=== PATIENT | male | born 1960 | race Caucasian/White ===

== ENCOUNTER → 2017-01-21 | Outpatient (CLI) | payer BC ==
--- NOTE | 2017-01-21 13:23 | DIAGNOSTIC IMAGING REPORT ---
CT OF THE HEAD WITHOUT CONTRAST CLINICAL HISTORY: Recurrent headaches. COMPARISON STUDY: Head CT December 20, 2005 and MRI the brain December 26, 2005. CT DOSE: 749.40 mGy.cm TECHNIQUE: Helical axial images of the head were obtained without IV contrast. Automated exposure control was utilized for the study. A dose lowering technique was utilized adhering to the principles of ALARA. FINDINGS: No acute intracranial hemorrhage, midline shift or mass effect is present. Ventricular system is normal. Basilar cisterns are patent. There are no extra-axial collections. [place]-white differentiation is maintained. There are no CT findings to suggest acute dural sinus thrombosis or acute territorial infarct. Visualized portions of the sinuses and mastoid air cells are clear. There are no significant calvarial abnormalities. IMPRESSION: No acute intracranial findings. Electronically signed by: Jason Hamlin M.D. 01/21/2017 1:22 PM Dictated Date/Time: 01/21/2017 1:17 PM
== END | disposition home or self-care (01) ==
LOC: C.CTS 13:03
PROVIDERS: ATTEND Family Medicine
DX: R51 Headache (principal)

== ENCOUNTER 2018-08-09 15:14 | Inpatient (IN) ==
[2018-08-09] MEDS ORDERED: dilTIAZem HCl 5 MG/ML 5 ML VIAL IV ONE (15:29)
[2018-08-09] MEDS ORDERED: dilTIAZem HCl 5 MG/ML 5 ML VIAL IV STA (15:31)
--- NOTE | 2018-08-09 15:37 | Emergency Department Note ---
Entered by Mohinder Smith acting as a scribe for Adelfo Buchanan DO History of Present Illness General Chief complaint: Chest Pain Stated complaint: CHEST PAIN NAUSEA Time Seen by Provider: 08/09/18 15:25 Source: patient Mode of arrival: ambulatory History of Present Illness Provider complaint: Chest Pain Onset (ago): hour(s) 2 Location: chest Pain Consistency: + constant Associated symptoms: + chest pain, + shortness of breath and + weakness; no nausea/vomiting Patient is a 58 year old male who presents himself to the ED with complains of chest pain which started two hours ago. He states he has been having occasional fluttering for the past couple months but they did not last too long. He is in the ED today as it was the worst today, The patient states he walks frequently during work which may be causing some of his symptoms. He notes having no past medical history and that he has scheduled an appointment with [facility] later next week. Home Medications Home Medications Medication Instructions Recorded Confirmed Type aspirin [Aspir-81] 81 mg PO DAILY 08/09/18 08/09/18 History atorvastatin 20 mg PO DAILY 08/09/18 08/09/18 History lisinopril 20 mg PO DAILY 08/09/18 08/09/18 History Allergies Allergy/AdvReac Type Severity Reaction Status Date / Time No Known Allergies Allergy Mild NONE Unverified 08/09/18 15:33 Past Med/Surg History Medical History Right foot pain (Chronic) Social History Feels Safe at Home: Yes Smoking Status: Never smoker Preferred Language: Austrian Review of Systems See HPI for pertinent positives & negatives. and A total of 10 systems reviewed and were otherwise negative Physical Exam Vital Signs Vital Signs - 24 hr 08/09/18 15:19 08/09/18 15:52 08/09/18 16:13 Temperature 36.3 C L Temperature Source Oral Sepsis Recent Fever Within 48 Hours No Sepsis New/Unexplained Change in Mental Status No Sepsis Action Taken by Nursing No Action Required Pulse Rate 98 H Pulse Rate [Left Finger] 86 80 Pulse Rhythm Pulse Rhythm [Left Finger] Irregular Pulse Strength [Left Finger] Normal Respiratory Rate 18 15 18 Respiratory Effort / Characteristics Non-Labored Non-Labored Respiratory Depth Normal Normal Respiratory Pattern Regular Blood Pressure 114/84 Blood Pressure [Left Arm] 103/69 115/65 Blood Pressure Mean 94 Blood Pressure Mean [Left Arm] 80 81 Blood Pressure Position Sitting Blood Pressure Position [Left Arm] Lying Pulse Oximetry 97 97 93 Oxygen Delivery Method Room Air 08/09/18 16:14 08/09/18 16:27 08/09/18 16:59 Temperature Temperature Source Sepsis Recent Fever Within 48 Hours Sepsis New/Unexplained Change in Mental Status Sepsis Action Taken by Nursing Pulse Rate 81 Pulse Rate [Left Finger] 95 H 73 Pulse Rhythm Irregular Pulse Rhythm [Left Finger] Pulse Strength [Left Finger] Respiratory Rate 18 19 18 Respiratory Effort / Characteristics Respiratory Depth Respiratory Pattern Blood Pressure Blood Pressure [Left Arm] 138/73 116/74 Blood Pressure Mean Blood Pressure Mean [Left Arm] 94 88 Blood Pressure Position Blood Pressure Position [Left Arm] Pulse Oximetry 94 95 96 Oxygen Delivery Method Room Air CONSTITUTIONAL/VITAL SIGNS: Reviewed / noted above. GENERAL: Non-toxic in appearance. INTEGUMENTARY: Warm, dry, and [place]. HEAD: Normocephalic. EYES: without scleral icterus or trauma. ENT/OROPHARYNX: clear and moist. LYMPHADENOPATHY/NECK: Is supple without lymphadenopathy or meningismus. RESPIRATORY: Lungs clear and equal. CARDIOVASCULAR: Regular irregular rate and rhythm. GUSTAVO GI/ABDOMEN: Soft and nontender. No organomegaly or pulsatile mass. No rebound or guarding. Normal bowel sounds. EXTREMITIES: Warm and well perfused. BACK: No CVA tenderness. NEUROLOGICAL: Intact without focal deficits. PSYCHIATRIC: normal affect. MUSCULOSKELETAL: Normally developed with good muscle tone. Course 1528: Past medical records reviewed. The patient was evaluated in room B01, and a complete history and physical examination were performed. 1616: I reevaluated the patient and gave updates to the patient regarding the treatment plan. 1713- I admitted the patient under the care of Dr. Drew Wing, Hospital[place], [facility] I spoke to the patient regarding the treatment plan they verbalized agreement. . Administered Medications Diltiazem HCl 125 mg/ Dextrose 125 mls @ 0 mls/hr IV .Q0M [facility]; Protocol Stop: 09/08/18 15:44 Last Admin: 08/09/18 16:12 Dose: 10 mg/hr, 10 mls/hr Discontinued Medications Diltiazem HCl (Cardizem) Confirm Administered Dose 50 mg IV .STK-MED ONE Stop: 08/09/18 15:30 Last Increment: 08/09/18 15:42 Dose: 30 mg Diltiazem HCl (Cardizem) 30 mg IV NOW STA Stop: 08/09/18 15:32 Last Admin: 08/09/18 15:43 Dose: Not Given Ondansetron HCl (Zofran) 4 mg IV NOW STA Stop: 08/09/18 16:18 Last Admin: 08/09/18 16:25 Dose: 4 mg Medical Decision Making Differential Diagnosis Differential includes acute coronary syndrome, myocardial infarction, CVA, TIA , anemia, infection, pneumonia, UTI, pyelonephritis, poor nutrition, dehydration , electrolyte disturbance,hypoglycemia. Medical Records Attestation: I reviewed the patient's medical records. Home Medications Current Medication List: was personally reviewed by me Laboratory Data Attestation: I reviewed the patient's lab results. Result diagrams: 08/09/18 15:32 08/09/18 15:32 Lab Results 08/09/18 08/09/18 08/09/18 Range/Units 15:32 15:32 15:32 WBC 9.39 (4.8-10.8) K/uL RBC 5.47 (4.7-6.1) M/uL Hgb 16.1 (14.0-18.0) g/dL POC Hgb (14.0-18.0) g/dl Hct 46.1 (42-52) % POC Hct (42-52) % MCV 84.3 (80-100) fL MCH 29.4 (25-34) pg MCHC 34.9 (32-36) g/dL RDW Std Deviation 39.7 (36.4-46.3) fL RDW Coeff of Andrew 13.0 (11.5-14.5) % Plt Count 272 (130-400) K/uL MPV 10.5 H (7.4-10.4) fL Immature Gran % (Auto) 0.2 % Neut % (Auto) 65.1 % Lymph % (Auto) 26.9 % [place] % (Auto) 5.5 % Eos % (Auto) 1.9 % Baso % (Auto) 0.4 % Immature Gran # (Auto) 0.02 (0.00-0.02) K/uL Neut # (Auto) 6.10 (1.4-6.5) K/uL Lymph # (Auto) 2.53 (1.2-3.4) K/uL [place] # (Auto) 0.52 (0.11-0.59) K/uL Eos # (Auto) 0.18 (0-0.5) K/uL Baso # (Auto) 0.04 (0-0.2) K/uL POC Sodium (135-144) mEq/L Sodium 140 (136-145) mmol/L POC Potassium (3.3-5.0) mEq/L Potassium 3.7 (3.5-5.1) mmol/L POC Chloride (101-112) mEq/L Chloride 109 H (98-107) mmol/L Carbon Dioxide 23 (21-32) mmol/L POC Total CO2 (24-31) mEq/l Anion Gap 8.0 (3-11) POC Anion Gap (16-25) mmol/L POC BUN (7-18) mg/dl BUN 16 (7-18) mg/dl Creatinine 1.06 (0.6-1.4) mg/dl POC Creatinine (0.6-1.3) mg/dl Est Cr Clr Drug Dosing 84.1 ml/min Est GFR ( Amer) 88.6 Est GFR (Non-Af Amer) 76.4 BUN/Creatinine Ratio 14.8 (10-20) Glucose 110 H (70-99) mg/dl POC Glucose (other) (70-99) mg/dl Calcium 8.4 L (8.5-10.1) mg/dl POC Ioniz Calcium Saúl (1.12-1.32) mmol/l Total Bilirubin 0.3 (0.2-1) mg/dl AST 22 (15-37) U/L ALT 28 (12-78) U/L Alkaline Phosphatase 73 (45-117) U/L Total Creatine Kinase 91 (39-308) U/L POC Troponin I (0-0.045) ng/ml Troponin I < 0.015 (0-0.045) ng/ml Total Protein 7.7 (6.4-8.2) gm/dl Albumin 3.7 (3.4-5.0) gm/dl Globulin 4.0 (2.5-4.0) gm/dl Albumin/Globulin Ratio 0.9 (0.9-2) TSH 1.060 (0.300-4.500) uIu/ml 08/09/18 08/09/18 Range/Units 15:32 15:33 WBC (4.8-10.8) K/uL RBC (4.7-6.1) M/uL Hgb (14.0-18.0) g/dL POC Hgb 15.3 (14.0-18.0) g/dl Hct (42-52) % POC Hct 45 (42-52) % MCV (80-100) fL MCH (25-34) pg MCHC (32-36) g/dL RDW Std Deviation (36.4-46.3) fL RDW Coeff of Andrew (11.5-14.5) % Plt Count (130-400) K/uL MPV (7.4-10.4) fL Immature Gran % (Auto) % Neut % (Auto) % Lymph % (Auto) % [place] % (Auto) % Eos % (Auto) % Baso % (Auto) % Immature Gran # (Auto) (0.00-0.02) K/uL Neut # (Auto) (1.4-6.5) K/uL Lymph # (Auto) (1.2-3.4) K/uL [place] # (Auto) (0.11-0.59) K/uL Eos # (Auto) (0-0.5) K/uL Baso # (Auto) (0-0.2) K/uL POC Sodium 143 (135-144) mEq/L Sodium (136-145) mmol/L POC Potassium 3.8 (3.3-5.0) mEq/L Potassium (3.5-5.1) mmol/L POC Chloride 106 (101-112) mEq/L Chloride (98-107) mmol/L Carbon Dioxide (21-32) mmol/L POC Total CO2 22 L (24-31) mEq/l Anion Gap (3-11) POC Anion Gap 19.0 (16-25) mmol/L POC BUN 16 (7-18) mg/dl BUN (7-18) mg/dl Creatinine (0.6-1.4) mg/dl POC Creatinine 1.0 (0.6-1.3) mg/dl Est Cr Clr Drug Dosing ml/min Est GFR ( Amer) Est GFR (Non-Af Amer) BUN/Creatinine Ratio (10-20) Glucose (70-99) mg/dl POC Glucose (other) 113 H (70-99) mg/dl Calcium (8.5-10.1) mg/dl POC Ioniz Calcium Saúl 1.14 (1.12-1.32) mmol/l Total Bilirubin (0.2-1) mg/dl AST (15-37) U/L ALT (12-78) U/L Alkaline Phosphatase (45-117) U/L Total Creatine Kinase (39-308) U/L POC Troponin I < 0.03 (0-0.045) ng/ml Troponin I (0-0.045) ng/ml Total Protein (6.4-8.2) gm/dl Albumin (3.4-5.0) gm/dl Globulin (2.5-4.0) gm/dl Albumin/Globulin Ratio (0.9-2) TSH (0.300-4.500) uIu/ml Imaging Data Attestation: I personally reviewed and interpreted this imaging study as follows : Radiologist's Impression: Radiology results as stated below per my review and the radiologist's interpretation: XR chest 1V portable CLINICAL HISTORY: 58 years-old Male presenting with Chest Pain. TECHNIQUE: Portable upright AP view of the chest was obtained. COMPARISON: 07/17/2011. FINDINGS: Cardiac silhouette top normal in size. No focal opacity. No large effusion or pneumothorax. Degenerative changes of the thoracic spine. Upper abdomen normal. IMPRESSION: 1. No acute cardiopulmonary disease. Electronically signed by: Wilian Pan M.D. 08/09/2018 3:45 PM ECG Data Attestation: I personally reviewed and interpreted this ECG as follows: Indication: chest pain Rate (beats per minute): 142 Rhythm: atrial fibrillation Findings: no ST elevation and no ectopy Blood Pressure Blood Pressure Findings: Normal blood pressure MDM Narrative This is a 58-year-old male who presents to the ED with a chief complaint of palpitations. The patient's symptoms started about 2 hours ago. He states that he has been having occasional fluttering that lasts only briefly for the past several months but today's episode lasted longer than any other one had. He had seen a key account manager and had a recent echocardiogram but does not know the results. He was also recently a event monitor. He states that he took it off when he was coming here. The patient's twelve-lead EKG here reveals atrial fibrillation at a rate of 142. The patient's exam as noted above. He does have a rapid irregular pulse and a systolic ejection murmur which the patient reports is chronic. CBC, complete metabolic panel, troponin, TSH were within normal limits. Chest x-ray did not show acute process. The patient was treated with IV Cardizem bolus with IV Cardizem drip. 30 mg bolus was provided. The patient's heart rate improved but the patient remained in atrial fibrillation. The patient was on a Cardizem drip. A repeat twelve-lead EKG after the heart rate was controlled reveals a heart rate of 73 in atrial fibrillation. No acute ischemic changes. The patient will be seen by the hospitalist for further evaluation and care. Impression & Plan Atrial fibrillation with rapid ventricular response Critical Care Time I have personally spent 30 minutes of critical care time in the direct management of this patient. This includes bedside care, interpretation of diagnostic studies, and testing, discussion with consultants, patient, and family members, and other required patient management activities. This 30 minutes is in excess of all separately billable procedures. Critical Care Time: Yes Total Critical Care Time: 30 Discharge Plan Visit Data Chief Complaint: Chest Pain Stated Complaint: CHEST PAIN NAUSEA ED Provider: Adelfo Buchanan Discharge Problem: Atrial fibrillation with rapid ventricular response Patient Disposition: Being Evaluated by Hospitalist Condition: Good Forms Stand Alone Forms: Call Back Authorization, My [facility] Prescriptions Prescriptions: No Action atorvastatin 20 mg tablet 20 mg PO DAILY RF: 0 lisinopril 20 mg tablet 20 mg PO DAILY RF: 0 aspirin [Aspir-81] 81 mg Tablet,Delayed Release (Dr/Ec) 81 mg PO DAILY RF: 0 Referrals Referrals: Fabricio Vogt DO [Primary Care Provider] - The scribe's documentation has been prepared under my direction and personally reviewed by me in its entirety. I confirm that the note above accurately reflects all work, treatment, procedures, and medical decision making performed by me.
[2018-08-09 15:45] LABS: Basophils # (auto) 0.04 K/uL (0-0.2); Basophils % (auto) 0.4 %; Eosinophils # (auto) 0.18 K/uL (0-0.5); Eosinophils % (auto) 1.9 %; Hematocrit (blood only) 46.1 % (42-52); Hemoglobin 16.1 g/dL (14.0-18.0); Immature Granulocytes # (auto) 0.02 K/uL (0.00-0.02); Immature Granulocytes % (auto) 0.2 %; Lymphocytes # (auto) 2.53 K/uL (1.2-3.4); Lymphocytes % (auto) 26.9 %; Mean Corpuscular Hgb Conc 34.9 g/dL (32-36); Mean Corpuscular Volume 84.3 fL (80-100); Mean Platelet Volume 10.5 fL (7.4-10.4); Monocytes # (auto) 0.52 K/uL (0.11-0.59); Monocytes % (auto) 5.5 %; Neutrophils % (auto) 65.1 %; Platelet Count 272 K/uL (130-400); RDW Standard Deviation 39.7 fL (36.4-46.3); Red Blood Count 5.47 M/uL (4.7-6.1); White Blood Count 9.39 K/uL (4.8-10.8)
[2018-08-09 15:46] LABS: iSTAT Hemoglobin 15.3 g/dl (14.0-18.0); iSTAT Ionized Calcium 1.14 mmol/l (1.12-1.32)
--- NOTE | 2018-08-09 15:47 | XRay Report ---
XR chest 1V portable CLINICAL HISTORY: 58 years-old Male presenting with Chest Pain. TECHNIQUE: Portable upright AP view of the chest was obtained. COMPARISON: 07/17/2011. FINDINGS: Cardiac silhouette top normal in size. No focal opacity. No large effusion or pneumothorax. Degenerat felix changes of the thoracic spine. Upper abdomen normal. IMPRESSION: 1. No acute cardiopulmonary disease. Electronically signed by: Wilian Pan M.D. 08/09/2018 3:45 PM
[2018-08-09 16:04] LABS: Alanine Aminotransferase 28 U/L (12-78); Albumin Level 3.7 gm/dl (3.4-5.0); Aspartate Aminotransferase 22 U/L (15-37); BUN Creatinine Ratio 14.8 (10-20); Blood Urea Nitrogen 16 mg/dl (7-18); Calcium 8.4 mg/dl (8.5-10.1); Carbon Dioxide 23 mmol/L (21-32); Chloride 109 mmol/L (98-107); Creatinine Clr Calc Pharmacy 84.1 ml/min; Est GFR (African American) 88.6; Est GFR (Non-African American) 76.4; Glucose 110 mg/dl (70-99); Potassium 3.7 mmol/L (3.5-5.1); Sodium 140 mmol/L (136-145)
[2018-08-09] MEDS: dilTIAZem HCl 125 MG in DEXTROSE 5% 100 ML IV SCH ×2 (16:12→20:25)
[2018-08-09 16:15] LABS: Albumin Globulin Ratio 0.9 (0.9-2); Alkaline Phosphatase 73 U/L (45-117); Bilirubin,Total 0.3 mg/dl (0.2-1); Total Protein 7.7 gm/dl (6.4-8.2); Troponin I < 0.015 ng/ml (0-0.045)
[2018-08-09] MEDS ORDERED: ONDANSETRON INJ 2 MG/ML 2 ML VIAL IV STA (16:17)
--- NOTE | 2018-08-09 18:34 | History & Physical Report ---
Date of Service August 09, 2018 Assessment & Plan (1) Atrial fibrillation with rapid ventricular response: new onset of intense symptoms, occurred about 2 hours prior to presentation however, has recent history of palpitations and irregular heart beat was being worked up as outpatient, was wearing monitor admit to tele continue Cardizem drip for rate control, convert to PO medications tomorrow per cardiology Lovenox 1mg/kg q12 for full anticoagulation had echo as outpatient, Dr. Rachel will have these results cycle troponin to r/o ACS since he did have some chest pressure will defer to Dr. Rachel for definitive management moving forward (2) HTN (hypertension): hold Lisinopril since BP is normal on Cardizem drip likely stop the Lisinopril on discharge if he will be on oral rate control (3) Dyslipidemia: continue Lipitor 35 minutes spent on this admission History of Present Illness Chief Complaint: I felt my heart was pounding in my chest Primary Care Provider: Fabricio Vogt, DO 58 yo male with history of HTN and dyslipdemia, presented to the ED c/o heart palpitations, mild chest discomfort, diaphoresis and feeling flushed. He says that he was sitting watching television when he developed the above symptoms. He reports that he has felt palpitations intermittently for the past few weeks. He saw his PCP in the office, EKG showed normal sinus rhythm. He was set up with an event monitor for a few weeks, echocardiogram ordered and he is supposed to have cardiology consultation on Friday with Dr. Rachel. He says that while wearing the monitor he has pushed the button several times when he felt like he was having palpitations. He said that Dr. Vogt, his PCP, started him on Lisinopril 20mg daily and Lipitor 20mg daily two weeks ago. He said that he has not been great at taking the medications every day, he has never needed to take medications in his life. He says that for the past two weeks he has felt worse in general. 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 Prior to the past two weeks he has never had chest pain or pressure. He had a stress test many years ago that was normal. When his symptoms of chest pressure, palpitations, sweats and flushing got worse he decided to come to the ED. On the monitor he was in afib with rates in the 140's. Given bolus of cardizem and started on drip, HR down into the 70- 80's, still in atrial fibrillation. CBC and BMP unremarkable. He now feels better. Patient has a family history of a sister who dropped from a heart attack at age 58, one year younger than he is now. She smoked and had elevated cholesterol and was not as fit as him, but it still worries him. He had an uncle on his father's side who from [place] at age 60. His mother from cancer. His father in an MVA when he was younger. Allergies Allergy/AdvReac Type Severity Reaction Status Date / Time No Known Allergies Allergy Mild NONE Unverified 08/09/18 15:33 Home Medications Home Medications Medication Instructions Recorded Confirmed Type aspirin [Aspir-81] 81 mg PO DAILY 08/09/18 08/09/18 History atorvastatin 20 mg PO DAILY 08/09/18 08/09/18 History lisinopril 20 mg PO DAILY 08/09/18 08/09/18 History Past Med/Surg History Medical History Right foot pain (Chronic) Dyslipidemia HTN (hypertension) Family History Sister , age 58 Heart attack Uncle , age 60 Heart attack Social History Feels Safe at Home: Yes Smoking Status: Never smoker Preferred Language: Wolof Review of Systems All systems reviewed & are unremarkable except as noted in HPI & below Constitutional: + sweats, + fatigue and + weakness; no weight loss Cardiovascular: + chest pain, + chest pain at rest, + dyspnea and + palpitations ; no chest pain with activity, no radiating jaw, neck or arm pain, no dyspnea at rest, no dyspnea on exertion, no orthopnea, no syncope, no edema, no calf pain and no claudication Physical Exam 2 Vital Signs (Past 24 Hours): Last Vital Signs Temp 36.3 C L 08/09/18 15:19 Pulse 70 08/09/18 17:55 Resp 18 08/09/18 17:55 BP 111/72 08/09/18 17:55 Pulse Ox 96 08/09/18 17:55 Constitutional: WD/WN, vitals as above Eyes: PERRL, conjunctivae normal, anicteric sclerae ENMT: external ear and nose normal, oropharynx normal Neck: trachea midline, no thyromegaly Respiratory: normal respiratory effort, lungs clear to auscultation Cardiovascular: Rate/Rhythm: regular rate; + abnormal rhythm (irregular irregular) Heart Sounds: normal S1 and + murmur (soft, systolic, heard best at apex); + abnormal S2 (crisp, almost like a click) Palpation: normal PMI Vessels: normal peripheral pulses; no JVD Extremities: no pedal edema Gastrointestinal (Abdomen): normal bowel sounds, soft, nontender, no hepatosplenomegaly Musculoskeletal: no cyanosis or clubbing, extremities motor strength 5/5 Skin: no rashes, warm and dry Neurologic: patellar DTR's 2+ bilat, sensation intact and PERRL, EOMI, accommodation nl, no face palsy, no dysarthria Psychiatric: A+Ox3, euthymic affect Lymphatic: no cervical or axillary lymphadenopathy Results & Data Laboratory Results Laboratory Results - last 24 hr 08/09/18 08/09/18 08/09/18 15:32 15:32 15:32 WBC 9.39 RBC 5.47 Hgb 16.1 POC Hgb Hct 46.1 POC Hct MCV 84.3 MCH 29.4 MCHC 34.9 RDW Std Deviation 39.7 RDW Coeff of Andrew 13.0 Plt Count 272 MPV 10.5 H Immature Gran % (Auto) 0.2 Neut % (Auto) 65.1 Lymph % (Auto) 26.9 [place] % (Auto) 5.5 Eos % (Auto) 1.9 Baso % (Auto) 0.4 Immature Gran # (Auto) 0.02 Neut # (Auto) 6.10 Lymph # (Auto) 2.53 [place] # (Auto) 0.52 Eos # (Auto) 0.18 Baso # (Auto) 0.04 POC Sodium Sodium 140 POC Potassium Potassium 3.7 POC Chloride Chloride 109 H Carbon Dioxide 23 POC Total CO2 Anion Gap 8.0 POC Anion Gap POC BUN BUN 16 Creatinine 1.06 POC Creatinine Est Cr Clr Drug Dosing 84.1 Est GFR ( Amer) 88.6 Est GFR (Non-Af Amer) 76.4 BUN/Creatinine Ratio 14.8 Glucose 110 H POC Glucose (other) Calcium 8.4 L POC Ioniz Calcium Saúl Total Bilirubin 0.3 AST 22 ALT 28 Alkaline Phosphatase 73 Total Creatine Kinase 91 POC Troponin I Troponin I < 0.015 Total Protein 7.7 Albumin 3.7 Globulin 4.0 Albumin/Globulin Ratio 0.9 TSH 1.060 08/09/18 08/09/18 15:32 15:33 WBC RBC Hgb POC Hgb 15.3 Hct POC Hct 45 MCV MCH MCHC RDW Std Deviation RDW Coeff of Andrew Plt Count MPV Immature Gran % (Auto) Neut % (Auto) Lymph % (Auto) [place] % (Auto) Eos % (Auto) Baso % (Auto) Immature Gran # (Auto) Neut # (Auto) Lymph # (Auto) [place] # (Auto) Eos # (Auto) Baso # (Auto) POC Sodium 143 Sodium POC Potassium 3.8 Potassium POC Chloride 106 Chloride Carbon Dioxide POC Total CO2 22 L Anion Gap POC Anion Gap 19.0 POC BUN 16 BUN Creatinine POC Creatinine 1.0 Est Cr Clr Drug Dosing Est GFR ( Amer) Est GFR (Non-Af Amer) BUN/Creatinine Ratio Glucose POC Glucose (other) 113 H Calcium POC Ioniz Calcium Saú[place] 1.14 Total Bilirubin AST ALT Alkaline Phosphatase Total Creatine Kinase POC Troponin I < 0.03 Troponin I Total Protein Albumin Globulin Albumin/Globulin Ratio TSH Diagnostic Findings CHEST XRAY: no acute cardiopulmonary disease ECG Indication: palpitations Rhythm: atrial fibrillation Code Status & VTE Plan Code Status full code VTE Prophylaxis Plan VTE Prophylaxis will be ordered: Yes
[2018-08-09] MEDS ORDERED: ACETAMINOPHEN 325 MG TAB PO PRN (19:15)
[2018-08-09] MEDS ORDERED: POLYETHYLENE (MIRALAX) 17 GM PACK PO PRN (19:15)
[2018-08-09] MEDS: ONDANSETRON INJ 2 MG/ML 2 ML VIAL IV PRN (20:25)
[2018-08-09 20:33] LABS: Prothrombin Time 9.9 Seconds (9.0-12.0)
[2018-08-09] MEDS ORDERED: NSS + 20MEQ KCL 20 MEQ/1,000 ML BAG IV SCH (21:00)
[2018-08-09] MEDS: ENOXAPARIN 100 MG/1ML SYR SQ SCH (21:02)
[2018-08-10 05:55] LABS: Basophils # (auto) 0.02 K/uL (0-0.2); Basophils % (auto) 0.2 %; Eosinophils % (auto) 2.2 %; Hematocrit (blood only) 41.2 % (42-52); Immature Granulocytes # (auto) 0.01 K/uL (0.00-0.02); Immature Granulocytes % (auto) 0.1 %; Lymphocytes # (auto) 2.96 K/uL (1.2-3.4); Lymphocytes % (auto) 32.5 %; Mean Corpuscular Volume 85.7 fL (80-100); Mean Platelet Volume 10.4 fL (7.4-10.4); Monocytes # (auto) 0.48 K/uL (0.11-0.59); Monocytes % (auto) 5.3 %; Neutrophils # (auto) 5.43 K/uL (1.4-6.5); Neutrophils % (auto) 59.7 %; Platelet Count 232 K/uL (130-400); RDW Coefficient of Variation 13.2 % (11.5-14.5); RDW Standard Deviation 41.3 fL (36.4-46.3); Red Blood Count 4.81 M/uL (4.7-6.1)
[2018-08-10 06:34] LABS: BUN Creatinine Ratio 14.6 (10-20); Calcium 8.2 mg/dl (8.5-10.1); Creatinine Clr Calc Pharmacy 94.4 ml/min; Est GFR (African American) 109.5; Est GFR (Non-African American) 94.5
[2018-08-10] MEDS: ASPIRIN 81 MG ECTAB PO SCH (09:03)
[2018-08-10] MEDS: ATORVASTATIN 20 MG TAB PO SCH (09:03)
[2018-08-10] MEDS: ENOXAPARIN 100 MG/1ML SYR SQ SCH (09:11)
--- NOTE | 2018-08-10 10:13 | Consultation Report ---
DATE OF CONSULTATION: 08/10/2018 REQUESTING PHYSICIAN: Noman Wing DO REASON FOR CONSULTATION: Atrial fibrillation and murmur consistent with mitral regurgitation. Dear Noman: Thank you for requesting cardiology consultation on Justin. As you know, he has described palpitations over the last 3 months intermittently, usually only lasting a couple of minutes. He notes on Friday they lasted longer. 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 He was nauseous. 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 He was able to complete the day. He notes on Friday he felt better. He has had an event recorder on and we know from his event recorder both Friday afternoon as well as Friday, he had recurrent atrial fibrillation. On Friday, again he felt fluttering and felt like his heart was racing. He did not feel well and was nauseous again. 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 This subsequently caused him to come to the Emergency Room. In the ER, he was found to be in atrial fibrillation with a rapid ventricular response. It looks like he was given a bolus of diltiazem and then they started him on a drip. He had a syncopal episode after this with loss of bowel function. It sounds like he was hypotensive, likely from the diltiazem bolus although this is not documented. He has had a murmur for approximately 4 years. He had an echocardiogram scheduled, which was completed in our office, which reveals mitral valve prolapse with prolapse of the P2 segment and possibly P1 with severe mitral regurgitation with a very eccentric jet directed towards the interatrial septum. The mitral regurgitation wraps around the left atrium to the posterior wall with pulmonary vein reversal. His LVEF was in the range of 60%. It did not appear hyperdynamic. There were no wall motion abnormalities and he had type 2 diastolic dysfunction. In addition, his pulmonary artery pressures were normal. He is feeling better now. The nausea has resolved. He is still in atrial fibrillation, but his heart rates are better controlled on 5 mg of diltiazem via IV. REVIEW OF SYSTEMS: Denies any light dizziness, presyncope, or syncope outside of the ER episode. He has some vague left-sided chest pain while in Afib but his troponins are negative. He denies any lower extremity edema, symptoms of claudication. Denies any abdominal distention, fevers, chills, sweats, cough, or productive sputum. His appetite and weight are stable. The rest of review of system is otherwise negative. 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 He has 1 alcoholic beverage a week. He denies any tobacco. He is . FAMILY HISTORY: His sister of a heart attack at the age of 58. He has an uncle who at the age of 60 of heart attack. PAST MEDICAL HISTORY: 1. Mitral valve prolapse with severe mitral regurgitation. 2. EF in the range of 60% by outpatient echo. 3. Atrial fibrillation with a rapid ventricular response. 4. Hypertension. 5. Hyperlipidemia. ALLERGIES: No known drug allergies. OUTPATIENT MEDICATIONS: Aspirin, atorvastatin 20 mg daily, and Lisinopril 20 mg daily. PHYSICAL EXAMINATION: HEENT: 1+ carotid upstrokes. No carotid bruits. Venous pressure appeared normal. Sclerae is anicteric. Hearing is normal. LUNGS: Respirations bilaterally. No rales, rhonchi or wheezing. HEART: Irregular rate and rhythm with a harsh holosystolic murmur 3/6 at the apex. ABDOMEN: Soft, nontender, nondistended. Positive bowel sounds. EXTREMITIES: No clubbing, cyanosis, or edema. PSYCHIATRIC: His affect appeared appropriate. NEUROLOGIC: He is awake, alert and oriented x3. DIAGNOSTIC STUDIES: Discussed above. EKG this morning, atrial fibrillation with a controlled ventricular response early repolarization, left ventricular hypertrophy. LABORATORY STUDIES: His troponins are negative x3. His hemoglobin is 14.0. His platelet count is 232. PT and INR were normal. Sodium 142, potassium 4.0, BUN 13, creatinine 0.87. His troponins are negative x3. IMPRESSION: 1. New onset atrial fibrillation with rapid ventricular response. 2. Newly-diagnosed mitral valve prolapse, predominantly involving the P2 segment with severe eccentric mitral regurgitation. 3. Normal left ventricular systolic function with an ejection fraction in the range of 60%, but not hyperdynamic as one would expect with severe mitral regurgitation. 4. Severe left atrial enlargement. 5. CHADS2-VASc score of 1, that being hypertension. As I discussed with Justin, the biggest issue is actually not his atrial fibrillation but rather the fact that he has severe mitral regurgitation, which is now symptomatic and causing volume overload on the left ventricle. We discussed that his EF should be hyperdynamic at least in the range of 65%-70% if not, greater. In light of that, he needs to consider mitral valve repair and a maze procedure at the same time to help treat his atrial fibrillation. Given the size of his left atrium and the ongoing mitral regurgitation, there is no benefit of trying to cardiovert him as it is unlikely he will stay in sinus rhythm. His current CHADS2-VASc score is 1 that being hypertension. Therefore, he just needs aspirin therapy and not anticoagulation. I discussed to him as part of the process for the workup for his mitral valve repair, he would need a cardiac catheterization as well as a transesophageal echocardiogram. I discussed the risks and benefits of cardiac catheterization. Risks including but not limited to bleeding or infection of the puncture site, damage to his radial or femoral artery, risk of contrast-induced nephropathy, allergic reaction to contrast, and 100,000 risk of heart attack, stroke or dying with the procedures were discussed. I will also need a transesophageal echocardiogram to confirm that it is the P2 segment that needs to be repaired. Additionally, he will need to be seen by CT surgery at [facility] as an outpatient along with a CAT scan of his chest and preadmission testing with anesthesia. I did discuss with him assuming it is a P2 segment, the success rate is very high with mitral valve repair which is another reason to proceed sooner than later. There is still a small chance that he would end up with a prosthetic valve if the valve is not repairable. We also discussed that he is a potential candidate for a mini thoracotomy in order to repair his mitral valve as opposed to a traditional sternotomy. This was a lot for him to take in at a single point in time. We discussed all this in detail. He has not had his medications this morning. We will make him n.p.o. and plan for his catheterization today. I will contact the echo lab to determine the timing of his JOSE. Thank you for allowing us to participate in his care. Addendum: D/W Dr Sams. Cath with LM 50-60% (+by IFR) and severe ostial cx disease. Needs transfer to [facility] for Cabg and MV repair. Chads 2 Vasc now 2 with CAD and will need AC fdc. Will discuss transfer in the am. MELLISSA
[2018-08-10] MEDS: METOPROLOL TARTRATE 25 MG TAB PO SCH ×3 (10:37→19:46)
[2018-08-10] MEDS ORDERED: dilTIAZem HCl 125 MG in DEXTROSE 5% 100 ML IV SCH (11:20)
[2018-08-10] MEDS: ONDANSETRON INJ 2 MG/ML 2 ML VIAL IV PRN (12:45)
--- NOTE | 2018-08-10 13:20 | Medical Student Progress Note ---
Date of Service August 10, 2018 Assessment & Plan (1) Atrial fibrillation with rapid ventricular response: 1. Consulted cardiology who found Mitral valve prolapse on echo. Cardiology suggested need for repair of mitral valve sooner rather than later in [place]. In order to prepare for this procedure, the patient will need: a. Cardiac catheterization, hopefully this afternoon, he has been NPO since 7 :30 am b. JOSE to visualize the mitral valve leaflets, Cardiology will try to set this up later today 2. Discontinue diltiazem IV and start metoprolol 25 mg Present on Admission?: No Subjective Mr. Sears began to feel better after he was admitted to telemetry last night. Overnight, he felt a flutter in his chest every so often, especially if he laid on his left side. He still has an aching pain in his left chest. His nausea has resolved. Review of Systems All systems reviewed & are unremarkable except as noted in HPI & below Cardiovascular: + chest pain, + chest pain at rest and + palpitations Physical Exam 2 Vital Signs (Past 24 Hours): Last Vital Signs Temp 36.7 C 08/10/18 07:14 Pulse 90 08/10/18 10:37 Resp 15 08/10/18 10:37 BP 111/73 08/10/18 10:37 Pulse Ox 96 08/10/18 10:37 Constitutional: well developed and well nourished Eyes: PERRL, conjunctivae normal, anicteric sclerae ENMT: external ear and nose normal, oropharynx normal Neck: normal visual inspection No JVD Respiratory: normal respiratory effort, lungs clear to auscultation Cardiovascular: Rate/Rhythm: regular rate irregularly irregular rhythm, grade 3 holosystolic murmur heard at the mitral area Gastrointestinal (Abdomen): normal bowel sounds, soft, nontender, no hepatosplenomegaly Musculoskeletal: Extremities: extremities normal to inspection Skin: no rashes, warm and dry Psychiatric: A+Ox3, euthymic affect Lymphatic: no cervical or axillary lymphadenopathy Results & Data Laboratory Results CBC: WNL BMP: elevated Cl at 112, low Ca at 8.2 Diagnostic Findings Echo: mitral valve prolapse with severe mitral regurgetation, Ejection fraction : 60% CXR: no acute cardio/pulm disease process ECG Indication: palpitations Rhythm: atrial fibrillation
[2018-08-10] MEDS ORDERED: fentaNYL citrate 100 MCG/2 ML VIAL ONE ×2 (14:42→16:04)
[2018-08-10] MEDS ORDERED: MIDAZOLAM HCL 1 MG/ML 2ML VIAL ONE ×2 (14:42→16:03)
[2018-08-10] MEDS ORDERED: NiCARDipine HCL INJ 2.5 MG/ML 10 ML AMP ONE (14:43)
[2018-08-10] MEDS ORDERED: HEPARIN (PORCINE) 1000 UNIT/ML 10 ML (CATH LAB USE ONLY) ONE ×2 (14:43→16:12)
[2018-08-10] MEDS ORDERED: NITROGLYCERIN/D5W 100MCG/ML 20ML SYR ONE (14:43)
[2018-08-10 16:00] LABS: iSTAT Arterial Blood Gas HCO3 20 meg/L (19-24); iSTAT Carbon Dioxide 21 mEq/l (24-31)
--- NOTE | 2018-08-10 17:10 | Cardiology Consultation ---
Date of Consultation August 10, 2018 Assessment & Plan (1) Severe mitral regurgitation: 2. Atrial fibrillation with RVR 3. LVEF 60% 4. Severe left atrial enlargement 5. Hypertension Patient here with atrial fibrillation with RVR in the setting of symptomatic severe eccentric mitral regurgitation. Mitral valve repair is being considered. As part of workup agree with proceeding with right and left heart catheterization. No apparent contraindications to procedure and will plan to perform via antecubital vein and right radial artery. History of Present Illness Attending Physician: Noman Wing DO History of Present Illness Mr. Sears is a very pleasant 58-year-old man with a history of newly diagnosed atrial fibrillation with RVR complicated by syncope and severe mitral valve prolapse with resulting severe eccentric mitral regurgitation. Patient is followed by Dr. Rachel for his cardiac care. Interventional cardiology consulted for cardiac catheterization as part of evaluation for mitral repair. At time of interview patient feeling well. Denies any current palpitations, presyncopal symptoms. Rate controlled on diltiazem, Lopressor. Not currently on anticoagulation. Up until recently no prior cardiac tree. Never had a cardiac catheterization previously. Allergies Allergy/AdvReac Type Severity Reaction Status Date / Time No Known Allergies Allergy Mild NONE Unverified 08/09/18 15:33 Home Medications Home Medications Medication Instructions Recorded Confirmed Type aspirin [Aspir-81] 81 mg PO DAILY 08/09/18 08/09/18 History atorvastatin 20 mg PO DAILY 08/09/18 08/09/18 History lisinopril 20 mg PO DAILY 08/09/18 08/09/18 History Patient History Medical History Right foot pain (Chronic) Dyslipidemia HTN (hypertension) Social History Current Living Situation: Spouse Other Information That Helps Us Care for You: No Feels Safe at Home: Yes Safety Concerns: Feels Safe At This Time Smoking Status: Never smoker Hx Alcohol Use: Yes Alcohol type: beer Alcohol Intake Frequency: a few times a week Hx Substance Use: No Beliefs That Will Affect Care: None Preferred Language: Irish Review of Systems 10 point review of systems was completed and was otherwise negative unless stated in HPI Physical Exam 2 Vital Signs (Past 24 Hours): Last Vital Signs Temp 36.7 C 08/10/18 07:14 Pulse 90 08/10/18 14:40 Resp 16 08/10/18 14:40 BP 126/87 08/10/18 14:40 Pulse Ox 97 08/10/18 14:40 Physical Exam: General: Comfortable, no acute distress Eyes: Sclerae anicteric, extraocular movements intact HENT: Oropharynx clear mucous membranes moist Neck: Normal carotid upstrokes, no bruits. No JVD. Lungs: Clear to auscultation bilaterally, no rhonchi or wheezes Cardiac: Irregularly irregular, holosystolic murmur heard best at the apex Vascular: 2+ radial, DP and PT pulses. No varicosities. Abdomen: Soft, nontender, nondistended, positive bowel sounds. Extremities: Well perfused, no peripheral edema Skin: No rashes or lesions. Neuro: Nonfocal Psych: Alert orient x3, normal affect and mood
--- NOTE | 2018-08-10 17:10 | Pre Anesthesia Assessment ---
Date of Service August 10, 2018 Pre Sedation Assessment Vital Signs Temp Pulse Pulse Pulse Resp BP BP 08/10/18 14:40 90 16 126/87 08/10/18 10:37 90 15 111/73 08/10/18 07:14 36.7 C 87 15 114/76 08/10/18 07:00 74 08/10/18 03:37 36.7 C 76 19 08/09/18 23:15 36.8 C 77 16 08/09/18 20:19 79 08/09/18 19:10 36.4 C L 83 20 08/09/18 18:55 72 18 122/78 08/09/18 17:55 70 18 111/72 BP Pulse Ox 08/10/18 14:40 97 08/10/18 10:37 96 08/10/18 07:14 96 08/10/18 07:00 08/10/18 03:37 131/79 97 08/09/18 23:15 115/72 96 08/09/18 20:19 139/76 08/09/18 19:10 147/89 H 94 08/09/18 18:55 95 08/09/18 17:55 96 Cardiovascular RRR, no murmur, no edema Respiratory normal respiratory effort, lungs clear to auscultation Pre-Sedation Airway Assessment Smoking Status: Never smoker Hx Sleep Apnea: No Hx Difficult Intubation: No Short, Thick Neck: No Thyromental Distance: > or= 3.5 Finger Breadths Mallampati Class: III Procedure Planning Contraindications for Sedation: none Current Medications Reviewed: Yes Notes The planned sedation has been discussed with the patient. Informed Consent was obtained. I have identified the patient, determined the appropriateness of sedation and have assessed the patient immediately prior to the procedure. All medicine(s) and interventions are by my order.
--- NOTE | 2018-08-10 17:10 | Cardiac Catheterization ---
Cardiac Cath Procedure Full Procedure Date August 10, 2018 Pre-Procedure Diagnosis Pre-Procedure Diagnosis: Valvular Disease AUC Score AUC Score: 7 Post-Procedure Diagnosis Post-Procedure Diagnosis: Severe CAD and Normal Intracardiac Pressures Procedure(s) Performed Procedure(s) Performed: Coronary Angiography, Left Heart Cath, Right Heart Cath and Fractional Flow [place] [facility] Nurse Scotty Sams MD Technician(s) Glunt Estimated Blood Loss Estimated Blood Loss: 10 Medication(s) Medication(s): Fentanyl, Heparin, Lidocaine 1%, Nicardipine, Nitroglycerin and Versed Summary of Findings Indication: Severe symptomatic mitral regurgitation Access: 5 [place] right radial artery, 6 [place] right antecubital vein Catheters: [place], 6 [place]. 5 [place] JL 3.5 guide, 5 [place] JR4 guide Findings: LM -50% eccentric distal left main stenosis just prior to bifurcation LAD -moderate caliber vessel, mild diffuse proximal disease, distal luminal irregularities as tapers to apex. Gives off 2 moderate caliber diagonals without significant disease Circumflex -small to moderate caliber vessel, 90% ostial stenosis, diffuse mild to moderate mid segment disease prior to OM 2 RCA -large caliber vessel, dominant, mid segment luminal irregularities, 50-60% distal stenosis at bifurcation of right PDA, right PLB. FFR of left main Left main cannulated with JL 3.5 guide Straight FFR wire placed into mid LAD iFR 0.87 Post procedure no coronary complications FFR of distal RCA RCA cannulated with JR4 guide Straight FFR wire placed into right PDA iFR 0.94 Post procedure no coronary complications RA 3 RV 30/4 PA 29/13 (21) PAWP 9 (V waves to 27) LV 4 PaSat 61% AoSat 91% Ibeth CO/CI 4.5/2.2 Thermo CO/CI 4.8/2.4 Arterial Closure: TR Summary: 1. Severe multivessel coronary artery disease -50% eccentric distal left main (hemodynamic significant by iFR 0.87). -90% ostial circumflex 50-60% distal RCA (nonobstructive by iFR 0.94). 2. Normal left and right-sided filling pressures. 3. Normal pulmonary artery pressures. 4. Preserved cardiac output. 5. Severe mitral regurgitation by echocardiogram Recommendations: Dr. 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
--- NOTE | 2018-08-10 17:11 | Hospitalist Progress Note ---
Date of Service August 10, 2018 Assessment & Plan (1) Severe mitral regurgitation: likely posterior leaf issue will get JOSE tomorrow to get better imaging of the mitral valve will need referral to [place] for mitral valve repair vs replacement heart cath today with moderate to severe disease, will likely need concurrent CABG (2) Atrial fibrillation with rapid ventricular response: new onset of intense symptoms, occurred about 2 hours prior to presentation however, has recent history of palpitations and irregular heart beat was being worked up as outpatient, was wearing monitor which showed short runs of atrial fibrillation afib caused by left atrial dilation from severe mitral regurgitation rates controlled on diltiazem drip converted to metoprolol 25mg TID today BP a little on low side, will monitor over night no need for anticoagulation since CHADS score 1, continue on aspirin (3) CAD (coronary artery disease): disease in RCA, circumflex, left main will refer to cardiothoracic surgery at [place] for CABG continue aspirin and Lipitor (4) HTN (hypertension): continue Metoprolol 25mg TID will stop Lisinopril on discharge (5) Dyslipidemia: continue Lipitor, now with known CAD Subjective patient feeling better this morning, no chest pain, no palpitations, no dyspnea or syncope discussed with Dr. Rachel, appreciate his recommendations for JOSE and heart catheterization discussed with Dr. Sams after cath, has moderate to severe disease in several areas, needs CABG reviewed labs, stable Review of Systems All systems reviewed & are unremarkable except as noted in HPI & below Cardiovascular: no chest pain, no dyspnea, no dyspnea on exertion and no palpitations Physical Exam 2 Vital Signs (Past 24 Hours): Last Vital Signs Temp 36.7 C 08/10/18 07:14 Pulse 90 08/10/18 14:40 Resp 16 08/10/18 14:40 BP 126/87 08/10/18 14:40 Pulse Ox 97 08/10/18 14:40 Constitutional: WD/WN, vitals as above Eyes: PERRL, conjunctivae normal, anicteric sclerae ENMT: external ear and nose normal, oropharynx normal Neck: trachea midline, no thyromegaly Respiratory: normal respiratory effort, lungs clear to auscultation Cardiovascular: Rate/Rhythm: regular rate; + abnormal rhythm (irregular irregular) Heart Sounds: normal S1 and + murmur (soft, systolic, heard best at apex); + abnormal S2 (crisp, almost like a click) Palpation: normal PMI Vessels: normal peripheral pulses; no JVD Extremities: no pedal edema Gastrointestinal (Abdomen): normal bowel sounds, soft, nontender, no hepatosplenomegaly Musculoskeletal: no cyanosis or clubbing, extremities motor strength 5/5 Skin: no rashes, warm and dry Neurologic: patellar DTR's 2+ bilat, sensation intact and PERRL, EOMI, accommodation nl, no face palsy, no dysarthria Psychiatric: A+Ox3, euthymic affect Lymphatic: no cervical or axillary lymphadenopathy Results & Data Laboratory Results Laboratory Results - last 24 hr 08/10/18 08/10/18 08/10/18 05:36 05:36 15:31 WBC 9.10 RBC 4.81 Hgb 14.0 Hct 41.2 L MCV 85.7 MCH 29.1 MCHC 34.0 RDW Std Deviation 41.3 RDW Coeff of Andrew 13.2 Plt Count 232 MPV 10.4 Immature Gran % (Auto) 0.1 Neut % (Auto) 59.7 Lymph % (Auto) 32.5 [place] % (Auto) 5.3 Eos % (Auto) 2.2 Baso % (Auto) 0.2 Immature Gran # (Auto) 0.01 Neut # (Auto) 5.43 Lymph # (Auto) 2.96 [place] # (Auto) 0.48 Eos # (Auto) 0.20 Baso # (Auto) 0.02 POC pH 7.38 POC pCO2 34 L POC pO2 61 L POC HCO3 20 POC Total CO2 21 L POC Base Excess -5.0 POC ABG O2 Sat 91.0 Sodium 142 Potassium 4.0 Chloride 112 H Carbon Dioxide 24 Anion Gap 6.0 BUN 13 Creatinine 0.87 Est Cr Clr Drug Dosing 94.4 Est GFR ( Amer) 109.5 Est GFR (Non-Af Amer) 94.5 BUN/Creatinine Ratio 14.6 Glucose 101 H Calcium 8.2 L Diagnostic Findings ECHOCARDIOGRAM: done as outpatient with [facility] cardiology EF preserved severe mitral regurgitation, possible posterior leaflet malfunction dilated left atrium Medications Administered Current Inpatient Medications Acetaminophen (Tylenol) 650 mg PO Q4H PRN PRN Reason: Pain or Fever Stop: 09/08/18 19:14 Aspirin (Ecotrin Ectab) 81 mg PO DAILY [facility] Stop: 09/09/18 08:59 Last Admin: 08/10/18 09:03 Dose: 81 mg Atorvastatin Calcium (Lipitor) 20 mg PO DAILY [facility] Stop: 09/09/18 08:59 Last Admin: 08/10/18 09:03 Dose: 20 mg Diltiazem HCl 125 mg/ Dextrose 125 mls @ 10 mls/hr IV .[id number] [facility]; Protocol Stop: 09/09/18 11:18 Last Admin: 08/10/18 13:45 Dose: Not Given Sodium Chloride (Nss 1000ml) 1,000 mls @ 75 mls/hr IV .[id number] [facility] Stop: 08/11/18 00:39 Last Admin: 08/10/18 17:48 Dose: 75 mls/hr Metoprolol Tartrate (Lopressor) 25 mg PO TID [facility] Stop: 09/09/18 09:59 Last Admin: 08/10/18 19:46 Dose: 25 mg Ondansetron HCl (Zofran) 4 mg IV Q6H PRN PRN Reason: Nausea Stop: 09/08/18 19:14 Last Admin: 08/10/18 12:45 Dose: 4 mg Polyethylene Glycol (Miralax Powder Packet) 17 gm PO DAILY PRN PRN Reason: Constipation Stop: 09/08/18 19:14
[2018-08-10] MEDS ORDERED: SODIUM CHLORIDE 0.9% 1000ML 1,000 ML IV SCH (18:00)
[2018-08-11] MEDS: ASPIRIN 81 MG ECTAB PO SCH (08:29)
[2018-08-11] MEDS: METOPROLOL TARTRATE 25 MG TAB PO SCH ×2 (08:29→13:23)
[2018-08-11] MEDS: ATORVASTATIN 20 MG TAB PO SCH (08:29)
[2018-08-11 08:45] LABS: Basophils # (auto) 0.03 K/uL (0-0.2); Basophils % (auto) 0.3 %; Hematocrit (blood only) 43.2 % (42-52); Hemoglobin 14.8 g/dL (14.0-18.0); Immature Granulocytes # (auto) 0.02 K/uL (0.00-0.02); Immature Granulocytes % (auto) 0.2 %; Lymphocytes # (auto) 1.82 K/uL (1.2-3.4); Lymphocytes % (auto) 18.8 %; Mean Corpuscular Hgb Conc 34.3 g/dL (32-36); Mean Corpuscular Volume 83.7 fL (80-100); Mean Platelet Volume 10.4 fL (7.4-10.4); Monocytes # (auto) 0.42 K/uL (0.11-0.59); Monocytes % (auto) 4.3 %; Neutrophils # (auto) 7.27 K/uL (1.4-6.5); Neutrophils % (auto) 75.4 %; Platelet Count 240 K/uL (130-400); RDW Coefficient of Variation 13.1 % (11.5-14.5); RDW Standard Deviation 40.3 fL (36.4-46.3); Red Blood Count 5.16 M/uL (4.7-6.1); White Blood Count 9.66 K/uL (4.8-10.8)
[2018-08-11 09:20] LABS: BUN Creatinine Ratio 14.1 (10-20); Calcium 8.5 mg/dl (8.5-10.1); Creatinine Clr Calc Pharmacy 89.3 ml/min; Est GFR (African American) 105.1; Est GFR (Non-African American) 90.7; Potassium 3.9 mmol/L (3.5-5.1)
--- NOTE | 2018-08-11 09:42 | Cardiology Progress Note ---
Date of Service August 11, 2018 no cp. Mild SOB at rest. + nausea at times and palps. No CP or pressure Tearful and upset over dx, expected Long discussion approx 20 minutes of risk and benefit of sx and what to expect during and recovery Gave him risk and hope and understanding that he will recover and be functional Rest of the complete ROS Negative Physical Exam 2 Vital Signs (Past 24 Hours): Last Vital Signs Temp 37.0 C 08/11/18 07:22 Pulse 96 H 08/11/18 07:22 Resp 16 08/11/18 07:22 BP 109/73 08/11/18 07:22 Pulse Ox 93 08/11/18 07:22 PHYSICAL EXAMINATION: HEENT: 1+ carotid upstrokes. No carotid bruits. Venous pressure appeared normal. Sclerae is anicteric. Hearing is normal. LUNGS: Respirations bilaterally. No rales, rhonchi or wheezing. HEART: Irregular rate and rhythm with a harsh holosystolic murmur 3/6 at the apex. ABDOMEN: Soft, nontender, nondistended. Positive bowel sounds. EXTREMITIES: No clubbing, cyanosis, or edema. PSYCHIATRIC: His affect appeared appropriate. NEUROLOGIC: He is awake, alert and oriented x3. Findings: LM -50% eccentric distal left main stenosis just prior to bifurcation LAD -moderate caliber vessel, mild diffuse proximal disease, distal luminal irregularities as tapers to apex. Gives off 2 moderate caliber diagonals without significant disease Circumflex -small to moderate caliber vessel, 90% ostial stenosis, diffuse mild to moderate mid segment disease prior to OM 2 RCA -large caliber vessel, dominant, mid segment luminal irregularities, 50-60% distal stenosis at bifurcation of right PDA, right PLB. FFR of left main Left main cannulated with JL 3.5 guide Straight FFR wire placed into mid LAD iFR 0.87 Post procedure no coronary complications FFR of distal RCA RCA cannulated with JR4 guide Straight FFR wire placed into right PDA iFR 0.94 Post procedure no coronary complications RA 3 RV 30/4 PA 29/13 (21) PAWP 9 (V waves to 27) LV 4 PaSat 61% AoSat 91% Ibeth CO/CI 4.5/2.2 Thermo CO/CI 4.8/2.4 Arterial Closure: TR Summary: 1. Severe multivessel coronary artery disease -50% eccentric distal left main (hemodynamic significant by iFR 0.87). -90% ostial circumflex 50-60% distal RCA (nonobstructive by iFR 0.94). 2. Normal left and right-sided filling pressures. 3. Normal pulmonary artery pressures. 4. Preserved cardiac output. 5. Severe mitral regurgitation by echocardiogram IMPRESSION: 1. New onset atrial fibrillation with rapid ventricular response. 2. Newly-diagnosed mitral valve prolapse, predominantly involving the P2 segment with severe eccentric mitral regurgitation. 3. Normal left ventricular systolic function with an ejection fraction in the range of 60%, but not hyperdynamic as one would expect with severe mitral regurgitation. 4. Severe left atrial enlargement. 5. CHADS2-VASc score of 2, that being hypertension and CAD 6. Severe LM disease and Prox 90% cx D/w Dr Sams yesterday Needs MV Repair, 2 V Cabg and MAZE procedure d/w [place] [facility] [place] Start Heparin drip Cont BB--rates controlled in Afib Change lipitor to crestor 40mg daily ASA 81mg daily D/w Dr Jackson [place] [facility] [place] physician .
[2018-08-11] MEDS ORDERED: Heparin IV Low Dose WITH Bolus IV ONE (09:52)
[2018-08-11] MEDS ORDERED: HEPARIN LOW DOSE DEXTROSE 25,000 UNITS/500 ML IV SCH (10:01)
[2018-08-11] MEDS ORDERED: HEPARIN IV BOLUS 4,000 UNITS in SYRINGE 0 ML IV ONE (10:30)
[2018-08-11 10:53] LABS: INR 1.1 (0.9-1.1); Partial Thromboplastin Time 26.4 Seconds (21.0-31.0); Prothrombin Time 10.8 Seconds (9.0-12.0)
[2018-08-11] MEDS ORDERED: METOPROLOL TARTRATE 1 MG/ML VIAL IV STA (16:15)
[2018-08-11 16:58] LABS: Partial Thromboplastin Ratio 1.3; Partial Thromboplastin Time 36.2 Seconds (21.0-31.0)
[2018-08-11] MEDS ORDERED: MoRPHine SULFATE 4 MG/ML 1 ML CARP\\VIAL IV STA (17:51)
[2018-08-11] MEDS ORDERED: MoRPHine SULFATE 4 MG/ML 1 ML CARP\\VIAL ONE (17:55)
[2018-08-11] MEDS ORDERED: NITROGLYCERIN SL 0.4 MG/TAB TAB SL STA (18:02)
[2018-08-11] MEDS ORDERED: HEPARIN IV BOLUS 4,500 UNITS in SYRINGE 0 ML IV ONE (18:15)
[2018-08-11] MEDS ORDERED: METOPROLOL TARTRATE 50 MG TAB PO SCH (21:00)
--- NOTE | 2018-08-11 22:01 | Discharge Summary ---
Date of Service August 11, 2018 Admission HPI Per Admitting Provider 58 yo male with history of HTN and dyslipdemia, presented to the ED c/o heart palpitations, mild chest discomfort, diaphoresis and feeling flushed. He says that he was sitting watching television when he developed the above symptoms. He reports that he has felt palpitations intermittently for the past few weeks. He saw his PCP in the office, EKG showed normal sinus rhythm. He was set up with an event monitor for a few weeks, echocardiogram ordered and he is supposed to have cardiology consultation on Friday with Dr. Rachel. He says that while wearing the monitor he has pushed the button several times when he felt like he was having palpitations. He said that Dr. Vogt, his PCP, started him on Lisinopril 20mg daily and Lipitor 20mg daily two weeks ago. He said that he has not been great at taking the medications every day, he has never needed to take medications in his life. He says that for the past two weeks he has felt worse in general. 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 Prior to the past two weeks he has never had chest pain or pressure. He had a stress test many years ago that was normal. When his symptoms of chest pressure, palpitations, sweats and flushing got worse he decided to come to the ED. On the monitor he was in afib with rates in the 140's. Given bolus of cardizem and started on drip, HR down into the 70- 80's, still in atrial fibrillation. CBC and BMP unremarkable. He now feels better. Patient has a family history of a sister who dropped from a heart attack at age 58, one year younger than he is now. She smoked and had elevated cholesterol and was not as fit as him, but it still worries him. He had an uncle on his father's side who from [place] at age 60. His mother from cancer. His father in an MVA when he was younger. Admission Exam Per Admitting Provider Constitutional: WD/WN, vitals as above Eyes: PERRL, conjunctivae normal, anicteric sclerae ENMT: external ear and nose normal, oropharynx normal Neck: trachea midline, no thyromegaly Respiratory: normal respiratory effort, lungs clear to auscultation Cardiovascular: Rate/Rhythm: regular rate; + abnormal rhythm (irregular irregular) Heart Sounds: normal S1 and + murmur (soft, systolic, heard best at apex); + abnormal S2 (crisp, almost like a click) Palpation: normal PMI Vessels: normal peripheral pulses; no JVD Extremities: no pedal edema Gastrointestinal (Abdomen): normal bowel sounds, soft, nontender, no hepatosplenomegaly Musculoskeletal: no cyanosis or clubbing, extremities motor strength 5/5 Skin: no rashes, warm and dry Neurologic: patellar DTR's 2+ bilat, sensation intact and PERRL, EOMI, accommodation nl, no face palsy, no dysarthria Psychiatric: A+Ox3, euthymic affect Lymphatic: no cervical or axillary lymphadenopathy Principal Diagnosis Severe mitral regurgitation Discharge Exam Constitutional WD/WN, vitals as above Eyes PERRL, conjunctivae normal, anicteric sclerae ENMT external ear and nose normal, oropharynx normal Neck trachea midline, no thyromegaly Respiratory normal respiratory effort, lungs clear to auscultation Cardiovascular Rate/Rhythm: + tachycardic (100's at rest); + abnormal rhythm (irregular irregular) Heart Sounds: normal S1 and + murmur (soft, systolic, heard best at apex); + abnormal S2 (crisp, almost like a click) Palpation: normal PMI Vessels: normal peripheral pulses; no JVD Extremities: no pedal edema Gastrointestinal (Abdomen) normal bowel sounds, soft, nontender, no hepatosplenomegaly Musculoskeletal no cyanosis or clubbing, extremities motor strength 5/5 Skin no rashes, warm and dry Neurologic patellar DTR's 2+ bilat, sensation intact and PERRL, EOMI, accommodation nl, no face palsy, no dysarthria Psychiatric A+Ox3, euthymic affect Lymphatic no cervical or axillary lymphadenopathy Discharge Data Allergies Allergy/AdvReac Type Severity Reaction Status Date / Time No Known Allergies Allergy Mild NONE Unverified 08/09/18 15:33 Consultations 08/09/18 17:30 ED Decision to Admit Stat 08/09/18 19:15 Consult Cardiology Routine 08/10/18 09:16 Consult Cardiac Catheterization Routine Procedures Performed Operation Date: 08/10/18 14:00 Actual Procedures p Cath, Right and Left Heart - Ike Sams MD s Cineradiography w/Routine Exam - Ike Sams MD s Fraction Flow [place] WILLY Sams MD s Fraction Flow [place] Addl Marcel Sams MD Ordered Studies 08/10/18 14:48 CL Cath Imgs for PACS use only Routine Hospital Course (1) Severe mitral regurgitation: likely posterior leaf issue defer JOSE here at [facility], plan for JOSE at [facility] prior to repair vs replacement transfer to [facility] for definitive treatment (2) Atrial fibrillation with rapid ventricular response: new onset of intense symptoms, occurred about 2 hours prior to presentation however, has recent history of palpitations and irregular heart beat was being worked up as outpatient, was wearing monitor which showed short runs of atrial fibrillation afib caused by left atrial dilation from severe mitral regurgitation rates controlled on diltiazem drip on admission converted to metoprolol 25mg TID on 08/10 rates 80-90 at rest today, up to 100 with exertion increase metoprolol to 50mg BID no need for anticoagulation since CHADS score 1, continue on aspirin (3) CAD (coronary artery disease): disease in RCA, circumflex, left main heart cath on 08/10, disc with pictures to be sent to [facility] continue aspirin and Lipitor experiencing unstable angina today, chest pain, diaphoresis, dyspnea with minimal exertion just walking to bathroom made his symptomatic relieved with Morpine IV and nitro SL vitals stable, EKG did not show STEMI or ischemia Dr. Rachel discussed with [facility], will transfer patient tonight, needs CABG and mitral valve repair this week (4) HTN (hypertension): continue Metoprolol 50mg BID previously taking Lisinopril 20mg daily, this will be stopped (5) Dyslipidemia: continue Lipitor 40mg daily Total Time Total Time Spent Total Time Spent (In Minutes): 50 minutes Total Time Includes: Examination of the Patient, Discharge Planning, Medication Reconciliation and Communication With Other Providers (Dr. Rachel, [facility] cardiothoracic surgery) Discharge Plan Discharge Items Patient Disposition: Transfer Acute Care Hospital Reason For Visit: ATRIAL FIBRILLATION WITH RVR Discharge Diagnosis: Multivessel CAD including left main disease, severe mitral regurgitation, new onset atrial fibrillation Condition: Fair Discharge Goals: Improve function and Therapeutic intervention Specific Goals: CABG, mitral valve repair/replace Activity: As commented below Activity Comment: bedrest with bathroom priveleges Lifting: None Bathing: No limitations Sexual Activity: Wait until after follow-up appointment Exercise/Sports: Wait until after follow-up appointment Driving/Machine Use: No limitations Non-emergency contact: Surgeon and Dietary Director Call non-emergency contact if: you have any medication questions and your symptoms worsen Diet: Heart Healthy Addtl Provider Instructions: Transfer to [facility] for evaluation by cardiothoracic surgery Prescriptions: New rosuvastatin [Crestor] 20 mg Tablet 40 mg PO QAM Qty: 60 RF: 3 metoprolol tartrate 25 mg Tablet 25 mg PO TID 30 Days Qty: 90 RF: 0 Continue aspirin [Aspir-81] 81 mg Tablet,Delayed Release (Dr/Ec) 81 mg PO DAILY RF: 0 Discontinued atorvastatin 20 mg tablet 20 mg PO DAILY RF: 0 lisinopril 20 mg tablet 20 mg PO DAILY RF: 0 Stand-Alone Forms: [facility] Discharge Orders: Discharge Order (Routine); Ordered 08/11/18 Ordered By: Noman Wing Admission Data Admit Date/Time: 08/09/18 17:58 Attending Provider: Noman Wing Admit Provider: Noman Wing Primary Care Provider: Fabricio Vogt Other Providers: Noman Wing ; Ace Rachel ; Ike Sams Service: Telemetry Other Interventions: Discharge Summary Assessment (RN) Last Done: 08/11/18 20:04
[2018-08-11] MEDS: ONDANSETRON INJ 2 MG/ML 2 ML VIAL IV PRN (23:27)
[2018-08-12] MEDS ORDERED: ROSUVASTATIN CALCIUM 20 MG TAB PO SCH (09:00)
== END 2018-08-11 23:59 | disposition short-term general hospital (02) | DRG 287 ==
LOC: ED 15:14 → 2S 17:58

== ENCOUNTER 2018-08-17 16:45 | Observation (INO) ==
[2018-08-17 17:34] LABS: Basophils # (auto) 0.02 K/uL (0-0.2); Basophils % (auto) 0.2 %; Eosinophils # (auto) 0.37 K/uL (0-0.5); Eosinophils % (auto) 3.7 %; Hematocrit (blood only) 33.8 % (42-52); Hemoglobin 11.5 g/dL (14.0-18.0); Immature Granulocytes # (auto) 0.04 K/uL (0.00-0.02); Immature Granulocytes % (auto) 0.4 %; Lymphocytes # (auto) 1.44 K/uL (1.2-3.4); Lymphocytes % (auto) 14.4 %; Mean Platelet Volume 9.5 fL (7.4-10.4); Monocytes # (auto) 0.76 K/uL (0.11-0.59); Monocytes % (auto) 7.6 %; Neutrophils # (auto) 7.35 K/uL (1.4-6.5); Neutrophils % (auto) 73.7 %; Platelet Count 266 K/uL (130-400); RDW Coefficient of Variation 13.7 % (11.5-14.5); RDW Standard Deviation 42.9 fL (36.4-46.3); Red Blood Count 3.93 M/uL (4.7-6.1); White Blood Count 9.98 K/uL (4.8-10.8)
--- NOTE | 2018-08-17 17:54 | XRay Report ---
XR chest 1V portable HISTORY: 58 years-old Male Chest Pain acute atypical chest pain COMPARISON: Chest radiograph to 03/10/2017 TECHNIQUE: Portable AP view the chest FINDINGS: Cardiac silhouette is mildly enlarged. Interval median sternotomy with placement of a cardiac valvula r prosthesis. No pneumothorax. Trace left and small to moderate right pleural effusions with right ba silar opacities. Degenerative changes of the shoulders and spine. IMPRESSION: 1. Cardiomegaly without overt pulmonary edema. 2. Trace left and small to moderate right pleural effusions with right basilar opacities suggestive o f atelectasis or pneumonitis. The above report was generated using voice recognition software. It may contain grammatical, syntax o r spelling errors. Electronically signed by: Christian Garcia M.D. 08/17/2018 5:53 PM
[2018-08-17] MEDS ORDERED: ASPIRIN 81 MG ECTAB PO STA (17:58)
[2018-08-17] MEDS ORDERED: ASPIRIN CHEW 324 MG PO STA (18:01)
[2018-08-17 18:14] LABS: Albumin Level 2.9 gm/dl (3.4-5.0); BUN Creatinine Ratio 14.3 (10-20); Calcium 8.3 mg/dl (8.5-10.1); Creatinine Clr Calc Pharmacy 90.2 ml/min; Est GFR (African American) 106.5; Est GFR (Non-African American) 91.9; Potassium 3.7 mmol/L (3.5-5.1)
--- NOTE | 2018-08-17 18:16 | Emergency Department Note ---
ED Visit Note I assisted in the care of this patient with Dr. Obando . Resident Activity Tracking Resident Involvement: Resident Care Provided Care Provided: Adult ED
[2018-08-17 18:28] LABS: Albumin Globulin Ratio 0.7 (0.9-2); Bilirubin,Total 0.4 mg/dl (0.2-1); Globulin 4.1 gm/dl (2.5-4.0); Troponin I 0.815 ng/ml (0-0.045)
--- NOTE | 2018-08-17 20:51 | History & Physical Report ---
Date of Service August 17, 2018 Assessment & Plan (1) Chest pain: Mr. Sears is a 58 year old male with a history of CAD s/p CABG x2 on 08/12/2018, severe mitral regurgitation s/p repair, atrial fibrillation s/p Maze procedure and excision of left atrial appendage who presents to the ED with jacob st pain, and numbness and tingling in his left hand. -Admit to telemetry -patient just discharged from [facility] today after having undergone a CABG x2, mitral valve repair, and Maze procedure on 08/12 -Troponin in the emergency department elevated at 0.815, however upon review of records from [facility], troponin was 1.16 on 08/13 - Likely downtrending from recent surgery, as opposed to new ischemic event -Trend troponins every 6 hours -Patient reported chest pain had resolved at the time of my examination -Recheck EKG in the morning -Home oxycodone continued for post-surgical pain. Acetaminophen 650 mg p.o. also ordered for pain Hospital Acquired Pneumonia -Patient found to have right infiltrate noted on chest x-ray -Blood cultures x2 ordered, and patient was started on Zosyn and vancomycin for a hospital-acquired pneumonia -MRSA swab ordered -Incentive spirometry ordered Elevated LFTs -AST elevated at 104, alk phos elevated at 149. ALT normal at 71. Upon review of records from [facility], patient did not have elevated LFTs prior to discharge -ddx: hepatic congestion after recent open heart surgery, medication related (pt recently started on amiodarone), alcohol induced -Patient denies recent alcohol use -Recheck LFTs tomorrow Atrial Fibrillation -s/p Maze procedure -patient in sinus rhythm upon presentation to [facility] Paresthesis of Left Hand -Likely related to median nerve irritation from inflammation in the left wrist, as patient had arterial line placed there, and does have some residual bruising and swelling. Paresthesias are in first 3 digits, following median nerve distribution. This was likely exacerbated by the patient resting his arm on a arm rest while sleeping. -Phalen's and Tinel's test negative, continue to monitor. Symptoms were already improving by the time of my examination CAD -s/p CABG x2 -Continue aspirin, amiodarone, atorvastatin and metoprolol Pleural effusion -Patient was told at [facility] to take furosemide x1 week after discharge for his bilateral pleural effusions -Chest x-ray here revealed trace left and small to moderate right pleural effusion -Continue furosemide, and potassium supplementation CODE STATUS: Full DVT prophylaxis: Patient ambulatory Disposition: Admit to telemetry F/E/N: Heart healthy diet. No electrolyte abnormalities noted. No IV fluids ordered. (2) Atrial fibrillation with rapid ventricular response: (3) Severe mitral regurgitation: (4) Pneumonia: (5) Numbness and tingling in left hand: (6) Elevated LFTs: History of Present Illness Primary Care Provider: Fabricio Vogt DO Mr. Sears is a 58 year old male with a history of CAD s/p CABG x2 on 08/12/2018, severe mitral regurgitation s/p repair, atrial fibrillation s/p Maze procedure and excision of left atrial appendage who presents to the ED with chest pain, and numbness and tingling in his left hand. The patient reports that he was discharged from [facility] at 1 PM today. He was on his way home, when he and his stopped to have a meal. He states that he had a salad, and that this was the largest meal that he has had since prior to his hospital admission. When he went back to his car after the meal, he opened his car door, and noted pain in his chest almost immediately after that. He was able to fall asleep for 45 minutes in the car, on his way home. He fell asleep with his right wrist resting over the arm rest. When he awoke, he noted his chest discomfort remained, and that his first 3 fingers were numb. When he got home, he states that he "did not feel well" and felt nauseous. He went to lay down, however noted his nausea persisted and he became aware of his heartbeat. He denies palpitations. He states that he called [facility] who recommended that he come to the emergency department, here at [facility], to be evaluated further. He does endorse a dry cough. He denies any fever, chills or vomiting. Of note, he is a non-smoker, does not drink alcohol, or use recreational drugs. Allergies Allergy/AdvReac Type Severity Reaction Status Date / Time No Known Allergies Allergy Mild NONE Unverified 08/09/18 15:33 Home Medications Home Medications Medication Instructions Recorded Confirmed Type acetaminophen 1,000 mg PO Q8H 08/17/18 08/17/18 History aspirin [Aspirin Low Dose] 81 mg PO DAILY 08/17/18 08/17/18 History atorvastatin 20 mg PO HS 08/17/18 08/17/18 History furosemide 20 mg PO BID 08/17/18 08/17/18 History ibuprofen 400 mg PO Q6H PRN 08/17/18 08/17/18 History metoprolol tartrate 12.5 mg PO BID 08/17/18 08/17/18 History oxycodone 1 - 2 tab PO Q4H PRN 08/17/18 08/17/18 History potassium chloride 20 meq PO BID 08/17/18 08/17/18 History amiodarone 200 mg PO DIRECTED #0 tab 08/18/18 08/17/18 Rx Past Med/Surg History Medical History Right foot pain (Chronic) Dyslipidemia HTN (hypertension) Social History Preferred Language: Yoruba Beliefs That Will Affect Care: None Current Living Situation: Spouse Other Information That Helps Us Care for You: No Safety Concerns: Feels Safe At This Time Smoking Status: Never smoker Hx Alcohol Use: Yes Hx Substance Use: No Review of Systems Constitutional: + malaise; no fever, no chills and no anorexia Respiratory: + cough; no chest congestion, no dyspnea and no wheezing Cardiovascular: + chest pain; no palpitations, no syncope, no edema and no calf pain Gastrointestinal: + nausea; no abdominal pain and no vomiting Genitourinary (Male): no dysuria and no urinary frequency Musculoskeletal: no back pain Integumentary: no rash and no lesions Neurologic: + tingling and + numbness Physical Exam Vital Signs (Past 24 Hours): Last Vital Signs Temp 36.5 C 08/17/18 16:51 Pulse 81 08/17/18 20:00 Resp 21 08/17/18 20:00 BP 159/92 H 08/17/18 20:00 Pulse Ox 96 08/17/18 20:00 Constitutional: WD/WN, vitals as above + well hydrated, cooperative and comfortable Eyes: PERRL, conjunctivae normal, anicteric sclerae ENMT: external ear and nose normal, oropharynx normal Respiratory: normal respiratory effort, lungs clear to auscultation Cardiovascular: RRR, no murmur, no edema Extremities: normal capillary refill; no calf tenderness and no pedal edema Gastrointestinal (Abdomen): normal bowel sounds, soft, nontender, no hepatosplenomegaly Musculoskeletal: 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 Sensation intact over hand. Bruising noted over left forearm, where patient states his arterial line was. Negative Tinel's and Phalen's test. Skin: no rashes, warm and dry Psychiatric: A+Ox3, euthymic affect Supervising Physician Co-Signing Physician Notes Attending addendum: I have physically seen this patient, have supervised the medical residents activities, and agree with the H&P unless as otherwise noted. Assessment and Plan: Chest pain/CAD/recent CABG x2/severe MR status post repair/atrial fibrillation status post maze procedure and left atrial appendage excision-- The patient will be admitted to telemetry for serial cardiac enzymes, serial EKG's, cardiac rhythm monitoring and a 2-D echocardiogram with Dopplers. Troponin of 0.815, is lower than most recent of 1.16 on 08/13/18. We will consult cardiology Dr. López to see, since he had a complicated group of procedures performed. Remainder of orders and notations as noted. Resident Activity Tracking Resident Involvement: Resident Care Provided Care Provided: Adult Hospital Medicine
[2018-08-17] MEDS ORDERED: OXYCODONE HCL IR 5 MG TAB (IMMEDIATE RELEASE) PO PRN (21:43)
[2018-08-17] MEDS ORDERED: VANCOMYCIN CONSULT ACTIVE PRN (21:43)
[2018-08-17] MEDS ORDERED: PIPERACILL/TAZOBAC CONSULT ACTIVE PRN (21:43)
[2018-08-17] MEDS ORDERED: VANCOMYCIN HCL 2,000 MG in SODIUM CHLORIDE 0.9% 500 ML IV ONE (22:30)
[2018-08-17] MEDS ORDERED: PIPERACILLIN/TAZOBACTAM 3.375 GM in DEXTROSE 5% 100 ML IV ONE (22:30)
[2018-08-17] MEDS: POTASSIUM CHLORIDE 20 MEQ TABCR PO SCH (22:34)
[2018-08-17] MEDS: METOPROLOL TARTRATE 25 MG TAB PO SCH (22:34)
[2018-08-17] MEDS ORDERED: ACETAMINOPHEN 500 MG TAB PO SCH (23:00)
[2018-08-17] MEDS ORDERED: ATORVASTATIN 20 MG TAB PO SCH (23:00)
--- NOTE | 2018-08-17 23:21 | Pharmacy Report ---
Pharmacy Abx Initial Consult - Date of Service August 17, 2018 - Pharmacy Dosing Scope Date of Consult: 08/17/18 Consultation requested by: Dr. Price Pharmacy is consulted to initiate vancomycin and Zosyn IV dosing therapy, order appropriate labs and adjust drug dose/frequency. - Subjective The patient is a 58 year old M admitted on 08/17/18 20:32. - Objective Height: 5 ft 10 in Weight: 74.3 kg Vital Signs (Past 12hrs): Vital Signs Temp Pulse Pulse Resp BP BP Pulse Ox 08/17/18 21:45 88 08/17/18 21:00 80 21 132/84 96 08/17/18 20:30 79 19 143/83 H 97 08/17/18 20:00 81 21 159/92 H 96 08/17/18 19:00 78 22 146/81 H 97 08/17/18 18:57 80 18 123/77 99 08/17/18 18:30 78 22 123/77 96 08/17/18 18:09 95 08/17/18 18:08 95 08/17/18 18:00 83 21 126/82 97 08/17/18 17:30 81 21 117/78 94 08/17/18 17:26 81 18 125/75 94 08/17/18 17:14 79 18 128/70 94 08/17/18 16:51 36.5 C 85 18 122/74 98 Lab Results (24hrs): Laboratory Tests (24 Hours) 08/17/18 08/17/18 17:07 17:07 WBC 9.98 Neut # (Auto) 7.35 H Creatinine 0.91 Est Cr Clr Drug Dosing 90.2 Micro Results: 08/17/18 22:12 Blood Culture - Pending Blood 08/17/18 22:05 Blood Culture - Pending Blood - Risk Factors for Resistance * Hospitalization for 48 hours or more within the past 90 days - Assessment & Plan Assessment 58 year old M recently discharged from [facility] s/p CABG x 2 who presents with chest pain and numbness. Possible pneumonia. Plan vancomycin/Zosyn for treatment of possible pulmonary infection Vancomycin IV * Estimated PK Parameters: Vd 0.7 L/kg, Dominic 0.08 hr-1, t1/2 8.6 hr * Loading dose: 2000 mg (25 mg/kg) * Maintenance dose: 1250 mg IV (17 mg/kg) every 12 hours * Goal trough level for pulmonary infection : 15 to 20 mcg/mL * Trough ordered for 08/19/18 prior to 10 am dose Piperacillin/tazobactam * 3.375 g bolus administered over 30 minutes, then 3.375 g IV extended infusion every 8 hours for CrCl greater than 20 mL/min Pharmacy will continue to follow and will adjust dose/frequency as necessary. Thank you.
--- NOTE | 2018-08-17 23:30 | Emergency Department Note ---
Entered by Ashley Esparza acting as a scribe for History of Present Illness General Chief complaint: Cardiac Assessment Stated complaint: CHEST PRESSURE AND NUMB FINGERS Time Seen by Provider: 08/17/18 17:11 Source: patient History of Present Illness Onset (ago): hour(s) (1300 today) Location: chest Pain Consistency: + constant (dull achiness and soreness), + intermittent (first three digit numbness) and + other (after having a CABG, mitral valve repair, removal of his left atrial appendage, and a MAZE procedure done at [facility] 5 days ago) Maximum Pain Intensity: 5 Quality: + other (cardiac assessment, constant dull achiness and soreness after 4 second episode of sharp, stabbing chest pain) Associated symptoms: + other (Positive intermittent numbness in his first three digits, heart racing, nausea. ); no shortness of breath The patient is a 58 year old male who presents to the Emergency Room for a cardiac assessment beginning around 1300 today. He states he was at the ED 6 days ago for chest pain and was transferred to [facility] where he had a CABG, mitral valve repair, removal of his left atrial appendage, and a MAZE procedure 5 days ago and was discharged today. While driving home at 1300, he went to a restaurant and ate a large meal. After eating, he reached to open the car door with his left hand and he suddenly felt a sharp, stabbing pain in his chest whi ch lasted about 4 seconds. Since then, he has had a constant dull achiness and soreness in his chest. He reports he then took a 40 minute nap and when he woke up, his first three digits were numb, and this numbness has been intermittent since. When he arrived home, he lied down on the couch and felt like his heart was racing, so he called [facility] who recommended he go to the ED. Pt has nausea but denies any SOB. He states this does not feel similar to his symptoms 1 week ago but the pain is located in the same spot. Home Medications Home Medications Medication Instructions Recorded Confirmed Type acetaminophen 1,000 mg PO Q8H 08/17/18 08/17/18 History amiodarone 200 mg PO DIRECTED 08/17/18 08/17/18 History aspirin [Aspirin Low Dose] 81 mg PO DAILY 08/17/18 08/17/18 History atorvastatin 20 mg PO HS 08/17/18 08/17/18 History furosemide 20 mg PO BID 08/17/18 08/17/18 History ibuprofen 400 mg PO Q6H PRN 08/17/18 08/17/18 History metoprolol tartrate 12.5 mg PO BID 08/17/18 08/17/18 History oxycodone 1 - 2 tab PO Q4H PRN 08/17/18 08/17/18 History potassium chloride 20 meq PO BID 08/17/18 08/17/18 History Allergies Allergy/AdvReac Type Severity Reaction Status Date / Time No Known Allergies Allergy Mild NONE Unverified 08/09/18 15:33 Past Med/Surg History Medical History Right foot pain (Chronic) Dyslipidemia HTN (hypertension) Social History Preferred Language: Urdu Beliefs That Will Affect Care: None Current Living Situation: Spouse Feels Safe at Home: Yes Smoking Status: Never smoker Hx Alcohol Use: Yes Hx Substance Use: No Review of Systems See HPI for pertinent positives & negatives. and A total of 10 systems reviewed and were otherwise negative Physical Exam Vital Signs Vital Signs - 24 hr 08/17/18 16:51 08/17/18 17:14 08/17/18 17:26 Temperature 36.5 C Temperature Source Oral Sepsis Recent Fever Within 48 Hours No Sepsis New/Unexplained Change in Mental Status No Sepsis Action Taken by Nursing No Action Required Pulse Rate 85 81 Pulse Rate [Right Finger] 79 Pulse Rate from SpO2 Sensor 81 Respiratory Rate 18 18 18 Respiratory Effort / Characteristics Non-Labored Spontaneous Respiratory Depth Normal Blood Pressure 122/74 125/75 Blood Pressure [Left Arm] 128/70 Blood Pressure Mean 90 91 Blood Pressure Mean [Left Arm] 89 Pulse Oximetry 98 94 94 Oxygen Delivery Method Room Air Room Air 08/17/18 17:30 08/17/18 18:00 08/17/18 18:08 Temperature Temperature Source Sepsis Recent Fever Within 48 Hours Sepsis New/Unexplained Change in Mental Status Sepsis Action Taken by Nursing Pulse Rate 81 83 Pulse Rate [Right Finger] Pulse Rate from SpO2 Sensor 81 83 Respiratory Rate 21 21 Respiratory Effort / Characteristics Respiratory Depth Blood Pressure 117/78 126/82 Blood Pressure [Left Arm] Blood Pressure Mean 91 96 Blood Pressure Mean [Left Arm] Pulse Oximetry 94 97 95 Oxygen Delivery Method Room Air Room Air Room Air 08/17/18 18:09 08/17/18 18:30 08/17/18 18:57 Temperature Temperature Source Sepsis Recent Fever Within 48 Hours Sepsis New/Unexplained Change in Mental Status Sepsis Action Taken by Nursing Pulse Rate 78 Pulse Rate [Right Finger] 80 Pulse Rate from SpO2 Sensor 78 Respiratory Rate 22 18 Respiratory Effort / Characteristics Respiratory Depth Blood Pressure 123/77 Blood Pressure [Left Arm] 123/77 Blood Pressure Mean 92 Blood Pressure Mean [Left Arm] 92 Pulse Oximetry 95 96 99 Oxygen Delivery Method Room Air Room Air 08/17/18 19:00 08/17/18 20:00 08/17/18 20:30 Temperature Temperature Source Sepsis Recent Fever Within 48 Hours Sepsis New/Unexplained Change in Mental Status Sepsis Action Taken by Nursing Pulse Rate 78 81 79 Pulse Rate [Right Finger] Pulse Rate from SpO2 Sensor 78 80 78 Respiratory Rate 22 21 19 Respiratory Effort / Characteristics Respiratory Depth Blood Pressure 146/81 H 159/92 H 143/83 H Blood Pressure [Left Arm] Blood Pressure Mean 102 114 103 Blood Pressure Mean [Left Arm] Pulse Oximetry 97 96 97 Oxygen Delivery Method 08/17/18 21:00 08/17/18 21:45 Temperature Temperature Source Sepsis Recent Fever Within 48 Hours Sepsis New/Unexplained Change in Mental Status Sepsis Action Taken by Nursing Pulse Rate 80 88 Pulse Rate [Right Finger] Pulse Rate from SpO2 Sensor 80 Respiratory Rate 21 Respiratory Effort / Characteristics Respiratory Depth Blood Pressure 132/84 Blood Pressure [Left Arm] Blood Pressure Mean 100 Blood Pressure Mean [Left Arm] Pulse Oximetry 96 Oxygen Delivery Method GENERAL: Sitting up in bed, alert, well appearing, well nourished, no distress, non-toxic EYE EXAM: normal conjunctiva. OROPHARYNX: no exudate, no erythema, lips, buccal mucosa, and tongue normal and mucous membranes are moist NECK: supple, no nuchal rigidity, no adenopathy, non-tender LUNGS: Clear to auscultation. Normal chest wall mechanics CHEST: sternotomy incision covered with dressing. Eraser sized area of blood present HEART: no murmurs, S1 normal and S2 normal ABDOMEN: abdomen soft, non-tender, normo-active bowel, sounds, no masses, no re bound or guarding. BACK: Back is symmetrical on inspection and there is no deformity, no midline tenderness, no CVA tenderness. SKIN: no rashes and no bruising UPPER EXTREMITIES: upper extremities are grossly normal. Radial pulses present bilaterally. Left forearm with a large amount of bruising LOWER EXTREMITIES: No pitting edema. NEURO EXAM: Normal sensorium, cranial nerves II-XII grossly intact, normal speech, no gross weakness of arms, no gross weakness of legs. Course ED COURSE: Vital signs were reviewed and showed normotensive The patients medical record was reviewed The above diagnostic studies were performed and reviewed. ED treatments and interventions as stated above. 175: The patient was evaluated in room C11. A complete history and physical examination was performed. 1899: I reviewed the patient's case with Dr. Harp. He recommends the patient be further evaluated. 1901: I reviewed the patient's case with Dr. [facility] Hospitalist . He will evaluate the patient for further management. 1904: Upon reevaluation, the patient is feeling slightly better. I discussed my findings with the patient and he understands and agrees with the treatment plan. Based on the patients age, coexisting illnesses, exam and lab findings the decision to treat as an inpatient was made. The patient remained stable while under my care. The patient will be evaluated for further management. Consultations Consultation #1: I reviewed the patient's case with Dr. Harp. He recommends the patient be further evaluated. Time: 19:00 Consultation #2: I reviewed the patient's case with Dr. [facility] Hospitalist . He will evaluate the patient for further management. Time: 19:02 Administered Medications Acetaminophen (Tylenol) 1,000 mg PO Q8 [facility] Stop: 09/16/18 22:59 Last Admin: 08/17/18 22:34 Dose: Not Given Documented by: [id number] Atorvastatin Calcium (Lipitor) 20 mg PO HS [facility] Stop: 09/16/18 22:59 Last Admin: 08/17/18 22:34 Dose: 20 mg Documented by: [id number] Vancomycin HCl 2,000 mg/ (Sodium Chloride) 540 mls @ 200 mls/hr IV NOW ONE Stop: 08/18/18 01:11 Last Admin: 08/17/18 22:23 Dose: 200 mls/hr Documented by: [id number] Metoprolol Tartrate (Lopressor) 12.5 mg PO BID [facility] Stop: 09/16/18 22:59 Last Admin: 08/17/18 22:34 Dose: 12.5 mg Documented by: [id number] Potassium Chloride (Klor-Con M20) 20 meq PO BID [facility] Stop: 09/16/18 22:59 Last Admin: 08/17/18 22:34 Dose: 20 meq Documented by: [id number] Discontinued Medications Aspirin (Ecotrin Ectab) 243 mg PO NOW STA Stop: 08/17/18 17:59 Last Admin: 08/17/18 18:06 Dose: Not Given Documented by: [id number] Aspirin (Aspirin) 243 mg PO NOW STA Stop: 08/17/18 18:02 Last Admin: 08/17/18 18:06 Dose: 243 mg Documented by: [id number] Piperacillin Sod/Tazobactam (Sod 3.375 gm/ Dextrose) 115 mls @ 230 mls/hr IV NOW ONE Stop: 08/17/18 22:59 Last Infusion: 08/17/18 22:57 Dose: 0 mls/hr Documented by: [id number] Admin: 08/17/18 22:23 Dose: 230 mls/hr Documented by: [id number] Medical Decision Making Differential Diagnosis Differential diagnoses includes but is not limited to acute coronary syndrome, myocardial infarction, pericarditis, pulmonary embolus, aortic dissection, pneumonia, pneumothorax, musculoskeletal, shingles, esophageal. Medical Records Attestation: I reviewed the patient's medical records. Home Medications Current Medication List: was personally reviewed by me Laboratory Data Attestation: I reviewed the patient's lab results. Result diagrams: 08/17/18 17:07 08/17/18 17:07 Lab Results 08/17/18 08/17/18 Range/Units 17:07 17:07 WBC 9.98 (4.8-10.8) K/uL RBC 3.93 L (4.7-6.1) M/uL Hgb 11.5 L (14.0-18.0) g/dL Hct 33.8 L (42-52) % MCV 86.0 (80-100) fL MCH 29.3 (25-34) pg MCHC 34.0 (32-36) g/dL RDW Std Deviation 42.9 (36.4-46.3) fL RDW Coeff of Andrew 13.7 (11.5-14.5) % Plt Count 266 (130-400) K/uL MPV 9.5 (7.4-10.4) fL Immature Gran % (Auto) 0.4 % Neut % (Auto) 73.7 % Lymph % (Auto) 14.4 % Rich % (Auto) 7.6 % Eos % (Auto) 3.7 % Baso % (Auto) 0.2 % Immature Gran # (Auto) 0.04 H (0.00-0.02) K/uL Neut # (Auto) 7.35 H (1.4-6.5) K/uL Lymph # (Auto) 1.44 (1.2-3.4) K/uL Rich # (Auto) 0.76 H (0.11-0.59) K/uL Eos # (Auto) 0.37 (0-0.5) K/uL Baso # (Auto) 0.02 (0-0.2) K/uL Sodium 137 (136-145) mmol/L Potassium 3.7 (3.5-5.1) mmol/L Chloride 105 (98-107) mmol/L Carbon Dioxide 24 (21-32) mmol/L Anion Gap 8.0 (3-11) BUN 13 (7-18) mg/dl Creatinine 0.91 (0.6-1.4) mg/dl Est Cr Clr Drug Dosing 90.2 ml/min Est GFR ( Amer) 106.5 Est GFR (Non-Af Amer) 91.9 BUN/Creatinine Ratio 14.3 (10-20) Glucose 127 H (70-99) mg/dl Calcium 8.3 L (8.5-10.1) mg/dl Total Bilirubin 0.4 (0.2-1) mg/dl AST 104 H (15-37) U/L ALT 71 (12-78) U/L Alkaline Phosphatase 149 H (45-117) U/L Troponin I 0.815 H* (0-0.045) ng/ml Total Protein 7.0 (6.4-8.2) gm/dl Albumin 2.9 L (3.4-5.0) gm/dl Globulin 4.1 H (2.5-4.0) gm/dl Albumin/Globulin Ratio 0.7 L (0.9-2) Lipase 123 (73-393) U/L Imaging Data Radiologist's Impression: Radiology results as stated below per my review and the radiologist's interpretation: XR chest 1V portable HISTORY: 58 years-old Male Chest Pain acute atypical chest pain COMPARISON: Chest radiograph to 03/10/2017 TECHNIQUE: Portable AP view the chest FINDINGS: Cardiac silhouette is mildly enlarged. Interval median sternotomy with placement of a cardiac valvular prosthesis. No pneumothorax. Trace left and small to moderate right pleural effusions with right basilar opacities. Degenerative changes of the shoulders and spine. IMPRESSION: 1. Cardiomegaly without overt pulmonary edema. 2. Trace left and small to moderate right pleural effusions with right basilar opacities suggestive of atelectasis or pneumonitis. The above report was generated using voice recognition software. It may contain grammatical, syntax or spelling errors. Electronically signed by: Christian Garcia M.D. 08/17/2018 5:53 PM ECG Data Attestation: I personally reviewed and interpreted this ECG as follows: Indication: chest pain Rate (beats per minute): 82 Rhythm: sinus rhythm Findings: + other (inferior T wave flattening) and + ST elevation Comparison ECG Date: from (08/11/18) Change: the following changes noted (Inferior T-wave flattening is new, no change in the high lateral, anterior ST elevation is unchanged. ) Blood Pressure Blood Pressure Findings: Normal blood pressure Blood Pressure Disposition: did not require urgent referral MDM Narrative Patient is a 58-year-old male who was recently seen here and transferred to [facility] for cardiac bypass. Patient was just discharged today and was coming home and started to have chest pain shortness of breath. IV was established and labs were obtained. EKG showed T wave flattening in the inferior leads from previous. CBC shows no significant leukocytosis or anemia. BMP is unremarkable. No significant transaminitis. Troponin was detectable at 0.8. Lipase was normal. Chest x-ray showed mild pleural effusions as expected. Patient was pain-free while in the ER. He was given aspirin. Patient was updated bedside. He was discussed with the hospitalist. Did not placed on any anticoagulation at this time as he was pain-free. Patient family were updated at bedside. He was seen independently of the resident. Impression & Plan Precordial chest pain, Non-ST elevation MO (NSTEMI) Discharge Plan Visit Data *Final* Discharge Date/Time: 08/17/18 21:13 Chief Complaint: Cardiac Assessment Stated Complaint: CHEST PRESSURE AND NUMB FINGERS ED Provider: Cam Obando ED Midlevel Provider: Edenilson Mendez Discharge Problem: Precordial chest pain, Non-ST elevation MO (NSTEMI) Patient Disposition: Admitted As Inpatient Discharge Instructions Interventions: ED Discharge Assessment Last Done: 08/17/18 21:13 The scribe's documentation has been prepared under my direction and personally reviewed by me in its entirety. I confirm that the note above accurately reflects all work, treatment, procedures, and medical decision making performed by me.
[2018-08-18] MEDS ORDERED: PIPERACILLIN/TAZOBACTAM 3.375 GM in DEXTROSE 5% 100 ML IV SCH (04:00)
[2018-08-18] MEDS ORDERED: ACETAMINOPHEN 500 MG TAB PO PRN (04:21)
[2018-08-18 05:34] LABS: Basophils # (auto) 0.02 K/uL (0-0.2); Basophils % (auto) 0.3 %; Eosinophils # (auto) 0.55 K/uL (0-0.5); Hematocrit (blood only) 30.7 % (42-52); Hemoglobin 10.2 g/dL (14.0-18.0); Immature Granulocytes # (auto) 0.04 K/uL (0.00-0.02); Immature Granulocytes % (auto) 0.5 %; Lymphocytes # (auto) 1.64 K/uL (1.2-3.4); Lymphocytes % (auto) 20.9 %; Mean Corpuscular Hgb Conc 33.2 g/dL (32-36); Mean Corpuscular Volume 85.8 fL (80-100); Mean Platelet Volume 9.3 fL (7.4-10.4); Monocytes # (auto) 0.76 K/uL (0.11-0.59); Monocytes % (auto) 9.7 %; Neutrophils # (auto) 4.84 K/uL (1.4-6.5); Neutrophils % (auto) 61.6 %; Platelet Count 255 K/uL (130-400); RDW Coefficient of Variation 13.8 % (11.5-14.5); RDW Standard Deviation 42.6 fL (36.4-46.3); Red Blood Count 3.58 M/uL (4.7-6.1); White Blood Count 7.85 K/uL (4.8-10.8)
[2018-08-18 06:06] LABS: Albumin Level 2.5 gm/dl (3.4-5.0); BUN Creatinine Ratio 15.9 (10-20); Calcium 8.2 mg/dl (8.5-10.1); Est GFR (African American) 113.9; Est GFR (Non-African American) 98.3; Potassium 3.9 mmol/L (3.5-5.1)
[2018-08-18 06:09] LABS: Albumin Globulin Ratio 0.7 (0.9-2); Bilirubin,Total 0.5 mg/dl (0.2-1); Globulin 3.5 gm/dl (2.5-4.0)
[2018-08-18] MEDS ORDERED: AMIODARONE 200 MG TAB PO SCH ×2 (09:00→21:00)
[2018-08-18] MEDS ORDERED: FUROSEMIDE 20 MG TAB PO SCH ×2 (09:00)
[2018-08-18] MEDS ORDERED: ASPIRIN 81 MG ECTAB PO SCH (09:00)
[2018-08-18] MEDS: METOPROLOL TARTRATE 25 MG TAB PO SCH (09:23)
[2018-08-18] MEDS: POTASSIUM CHLORIDE 20 MEQ TABCR PO SCH (09:23)
[2018-08-18] MEDS ORDERED: VANCOMYCIN HCL 1,250 MG in SODIUM CHLORIDE 0.9% 250 ML IV SCH (10:00)
[2018-08-18] MEDS ORDERED: AMIODARONE 200 MG TAB PO ONE (10:45)
--- NOTE | 2018-08-18 14:12 | Discharge Summary ---
Date of Service August 18, 2018 Admission HPI Per Admitting Provider Mr. Sears is a 58 year old male with a history of CAD s/p CABG x2 on 08/12/2018, severe mitral regurgitation s/p repair, atrial fibrillation s/p Maze procedure and excision of left atrial appendage who presents to the ED with chest pain, and numbness and tingling in his left hand. The patient reports that he was discharged from [facility] at 1 PM today. He was on his way home, when he and his stopped to have a meal. He states that he had a salad, and that this was the largest meal that he has had since prior to his hospital admission. When he went back to his car after the meal, he opened his car door, and noted pain in his chest almost immediately after that. He was able to fall asleep for 45 minutes in the car, on his way home. He fell asleep with his right wrist resting over the arm rest. When he awoke, he noted his chest discomfort remained, and that his first 3 fingers were numb. When he got home, he states that he "did not feel well" and felt nauseous. He went to lay down, however noted his nausea persisted and he became aware of his heartbeat. He denies palpitations. He states that he called [facility] who recommended that he come to the emergency department, here at [facility], to be evaluated further. He does endorse a dry cough. He denies any fever, chills or vomiting. Of note, he is a non-smoker, does not drink alcohol, or use recreational drugs. Principal Diagnosis Musculoskeletal chest pain, left carpal tunnel syndrome Discharge Exam Constitutional WD/WN, vitals as above Eyes PERRL, conjunctivae normal, anicteric sclerae ENMT external ear and nose normal, oropharynx normal Neck trachea midline, no thyromegaly Respiratory normal respiratory effort; no respiratory distress Auscultation: + diminished lung sounds (at bases); no crackles, no rhonchi and no wheezes Cardiovascular RRR, no murmur, no edema Chest (Breasts) Chest: + abnormal inspection of chest (midline sternotomy with dressing in place c/d/i) Gastrointestinal (Abdomen) normal bowel sounds, soft, nontender, no hepatosplenomegaly Musculoskeletal Extremities: + extremities abnormal to inspection (left ventral wrist with ecchymosis, mild edema, small scab at A-line site), no cyanosis and no clubbing Skin no rashes, warm and dry Neurologic moves all extremities and awake; no focal motor deficits Psychiatric A+Ox3, euthymic affect Discharge Data Allergies Allergy/AdvReac Type Severity Reaction Status Date / Time No Known Allergies Allergy Mild NONE Unverified 08/09/18 15:33 Consultations Cardiology Ordered Studies CXR Hospital Course (1) Chest pain: Chest pain: Mr. Sears is a 58 year old male with a history of CAD s/p CABG x2 on 08/12/2018, severe mitral regurgitation s/p repair, atrial fibrillation s/p Maze procedure and excision of left atrial appendage who presents to the ED with chest pain, and numbness and tingling in his left hand. Chest pain came on and was a sharp pain in left upper chest wall lateral to midline sternotomy site- exacerbated by pulling open his car door while car on an incline on way home from hospital (after having CABG). Pain lasted many hours and troponin was minimally elevated and actually trended downward (was higher the day prior to admission at [place]).ECGs appeared somewhat abnormal but likely due to recent surgery-reviewed with Cardiology. No events on telemetry and no further testing indicated. Stable for dc to home and can take tylenol, oxycodone, or ibuprofen as directed by [facility] provider. Ruled out Hospital Acquired Pneumonia -Patient found to have right infiltrate noted on chest x-ray--> has bilat small pleural effusions and likely atelectasis. Procalcitonin was negative, no fevers, no leukocytosis, no cough. He does not have PNA. All antibiotics started on admission were discontinued. -Blood cultures NGTD at time of discharge (2) Numbness and tingling in left hand: Was brief CTS left wrist/hand secondary to mild edema and ecchymosis from A-line with compression while sleeping in car on arm rest. Resolved (3) CAD (coronary artery disease): s/p CABG -continue ASA, statin, metoprolol (4) Severe mitral regurgitation: s/p repair on 08/12/18 (5) Atrial fibrillation with rapid ventricular response: Atrial Fibrillation-occurred during previous admission and was related to severe MR, now s/p MAZE and MV repair -patient in sinus rhythm upon presentation to [facility] -continue amiodarone 200mg bid x 6 more days then 200mg daily until seen by Cardiology -not on AC due to low CHADS2 score (6) Hx of CABG: on 08/12/18 -f/u with Surgeon as scheduled (7) Elevated LFTs: Elevated LFTs -AST elevated at 104, alk phos elevated at 149--> trended downward after admission. ALT normal at 71. Upon review of records from [facility] [place], patient did not have elevated LFTs prior to discharge -ddx: hepatic congestion after recent open heart surgery, medication related (pt recently started on amiodarone) -follow LFTs as outpt (8) Pleural effusion: Pleural effusion -small bilateral pleural effusions secondary to recent CABG -Chest x-ray here revealed trace left and small to moderate right pleural effusion -Continue furosemide, and potassium supplementation x 6 more days (9) DVT prophylaxis: SCDs Dispo-stable for dc to home Total Time Total Time Spent Total Time Spent (In Minutes): >30 min Total Time Includes: Examination of the Patient, Discharge Planning, Medication Reconciliation and Communication With Other Providers (Cardiology) Discharge Plan Discharge Items Patient Disposition: Home - Self-Care Reason For Visit: Chest pain, left hand numbness Discharge Diagnosis: Chest pain, left hand numbness Condition: Good Discharge Goals: Decrease discomfort, Diagnostic testing, Improve disease control, Learn about illness and Therapeutic intervention Activity: Resume your previous activity Lifting: None Bathing Comment: Can shower and gently pat wound Exercise/Sports: Wait until after follow-up appointment Non-emergency contact: Primary Care Provider and Utility Person Call non-emergency contact if: you have any medication questions, your symptoms worsen, your pain is not controlled, your pain is worsening, your pain is unusual for you, your pain is concerning for you, your temperature is above 101, your wound has increased redness, your wound has increased drainage and your wound pain has increased Follow-up/Referrals: Fabricio Vogt DO [Primary Care Provider] - 08/21/18 8:30 am (Please, follow up at Dr. oVgt's office with his associate, Dr. Price, on FridayAugust 21 at 8:30 am. *If you need to change this appointment, call the office at [phone].) Fragin,Ace D, DO [Physician] - (Please, follow up with Dr. Rachel. His nurse will call you to arrange this appointment. *If you have any questions, call the office at [phone].) Diet: Heart Healthy [facility] Provider Instructions: You were admitted with chest pain and left finger numbness. This was all likely due to a muscle strain of the chest and compression of a nerve in your wrist (Carpal tunnel syndrome). It all resolved and your testing was all negative for acute illness. You were given antibiotics as a precaution for pneumonia but pneumonia was then ruled out with further testing. You do NOT need any further antibiotics after discharge. Continue all your other meds as before from your discharge instructions from [facility]. Please follow up with Dr. Rachel and Dr. Vogt as scheduled for you, as well as with your Cardiothoracic Surgeon as previously scheduled. Prescriptions: Continued atorvastatin 20 mg tablet 20 mg PO HS RF: 0 aspirin [Aspirin Low Dose] 81 mg Tablet,Delayed Release (Dr/Ec) 81 mg PO DAILY RF: 0 acetaminophen 500 mg Tablet 1,000 mg PO Q8H RF: 0 potassium chloride 20 mEq tablet,ER particles/crystals 20 meq PO BID RF: 0 furosemide 20 mg tablet 20 mg PO BID RF: 0 oxycodone 5 mg tablet 1 - 2 tab PO Q4H PRN (Reason: Pain) RF: 0 metoprolol tartrate 25 mg tablet 12.5 mg PO BID RF: 0 ibuprofen 200 mg Capsule 400 mg PO Q6H PRN (Reason: Pain) RF: 0 amiodarone 200 mg tablet 200 mg PO DIRECTED Qty: 0 RF: 0 Stand-Alone Forms: [facility] Discharge Orders: Discharge Order (Routine); Ordered 08/18/18 Ordered By: Pratibha Walters Admission Data Admit Date/Time: 08/17/18 20:32 Attending Provider: Pratibha Walters Admit Provider: Diamond Price Primary Care Provider: Fabricio Vogt Other Providers: Addy Keane ; Ace Rachel Service: Telemetry Medical Other Pending Studies at Discharge: No
--- NOTE | 2018-08-18 14:25 | Cardiology Consultation ---
Date of Consultation August 18, 2018 Assessment & Plan (1) Chest pain: Suspect the patient's chest discomfort is musculoskeletal in origin. He noticed the discomfort while opening a car door. Although his troponins are mildly elevated, they are trending down from his hospitalization at [facility]. (2) CAD (coronary artery disease): The patient had an TOUSSAINT to the LAD, an SVG to the LCx at [facility] last week. Will need outpatient cardiac rehabilitation. (3) S/P mitral valve repair: The patient was diagnosed with posterior mitral leaflet prolapse and severe mitral regurgitation. Underwent a mitral valve repair [facility] last week. (4) PAF (paroxysmal atrial fibrillation): Fortunately, patient remains in sinus rhythm. He did have an MAZE procedure and is now on amiodarone. No change in management at this time. History of Present Illness Attending Physician: Pratibha Walters MD History of Present Illness Mr. Sears is a 58-year-old male admitted yesterday with a chest pain syndrome. This consultation was ordered to assist in his cardiac management. Of note, the patient is followed by Dr. Rachel in in the outpatient setting. Yesterday, the patient was discharged from [facility] following a 2 vessel bypass, mitral valve repair, and a MAZE procedure. On the way home, the patient and his stopped for a meal. Patient explains that this was the largest meal he had eaten in over 1 week. When opening the car door with his left arm at the restaurant, he had the acute onset of a left-sided chest discomfort. He noted tenderness to palpation in that area. On arrival home, the patient was nauseated and notice paresthesias in his left hand. He contacted [facility] who suggested he proceed to our institution for an evaluation. The patient's cardiac history began back on August 09 when he presented to the emergency room in new onset rapid atrial fibrillation. His workup included an echocardiogram which noted prolapse of the posterior mitral leaflet and severe mitral regurgitation. He had a cardiac catheterization performed which noted a 50% distal left main, 90% ostial left circumflex, and a 50% distal RCA stenosis. He was transferred to [facility] for further care. He had a 2 vessel bypass which included an TOUSSAINT to the LAD, an SVG to the LCX. He also had a mitral valve repair along with an MAZE procedure. Currently, patient is resting comfortably in bed without complaints. His symptoms have completely resolved. He is anxious for hospital discharge. Past medical and surgical history 1. CAD 2. CABG x2-see above 3. Mitral valve repair-see above 4. MAZE procedure-see above 5. Hypertension 6. 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 Allergies Allergy/AdvReac Type Severity Reaction Status Date / Time No Known Allergies Allergy Mild NONE Unverified 08/09/18 15:33 Home Medications Home Medications Medication Instructions Recorded Confirmed Type acetaminophen 1,000 mg PO Q8H 08/17/18 08/17/18 History amiodarone 200 mg PO DIRECTED 08/17/18 08/17/18 History aspirin [Aspirin Low Dose] 81 mg PO DAILY 08/17/18 08/17/18 History atorvastatin 20 mg PO HS 08/17/18 08/17/18 History furosemide 20 mg PO BID 08/17/18 08/17/18 History ibuprofen 400 mg PO Q6H PRN 08/17/18 08/17/18 History metoprolol tartrate 12.5 mg PO BID 08/17/18 08/17/18 History oxycodone 1 - 2 tab PO Q4H PRN 08/17/18 08/17/18 History potassium chloride 20 meq PO BID 08/17/18 08/17/18 History Patient History Medical History Right foot pain (Chronic) Dyslipidemia HTN (hypertension) Social History Communication Ability: Effective Beliefs That Will Affect Care: None Current Living Situation: Spouse Other Information That Helps Us Care for You: No Safety Concerns: Feels Safe At This Time Smoking Status: Never smoker Hx Alcohol Use: Yes Hx Substance Use: No Physical Exam Vital Signs (Past 24 Hours): Last Vital Signs Temp 36.7 C 08/18/18 11:53 Pulse 88 08/18/18 11:53 Resp 18 08/18/18 11:53 BP 106/82 08/18/18 11:53 Pulse Ox 97 08/18/18 11:53 Physical Exam: In general is well-developed well-nourished white male seated at the bedside without complaints. HEENT exam is negative. Neck is supple with full carotid upstrokes. No carotid bruits. Jugular venous pressure is flat at 90. There is no thyromegaly. Cardiovascular exam reveals a regular rhythm with normal S1 and S2. Heart sounds are distant. No obvious murmurs. Lungs are clear without rales, rhonchi or wheezes. Breath sounds are diminished at the right base. Chest reveals a well-healing midline scar. Abdomen is soft without bruits. Extremities reveal intact radial artery and posterior tibial pulses bilaterally. There is no peripheral edema. Results & Data Laboratory Results CBC notes hemoglobin of 10.2, hematocrit 30.7, white count 7 point a, and a platelet count of [id number]. Electrolytes notice sodium of 139, potassium 3.9, chloride 107, bicarb 25, BUN 13, creatinine 0.79, and a glucose of 98. Initial troponin was 0.805 with follow-up values of 0.848, and 0.604. Diagnostic Findings EKG notes sinus rhythm and an anterolateral T-wave abnormality. Chest x-ray notes an elevated right hemidiaphragm and postoperative changes.
[2018-08-19] MEDS ORDERED: VANCOMYCIN TROUGH ONE (09:30)
[2018-08-24] MEDS ORDERED: AMIODARONE 200 MG TAB PO SCH (09:00)
== END 2018-08-18 16:37 | disposition home or self-care (01) ==
LOC: 2E 16:45 → ED 16:45 → SUATTDRO 20:32 → 2E 21:13

== ENCOUNTER 2019-09-02 10:50 | Observation (INO) ==
[2019-09-02] MEDS ORDERED: SODIUM CHLORIDE 0.9% 1000ML 1,000 ML IV SCH (11:15)
[2019-09-02] MEDS ORDERED: OPTIRAY 320 125ml IV PRN (11:24)
[2019-09-02 11:30] LABS: Basophils # (auto) 0.04 K/uL (0-0.2); Basophils % (auto) 0.6 %; Eosinophils # (auto) 0.22 K/uL (0-0.5); Eosinophils % (auto) 3.3 %; Hemoglobin 16.2 g/dL (14.0-18.0); Lymphocytes # (auto) 2.44 K/uL (1.2-3.4); Mean Corpuscular Hemoglobin 28.8 pg (25-34); Mean Corpuscular Hgb Conc 34.5 g/dL (32-36); Mean Corpuscular Volume 83.6 fL (80-100); Mean Platelet Volume 10.6 fL (7.4-10.4); Monocytes # (auto) 0.38 K/uL (0.11-0.59); Monocytes % (auto) 5.8 %; Neutrophils # (auto) 3.51 K/uL (1.4-6.5); Neutrophils % (auto) 53.3 %; Platelet Count 261 K/uL (130-400); RDW Coefficient of Variation 12.6 % (11.5-14.5); RDW Standard Deviation 38.3 fL (36.4-46.3); Red Blood Count 5.62 M/uL (4.7-6.1); White Blood Count 6.59 K/uL (4.8-10.8)
--- NOTE | 2019-09-02 11:36 | Emergency Department Note ---
ED Provider Note NAME: RYAN CORRALES AGE: 59 SEX: M ARRIVES VIA: Walk-In INFORMANT: [Patient] ED PROVIDER(S): Telly Darden MD CHIEF COMPLAINT: Left leg numbness IMPRESSION: Strokelike symptoms PLAN: Disposition: Admitted Condition: [Good] MEDICAL DECISION MAKING: The patient presented with strokelike symptoms. He was evaluated. I did initiate a stroke alert and discussed the case with Dr. Gastelum of [facility]- stroke. Patient was sent emergently for CT angiographic imaging. He did evaluate the patient via tele-stroke. Triage Nursing notes reviewed and agree them. Vital Signs: reviewed and remarkable for mild hypertension Differential diagnosis: CVA, TIA, migraine headache, meningitis, sinusitis, CO exposure, ICH, SAH, infection, tumor, headache, sinus thrombosis, arterial dissection, as well as other pathologies. ER treatment provided: Saline hydration Patient had taken aspirin prior to arrival Diagnostics interpreted by me: ECG: Rate:69 Rhythm: Normal sinus [place]: Normal QRS: Normal ST segements: No elevation or depression. Other: No PACs or PVCs. Cardiac Monitoring: Cardiac monitoring ordered. The patient was placed on continuous cardiac monitoring and observed. It revealed a normal sinus rhythm at 75 bpm without ectopy or evidence of dysrhythmia. Laboratory studies: [See below] unremarkable CBC and chemistry panel Imaging studies: CT imaging of the brain as well as CT angiography of the head and neck were performed. Mild plaque noted in the carotids otherwise no acute abnormalities. [facility]. Discussed the case. The patient is not a TPA candidate. He recommended admission to the hospitalist the patient is impro ving. He recommended additional work-up be performed. Consultation was made with internal medicine. The patient was admitted by Dr. gaspar. HPI: The patient is a 59 year old male who presents to the Emergency Room with complaints of left leg numbness and weakness. This started 10 AM this and is improved. The patient also notes the following associated symptoms, mild left- sided headache that started posteriorly and slowly increased. The patient has taken aspirin for relieving factors. Current pain is rated as 6/10. Patient has a history of A. fib but is not anticoagulated. No prior history of CVA or TIA. Pt denies LOC, fevers, chills, diaphoresis, visual changes, neck pain, chest pain, breathing difficulties, nausea, vomiting, abdominal pain, back pain, me julito, hematochezia, urinary symptoms, lymphadenopathy, rash, or other complaints. ROS: See above HPI for pertinent positives & negatives. A total of [10] systems reviewed and were otherwise negative. 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 TM's normal. Oropharynx unremarkable. EYES: PERRL. EOMI. Normal conjunctiva. Sclera non-icteric. NECK: Supple. Normal inspection. Non-tender. No nuchal rigidity. FROM. No bruit. RESPIRATORY: Breath sounds equal. No wheezes. No rhonchi. Normal respiratory effort. CARDIAC: Normal rate. Regular rhythm. No murmurs. No rubs. No JVD. GI: Soft, non distended. No tenderness to palpation. No rebound or guarding. No masses. RECTAL: Deferred. MUSCULOSKELETAL: Unremarkable. No edema. No discoloration. Gross motor strength symmetric. NEURO: Cranial nerves 2-12 grossly intact. Normal sensorium. No sensory or motor deficits noted except patient has some subjective tingling in the left foot. Speech normal. No pronator drift. Normal rapid alternating movements. Normal [id number]. SKIN: No rash or jaundice noted. LYMPH: No adenopathy. ED COURSE: Procedures: [none] [Critical Care:] [None] Telly Darden MD Impression & Plan Stroke-like symptom Past Med/Surg History Medical History (Updated 09/02/19 @ 17:28 by Telly Darden MD) Dyslipidemia HTN (hypertension) Right foot pain (Chronic) Social History Preferred Language: [place] Communication Ability: Effective [employer] Required: No Beliefs That Will Affect Care: None Current Living Situation: Spouse Other Information That Helps Us Care for You: No Feels Safe at Home: Yes Safety Concerns: Feels Safe At This Time Smoking Status: Never smoker Do You Dip or Chew Tobacco: No ; Second Hand Exposure: No ; Tobacco Cessation Education Requested by Patient: No Hx Alcohol Use: Yes Alcohol type: beer Hx Substance Use: No Results & Data Vital Signs Vital Signs - 24 hr 09/02/19 11:03 09/02/19 11:14 09/02/19 11:39 Temperature 36.6 C Temperature Source Oral Pulse Rate 75 72 80 Pulse Rate [Apical] Pulse Rate from SpO2 Sensor 73 Pulse Rhythm Regular Pulse Rhythm [Apical] Pulse Strength Normal Pulse Strength [Apical] Respiratory Rate 18 15 15 Respiratory Effort / Characteristics Non-Labored Spontaneous Respiratory Depth Normal Respiratory Pattern Regular Blood Pressure 154/96 H 167/107 H Blood Pressure [Left Arm] Blood Pressure Mean 115 117 Blood Pressure Mean [Left Arm] Blood Pressure Position Sitting Blood Pressure Position [Left Arm] Pulse Oximetry 100 99 Oxygen Delivery Method Room Air Sepsis Recent Fever Within 48 Hours No Sepsis New/Unexplained Change in Mental Status No Sepsis Action Taken by Nursing No Action Required 09/02/19 11:40 09/02/19 12:12 09/02/19 12:30 Temperature Temperature Source Pulse Rate 70 67 Pulse Rate [Apical] 77 Pulse Rate from SpO2 Sensor Pulse Rhythm Pulse Rhythm [Apical] Regular Pulse Strength Pulse Strength [Apical] Normal Respiratory Rate 20 17 12 Respiratory Effort / Characteristics Non-Labored Spontaneous Respiratory Depth Normal Respiratory Pattern Regular Blood Pressure 173/100 H 134/92 Blood Pressure [Left Arm] 183/110 H Blood Pressure Mean 105 102 Blood Pressure Mean [Left Arm] 134 Blood Pressure Position Blood Pressure Position [Left Arm] Sitting Pulse Oximetry 99 Oxygen Delivery Method Room Air Sepsis Recent Fever Within 48 Hours Sepsis New/Unexplained Change in Mental Status Sepsis Action Taken by Nursing 09/02/19 13:00 09/02/19 13:30 Temperature Temperature Source Pulse Rate 67 71 Pulse Rate [Apical] Pulse Rate from SpO2 Sensor 72 Pulse Rhythm Pulse Rhythm [Apical] Pulse Strength Pulse Strength [Apical] Respiratory Rate 12 21 Respiratory Effort / Characteristics Respiratory Depth Respiratory Pattern Blood Pressure 155/94 H 118/79 Blood Pressure [Left Arm] Blood Pressure Mean 120 89 Blood Pressure Mean [Left Arm] Blood Pressure Position Blood Pressure Position [Left Arm] Pulse Oximetry 97 Oxygen Delivery Method Sepsis Recent Fever Within 48 Hours Sepsis New/Unexplained Change in Mental Status Sepsis Action Taken by Nursing Laboratory Data Result diagrams: 09/02/19 11:15 09/02/19 11:22 Lab Results 09/02/19 09/02/19 09/02/19 Range/Units 11:15 11:15 11:21 WBC 6.59 (4.8-10.8) K/uL RBC 5.62 (4.7-6.1) M/uL Hgb 16.2 (14.0-18.0) g/dL POC Hgb (14.0-18.0) g/dl Hct 47.0 (42-52) % POC Hct (42-52) % MCV 83.6 (80-100) fL MCH 28.8 (25-34) pg MCHC 34.5 (32-36) g/dL RDW Std Deviation 38.3 (36.4-46.3) fL RDW Coeff of Andrew 12.6 (11.5-14.5) % Plt Count 261 (130-400) K/uL MPV 10.6 H (7.4-10.4) fL Immature Gran % (Auto) 0.0 % Neut % (Auto) 53.3 % Lymph % (Auto) 37.0 % Dewey % (Auto) 5.8 % Eos % (Auto) 3.3 % Baso % (Auto) 0.6 % Immature Gran # (Auto) 0.00 (0.00-0.02) K/uL Neut # (Auto) 3.51 (1.4-6.5) K/uL Lymph # (Auto) 2.44 (1.2-3.4) K/uL Dewey # (Auto) 0.38 (0.11-0.59) K/uL Eos # (Auto) 0.22 (0-0.5) K/uL Baso # (Auto) 0.04 (0-0.2) K/uL PT 10.6 (9.0-12.0) Seconds INR 1.0 (0.9-1.1) APTT 28.5 (21.0-31.0) Seconds PTT Ratio 1.0 POC Sodium (135-144) mmol/L Sodium (136-145) mmol/L POC Potassium (3.3-5.0) mmol/L Potassium (3.5-5.1) mmol/L POC Chloride (101-112) mmol/L Chloride (98-107) mmol/L Carbon Dioxide (21-32) mmol/L POC Total CO2 (24-31) mEq/l Anion Gap (3-11) POC Anion Gap (16-25) mmol/L POC BUN (7-18) mg/dl BUN (7-18) mg/dl Creatinine (0.6-1.4) mg/dl POC Creatinine (0.6-1.3) mg/dl Est Cr Clr Drug Dosing ml/min Est GFR ( Amer) Est GFR (Non-Af Amer) BUN/Creatinine Ratio (10-20) Glucose (70-99) mg/dl POC Glucose (other) (70-99) mg/dl Calcium (8.5-10.1) mg/dl POC Ioniz Calcium Saúl (1.12-1.32) mmol/l Magnesium (1.8-2.4) mg/dl Total Bilirubin (0.2-1) mg/dl AST (15-37) U/L ALT (12-78) U/L Alkaline Phosphatase (45-117) U/L Troponin I (0-0.045) ng/ml Total Protein (6.4-8.2) gm/dl Albumin (3.4-5.0) gm/dl Globulin (2.5-4.0) gm/dl Albumin/Globulin Ratio (0.9-2) Blood Type A Positive Antibody Screen NEGATIVE 09/02/19 09/02/19 Range/Units 11:22 11:26 WBC (4.8-10.8) K/uL RBC (4.7-6.1) M/uL Hgb (14.0-18.0) g/dL POC Hgb 16.0 (14.0-18.0) g/dl Hct (42-52) % POC Hct 47 (42-52) % MCV (80-100) fL MCH (25-34) pg MCHC (32-36) g/dL RDW Std Deviation (36.4-46.3) fL RDW Coeff of Andrew (11.5-14.5) % Plt Count (130-400) K/uL MPV (7.4-10.4) fL Immature Gran % (Auto) % Neut % (Auto) % Lymph % (Auto) % Dewey % (Auto) % Eos % (Auto) % Baso % (Auto) % Immature Gran # (Auto) (0.00-0.02) K/uL Neut # (Auto) (1.4-6.5) K/uL Lymph # (Auto) (1.2-3.4) K/uL Dewey # (Auto) (0.11-0.59) K/uL Eos # (Auto) (0-0.5) K/uL Baso # (Auto) (0-0.2) K/uL PT (9.0-12.0) Seconds INR (0.9-1.1) APTT (21.0-31.0) Seconds PTT Ratio POC Sodium 138 (135-144) mmol/L Sodium 136 (136-145) mmol/L POC Potassium 4.2 (3.3-5.0) mmol/L Potassium 4.1 (3.5-5.1) mmol/L POC Chloride 103 (101-112) mmol/L Chloride 106 (98-107) mmol/L Carbon Dioxide 26 (21-32) mmol/L POC Total CO2 24 (24-31) mEq/l Anion Gap 5.0 (3-11) POC Anion Gap 16.0 (16-25) mmol/L POC BUN 14 (7-18) mg/dl BUN 13 (7-18) mg/dl Creatinine 0.91 (0.6-1.4) mg/dl POC Creatinine 0.9 (0.6-1.3) mg/dl Est Cr Clr Drug Dosing 95.8 ml/min Est GFR ( Amer) 105.8 Est GFR (Non-Af Amer) 91.3 BUN/Creatinine Ratio 14.2 (10-20) Glucose 112 H (70-99) mg/dl POC Glucose (other) 111 H (70-99) mg/dl Calcium 9.7 (8.5-10.1) mg/dl POC Ioniz Calcium Saúl 1.20 (1.12-1.32) mmol/l Magnesium 2.2 (1.8-2.4) mg/dl Total Bilirubin 0.4 (0.2-1) mg/dl AST 15 (15-37) U/L ALT 28 (12-78) U/L Alkaline Phosphatase 77 (45-117) U/L Troponin I < 0.015 (0-0.045) ng/ml Total Protein 8.5 H (6.4-8.2) gm/dl Albumin 3.9 (3.4-5.0) gm/dl Globulin 4.6 H (2.5-4.0) gm/dl Albumin/Globulin Ratio 0.9 (0.9-2) Blood Type Antibody Screen Administered Medications Acetaminophen (Tylenol) 1,000 mg PO Q8H PASCALE Stop: 10/02/19 14:59 Last Admin: 09/02/19 16:19 Dose: 1,000 mg Documented by: [id number] Ioversol (Optiray 320 125ml) 118 ml IV ONCE PRN PRN Reason: Interaction Checking Stop: 09/06/19 11:23 Last Admin: 09/02/19 11:24 Dose: 118 ml Documented by: [id number] Discontinued Medications Sodium Chloride (Nss 1000ml) 1,000 mls @ 50 mls/hr IV .Q20H PASCALE Stop: 10/02/19 11:14 Last Infusion: 09/02/19 14:45 Dose: 0 mls/hr Documented by: [id number] Admin: 09/02/19 12:13 Dose: 50 mls/hr Documented by: [id number] Discharge Plan Visit Data *Final* Discharge Date/Time: 09/02/19 14:20 Chief Complaint: Stroke/CVA Symptoms Stated Complaint: DIZZINESS, NEAR SNYCOPE Other Complaint: Syncope (Near Syncope) ED Provider: Telly Darden Discharge Problem: Stroke-like symptom Patient Disposition: Admitted As Inpatient Discharge Instructions Interventions: ED Discharge Assessment Last Done: 09/02/19 14:20
[2019-09-02 11:38] LABS: iSTAT Creatinine 0.9 mg/dl (0.6-1.3); iSTAT Ionized Calcium 1.2 mmol/l (1.12-1.32); iSTAT Potassium 4.2 mmol/L (3.3-5.0)
[2019-09-02 11:46] LABS: Alanine Aminotransferase 28 U/L (12-78); Albumin Level 3.9 gm/dl (3.4-5.0); Aspartate Aminotransferase 15 U/L (15-37); BUN Creatinine Ratio 14.2 (10-20); Blood Urea Nitrogen 13 mg/dl (7-18); Calcium 9.7 mg/dl (8.5-10.1); Carbon Dioxide 26 mmol/L (21-32); Chloride 106 mmol/L (98-107); Creatinine Clr Calc Pharmacy 95.8 ml/min; Est GFR (African American) 105.8; Est GFR (Non-African American) 91.3; Glucose 112 mg/dl (70-99); Magnesium 2.2 mg/dl (1.8-2.4); Potassium 4.1 mmol/L (3.5-5.1); Sodium 136 mmol/L (136-145)
[2019-09-02 11:47] LABS: Partial Thromboplastin Time 28.5 Seconds (21.0-31.0); Prothrombin Time 10.6 Seconds (9.0-12.0)
[2019-09-02 11:51] LABS: Albumin Globulin Ratio 0.9 (0.9-2); Alkaline Phosphatase 77 U/L (45-117); Bilirubin,Total 0.4 mg/dl (0.2-1); Globulin 4.6 gm/dl (2.5-4.0); Total Protein 8.5 gm/dl (6.4-8.2); Troponin I < 0.015 ng/ml (0-0.045)
--- NOTE | 2019-09-02 11:56 | CT Scan Report ---
CT angio head w con HISTORY: Mental status change Stroke evaluation TECHNIQUE: Multiaxial CT angiography of the head was performed IV contrast: None. Maximum intensit y projection images were also obtained. A dose lowering technique was utilized adhering to the princ iplMaria Isabel. COMPARISON: None. FINDINGS: There is no mass, hematoma, midline shift, or acute infarct. Visualized intracranial recruiting internship al carotid arteries, distal vertebral arteries, and basilar artery are widely patent. There is no sig nificant stenosis, occlusion, or aneurysm seen within the bilateral ACAs, MCAs, or director of consulting services. IMPRESSION: No significant stenosis, occlusion, or aneurysm within the [place]oon of Mg. ACT 112: Negative or not required by law. The above report was generated using voice recognition software. It may contain grammatical, syntax or spelling errors. Electronically signed by: Daniel Garcia M.D. 09/02/2019 11:54 AM
--- NOTE | 2019-09-02 11:58 | CT Scan Report ---
HEAD CT NONCONTRAST CT DOSE: 1214.99 mGy.cm HISTORY: Stroke symptoms. TECHNIQUE: Multiaxial CT images of the head were performed without the use of intravenous contrast. A utomated exposure control was utilized for this study. A dose lowering technique was utilized adheri ng to the principles of ALARA. Comparison: Head CT 01/21/2017. Findings: The paranasal sinuses and mastoid air cells are clear. The calvarium and skull base are int act. The ventricles and sulci are within normal limits. There is no mass, hematoma, midline shift, or acute infarct. Impression: No acute intracranial abnormality. ACT 112: Negative or not required by law. Electronically signed by: Capo Fields M.D. 09/02/2019 11:56 AM
--- NOTE | 2019-09-02 12:06 | CT Scan Report ---
CT ANGIOGRAPHY OF THE NECK WITH CONTRAST CLINICAL HISTORY: Stroke evaluation. COMPARISON STUDY: No previous studies for comparison. Technique: CT angiography of the carotid and vertebral arteries was obtained using [employer] 320 IV and 3D reconstruction on an independent workstation. NASCET criteria was utilized. Automated exposure c ontrol was utilized for the study. A dose lowering technique was utilized adhering to the principles of ALARA. Findings: Lung apices are clear. There is no cervical lymphadenopathy. There is no cervical spine fra cture. Median sternotomy wires are partially imaged. Moderate atherosclerotic plaque within the proximal right internal carotid artery is noted without st enosis. There is mild plaque within the proximal left internal carotid artery without stenosis. The b ilateral vertebral arteries are patent. There is no dissection or aneurysm within the major vessels o f the neck. The CTA of the head and head CT will be reported separately. There is mild plaque within the proximal right vertebral artery. IMPRESSION: 1. No stenosis or dissection within the major vessels of the neck. 2. Mild to moderate atherosclerotic plaque within the proximal bilateral internal carotid arteries. ACT 112: Negative or not required by law. Electronically signed by: Jason Hamlin M.D. 09/02/2019 12:05 PM
--- NOTE | 2019-09-02 12:31 | XRay Report ---
XR chest 1V portable HISTORY: stroke like symptoms COMPARISON: Chest 08/17/2018. FINDINGS: The lungs are clear. The heart is normal in size. Mitral valve ring and poststernotomy whitaker ges are again noted. No pleural effusions. No pneumothorax. IMPRESSION: No acute process. ACT 112: Negative or not required by law. Electronically signed by: Capo Fields M.D. 09/02/2019 12:30 PM
--- NOTE | 2019-09-02 13:37 | History & Physical Report ---
Date of Service September 02, 2019 Assessment & Plan (1) TIA (transient ischemic attack): Findings are concerning for TIA. Symptoms have mostly resolved and patient is not a TPA candidate. Plan will be to place in observation. Under stroke protocol. Check MRI. Patient did note a previous history of neck and back spondylolisthesis, will add MRIs of these regions as well to rule out a radicular symptoms. Check 2D echo with bubble study. Continue low-dose aspirin as well as statin. Check fasting lipids. Will ask neurology to evaluate for further recommendations. Patient did request sedation for MRI will order appropriately. (2) CAD (coronary artery disease): Patient is on low-dose aspirin as noted along with a statin, will continue both these. He is also on metoprolol which we will continue as well. (3) PAF (paroxysmal atrial fibrillation): Patient had a lone episode of atrial fibrillation and tells me he has has not had a recurrence. Patient follows with Dr. Regalado, will consult him for further advice regarding possibility of starting anticoagulation. 2D echo as noted above. History of Present Illness Primary Care Provider: Fabricio Vogt DO This is a 59-year-old male with past medical history of coronary artery disease, status post CABG and paroxysmal atrial fibrillation that presents today complaining of left lower extremity weakness and vertigo. Patient is a very good historian accompanied by his . 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 He was doing well and continue on his route. He had stopped at the bank and was having conversation with an employee there. He had a sudden onset of vertigo with some pain in his posterior head radiating into his cervical area. He went to walk and noticed that his left leg was numb and somewhat weak. 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 He drove to a secluded area. He walked around today and noticed that his leg still remains significantly down. This numbness extended up into the hip region. At the other leg was not effective. Patient had no visual disturbances nor did have any speech disturbance. His upper extremity is not affected either although he does note he has some chronic tendinitis in the left shoulder currently is now back. 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 He drove his own personal vehicle to the emergency room for further evaluation. Symptoms started around 10 in the morning. He arrived emergency room approxi mately an hour later. After being taken, he noted that the symptoms started to resolve significantly. The pain in his neck and resolved and his leg was no longer completely numb. He does note some residual numbness in the sole of his left foot but he thinks that even that is starting to resolve. Patient denies any chest pain, numbness of breath, palpitations, or other issues. He does tell me he has a history of atrial fibrillation that occurred around the time of his CABG but he has never had any symptoms and is always been in normal sinus rhythm when checked. Monitor today also shows normal sinus rhythm. Allergies Allergy/AdvReac Type Severity Reaction Status Date / Time No Known Allergies Allergy Mild NONE Unverified 08/09/18 15:33 Home Medications Home Medications Medication Instructions Recorded Confirmed Type acetaminophen 1,000 mg PO Q8H 08/17/18 09/02/19 History aspirin [Aspirin Low Dose] 81 mg PO DAILY 08/17/18 09/02/19 History atorvastatin 20 mg PO HS 08/17/18 09/02/19 History ibuprofen 400 mg PO Q6H PRN 08/17/18 09/02/19 History metoprolol tartrate 12.5 mg PO BID 08/17/18 09/02/19 History amlodipine [Norvasc] 2.5 mg PO DAILY 09/02/19 09/02/19 History Past Med/Surg History Medical History (Updated 09/02/19 @ 13:40 by Zan Valente DO) Dyslipidemia HTN (hypertension) Right foot pain (Chronic) Social History Preferred Language: Tanzanian Communication Ability: Effective Base Filler Operator Required: No Beliefs That Will Affect Care: None Current Living Situation: Spouse Feels Safe at Home: Yes Smoking Status: Never smoker Hx Alcohol Use: Yes Alcohol type: beer Hx Substance Use: No Review of Systems Constitutional: no fever, no chills, no weakness, no weight loss and no weight gain Eyes: no eye pain, no loss of peripheral vision, no spots in vision and no problem reported Respiratory: no cough, no chest congestion, no dyspnea and no dyspnea on exertion Cardiovascular: no chest pain, no dyspnea, no orthopnea, no palpitations, no lightheadedness and no edema Gastrointestinal: no abdominal pain, no nausea, no vomiting, no constipation and no diarrhea/loose stools Musculoskeletal: + back pain (Some back spasms in the lower back bilaterally, reported earlier but since resolved), + neck pain and + muscle weakness; no joint pain, no stiffness and no myalgia Integumentary: no rash Neurologic: + gait abnormality, + unsteadiness, + localized weakness, + generalized weakness, + paralysis, + loss of sensation, + numbness and + headache(s); no falls, no paresthesia and no tremor(s) Physical Exam Constitutional: cooperative; no acute distress Neck: trachea midline, no thyromegaly Respiratory: normal respiratory effort Auscultation: lungs clear to auscultation bilaterally; no crackles, no rales, no rhonchi and no wheezes Cardiovascular: Rate/Rhythm: regular rate and regular rhythm Heart Sounds: normal S1, normal S2 and + murmur Gastrointestinal (Abdomen): Inspection/Auscultation: abdomen normal to inspection Percussion/Palpation: abdomen soft; abdomen nontender, no guarding, abdomen not rigid and no hepatosplenomegaly Musculoskeletal: no cyanosis or clubbing, extremities motor strength 5/5 Skin: no rashes, warm and dry Neurologic: patellar DTR's 2+ bilat, sensation intact and PERRL, EOMI, accommodation nl, no face palsy, no dysarthria Results & Data Vital Signs (Past 12 Hours) Vital Signs Temp Pulse Pulse Resp BP BP Pulse Ox 09/02/19 13:00 67 12 155/94 H 09/02/19 12:30 67 12 134/92 09/02/19 12:12 70 17 173/100 H 09/02/19 11:40 77 20 183/110 H 99 09/02/19 11:39 80 15 09/02/19 11:14 72 15 167/107 H 99 09/02/19 11:03 36.6 C 75 18 154/96 H 100 Laboratory Results WC is a 6.5, hemoglobin is 16.2, hematocrit of 47, platelets of 261. INR is 1. Sodium 138, potassium 4.2, chloride 103, carbon dioxide 26, BUN of 13 creatinine 0.91. Glucose of 112. Troponin is nondetectable. Total protein is 8.5, LFTs are otherwise unremarkable. Diagnostic Findings HEAD CT NONCONTRAST CT DOSE: 1214.99 mGy.cm HISTORY: Stroke symptoms. TECHNIQUE: Multiaxial CT images of the head were performed without the use of intravenous contrast. Automated exposure control was utilized for this study. A dose lowering technique was utilized adhering to the principles of ALARA. Comparison: Head CT 01/21/2017. Findings: The paranasal sinuses and mastoid air cells are clear. The calvarium and skull base are intact. The ventricles and sulci are within normal limits. There is no mass, hematoma, midline shift, or acute infarct. Impression: No acute intracranial abnormality. -- CT angio head w con HISTORY: Mental status change Stroke evaluation TECHNIQUE: Multiaxial CT angiography of the head was performed IV contrast: None. Maximum intensity projection images were also obtained. A dose lowering technique was utilized adhering to the principles of ALARA. COMPARISON: None. FINDINGS: There is no mass, hematoma, midline shift, or acute infarct. Visualized intracranial internal carotid arteries, distal vertebral arteries, and basilar artery are widely patent. There is no significant stenosis, occlusion, or aneurysm seen within the bilateral ACAs, MCAs, or car rental clerk. IMPRESSION: No significant stenosis, occlusion, or aneurysm within the cowl[place] of Mg. -- CT ANGIOGRAPHY OF THE NECK WITH CONTRAST CLINICAL HISTORY: Stroke evaluation. COMPARISON STUDY: No previous studies for comparison. Technique: CT angiography of the carotid and vertebral arteries was obtained using Optiray 320 IV and 3D reconstruction on an independent workstation. NASCET criteria was utilized. Automated exposure control was utilized for the study. A dose lowering technique was utilized adhering to the principles of ALARA. Findings: Lung apices are clear. There is no cervical lymphadenopathy. There is no cervical spine fracture. Median sternotomy wires are partially imaged. Moderate atherosclerotic plaque within the proximal right internal carotid artery is noted without stenosis. There is mild plaque within the proximal left internal carotid artery without stenosis. The bilateral vertebral arteries are patent. There is no dissection or aneurysm within the major vessels of the neck. The CTA of the head and head CT will be reported separately. There is mild plaque within the proximal right vertebral artery. IMPRESSION: 1. No stenosis or dissection within the major vessels of the neck. 2. Mild to moderate atherosclerotic plaque within the proximal bilateral internal carotid arteries. -- XR chest 1V portable HISTORY: stroke like symptoms COMPARISON: Chest 08/17/2018. FINDINGS: The lungs are clear. The heart is normal in size. Mitral valve ring and poststernotomy changes are again noted. No pleural effusions. No pneumothorax. IMPRESSION: No acute process. PG Care Time/CCT Total # of Minutes Spent Total Time Spent with Patient: Total time spent is greater than 50% in coordination of care (as documented) at patient's floor/unit and/or counseling patient: Coding Level of Care Code 52420 OBS Care - Level 3 Diagnoses TIA (transient ischemic attack) G45.9 CAD (coronary artery disease) I25.10 PAF (paroxysmal atrial fibrillation) I48.0
[2019-09-02] MEDS ORDERED: LORazepam 0.5 MG TAB PO STA (14:43)
[2019-09-02] MEDS ORDERED: PHARMACIST DISCHARGE MED REC CONSULT PRN (14:43)
[2019-09-02] MEDS ORDERED: POLYETHYLENE (MIRALAX) 17 GM PACK PO PRN (14:43)
[2019-09-02] MEDS ORDERED: ZOLPIDEM TARTRATE 5 MG TAB PO PRN (14:43)
[2019-09-02] MEDS ORDERED: ONDANSETRON INJ 2 MG/ML 2 ML VIAL IV PRN (14:43)
[2019-09-02] MEDS ORDERED: IBUPROFEN 200 MG TAB PO PRN (14:53)
[2019-09-02] MEDS: ACETAMINOPHEN 500 MG TAB PO SCH ×2 (16:19→22:45)
--- NOTE | 2019-09-02 16:48 | XCELERA ---
[id number] \\[email or web address]\[id number]_[id number]
--- NOTE | 2019-09-02 18:56 | Magnetic Resonance Report ---
MR cervical spine wo con CLINICAL HISTORY: radiculopathy TECHNIQUE: Sagittal and axial T1, T2 and STIR images were obtained. COMPARISON STUDY: July 2015 There are no suspicious areas of marrow replacement. No intrinsic cervical cord lesions are visualize d. C2-3: There is no evidence of disc bulge or focal herniation. There is no spinal or foraminal stenosi s. C3-4: There is a minimal circumferential disc bulge. There is no significant spinal stenosis. There i s minimal bilateral foraminal narrowing C4-5: There is a mild circumferential disc bulge. There is minor spinal canal narrowing. There is mil d left-sided foraminal narrowing C5-6 :There is a mild circumferential disc bulge. There is no significant spinal stenosis. There is m ild right-sided foraminal narrowing, and moderate left-sided foraminal narrowing. C6-7: There is a circumferential disc bulge. There is very minor spinal canal narrowing. There is mil d bilateral foraminal narrowing C7-T1: There is no evidence of disc bulge or focal herniation. There is no evidence of spinal or fora kassi stenosis. IMPRESSION: 1. Minimal progression in the multilevel spondylytic changes with minimal spinal canal narrowing at t he C4-5 and C6-7 levels, and multilevel foraminal narrowing, most pronounced on the left at the C5-C6 level. ACT 112: Negative or not required by law. Electronically signed by: Alli Weldon M.D. 09/02/2019 6:55 PM
--- NOTE | 2019-09-02 19:15 | Magnetic Resonance Report ---
MR lumbar spine wo con CLINICAL HISTORY: Back pain left leg numbness. TECHNIQUE: Sagittal and axial T1, T2 and STIR images were obtained. COMPARISON STUDY: No previous studies for comparison. OBSERVATIONS: There is mild discogenic endplate edema, most pronounced at the L1-2 level. L1-2: There is a circumferential disc bulge. There is minimal spinal canal narrowing. There is minima l bilateral foraminal narrowing L2-3: There is a minimal circumferential disc bulge. There is no significant spinal or foraminal sten osis L3-4: There is a circumferential disc bulge with mild to moderate spinal stenosis. There is facet paul nt arthropathy. There is no significant foraminal narrowing L4-5: No disc protrusions or extrusions. No evidence of spinal canal or neural foraminal compromise. L5-S1: There is a grade 1 spondylolisthesis of L5 on S1. There is a minimal disc bulge. There is no s ignificant spinal stenosis. There is mild bilateral foraminal narrowing. The conus medullaris and cauda equina appear normal. IMPRESSION: 1. Multilevel spondylytic changes as described above. The findings are most significant for mild to m oderate spinal stenosis at the L3-4 level. ACT 112: Negative or not required by law. Electronically signed by: Alli Weldon M.D. 09/02/2019 7:14 PM
[2019-09-02] MEDS ORDERED: GADOBUTROL 65ML VIAL IV PRN (19:28)
--- NOTE | 2019-09-02 19:39 | Magnetic Resonance Report ---
MRI OF THE BRAIN WITHOUT AND WITH IV CONTRAST CLINICAL HISTORY: TIA VERTIGO, HEADACHE, LEFT LEG NUMBNESS. COMPARISON STUDY: December 2005, CT scan performed 09/02/2019 TECHNIQUE: MRI of the brain was performed from the vertex to the skull base utilizing various T1 and T2 weighted sequences. Following the IV administration of 9 mL of Gadavist contrast, additional enhan patria images were obtained. FINDINGS: Sagittal T1, axial diffusion, proton density and T2 weighted axial, coronal FLAIR, and pre and post a xial T1-weighted images were acquired. These were supplemented with post gadolinium coronal T1 weight ed images. No intra or extra-axial mass lesions are visualized. Axial diffusion-weighted images reveal no evidence of acute or subacute infarction. There is no evidence of ventricular dilatation. Proton density T2-weighted and FLAIR images reveal no significant intraparenchymal signal abnormaliti es. There are no abnormal flow voids. There is no evidence of pathologic enhancement. IMPRESSION: Normal MRI of the brain for age ACT 112: Negative or not required by law. Electronically signed by: Alli Weldon M.D. 09/02/2019 7:37 PM
[2019-09-02] MEDS: METOPROLOL TARTRATE 25 MG TAB PO SCH (20:42)
[2019-09-02] MEDS ORDERED: ATORVASTATIN 20 MG TAB PO SCH (21:00)
[2019-09-03 06:02] LABS: Estimated Average Glucose 120 mg/dl; Hemoglobin A1C 5.8 % (4.5-5.6)
[2019-09-03 06:12] LABS: Basophils # (auto) 0.03 K/uL (0-0.2); Basophils % (auto) 0.5 %; Eosinophils # (auto) 0.31 K/uL (0-0.5); Eosinophils % (auto) 5.1 %; Hematocrit (blood only) 42.5 % (42-52); Hemoglobin 14.3 g/dL (14.0-18.0); Immature Granulocytes # (auto) 0.01 K/uL (0.00-0.02); Immature Granulocytes % (auto) 0.2 %; Lymphocytes # (auto) 2.17 K/uL (1.2-3.4); Lymphocytes % (auto) 35.4 %; Mean Corpuscular Hemoglobin 28.4 pg (25-34); Mean Corpuscular Hgb Conc 33.6 g/dL (32-36); Mean Corpuscular Volume 84.3 fL (80-100); Mean Platelet Volume 10.6 fL (7.4-10.4); Monocytes # (auto) 0.45 K/uL (0.11-0.59); Monocytes % (auto) 7.3 %; Neutrophils # (auto) 3.16 K/uL (1.4-6.5); Neutrophils % (auto) 51.5 %; Platelet Count 235 K/uL (130-400); RDW Coefficient of Variation 12.9 % (11.5-14.5); RDW Standard Deviation 39.3 fL (36.4-46.3); Red Blood Count 5.04 M/uL (4.7-6.1); White Blood Count 6.13 K/uL (4.8-10.8)
[2019-09-03] MEDS: ACETAMINOPHEN 500 MG TAB PO SCH (06:16)
[2019-09-03 06:48] LABS: BUN Creatinine Ratio 14.8 (10-20); Calcium 8.9 mg/dl (8.5-10.1); Creatinine Clr Calc Pharmacy 92.1 ml/min; Est GFR (African American) 103.1; Est GFR (Non-African American) 88.9; Magnesium 2.2 mg/dl (1.8-2.4); Potassium 3.6 mmol/L (3.5-5.1)
--- NOTE | 2019-09-03 07:11 | Electrocardiogram Report ---
Test Reason : Blood Pressure : / mmHG Vent. Rate : 069 BPM Atrial Rate : 069 BPM P-R Int : 188 ms QRS Dur : 094 ms QT Int : 402 ms P-R-T Axes : 052 041 048 degrees QTc Int : 430 ms Normal sinus rhythm Normal ECG When compared with ECG of 18-AUG-2018 06:26, ST no longer elevated in Inferior leads ST no longer elevated in Anterolateral leads Confirmed by Boubacar Perez ([id number]) on 09/03/2019 7:10:50 AM Referred By: SELF Confirmed By:Boubacar Perez
[2019-09-03] MEDS: METOPROLOL TARTRATE 25 MG TAB PO SCH (08:16)
[2019-09-03] MEDS ORDERED: AMLODIPINE BESYLATE 5 MG TAB PO SCH (09:00)
[2019-09-03] MEDS ORDERED: ASPIRIN 81 MG ECTAB PO SCH (09:00)
--- NOTE | 2019-09-03 09:22 | Cardiology Consultation ---
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 All of a sudden he had symptoms of vertigo prior to that episode he had left temporal pain. Of note he has had migraines in the past usually has an aura and that his discomfort does start along the left latter day. He felt unsteady on his feet. He actually was using the wall to hold himself up he then noticed that his left leg just did not quite feel normal not that he was dragging it but that it was not quite holding him up. He notes in the morning he had severe low back discomfort to the point that his was having to massage it for him he notes his migraines usually start with muscular pain involving his cervical neck. After leaving the bank he drove to a parking spot. He notes that he could turn the steering wheel his vision was normal he still felt quite late somewhat vertiginous. He had no slurred speech as he did talk to his at one point. He had no clumsiness in his hands. This morning he still notes mild temporal headache. During the episode yesterday he denies any palpitations or fluttering or feeling his heart racing. He had no symptoms of atrial fibrillation like he had before the surgery. He notes he checks his heart rate almost every day and it is usually nice and regular and in the 50s and 60s. 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 The rest of a complete her systems otherwise negative September 03, 2019 History of Present Illness Attending Physician: Cheko Khan MD Allergies Allergy/AdvReac Type Severity Reaction Status Date / Time No Known Allergies Allergy Mild NONE Unverified 08/09/18 15:33 Home Medications Home Medications Medication Instructions Recorded Confirmed Type acetaminophen 1,000 mg PO Q8H 08/17/18 09/02/19 History aspirin [Aspirin Low Dose] 81 mg PO DAILY 08/17/18 09/02/19 History atorvastatin 20 mg PO HS 08/17/18 09/02/19 History ibuprofen 400 mg PO Q6H PRN 08/17/18 09/02/19 History metoprolol tartrate 12.5 mg PO BID 08/17/18 09/02/19 History amlodipine [Norvasc] 2.5 mg PO DAILY 09/02/19 09/02/19 History Patient History Medical History Dyslipidemia HTN (hypertension) Right foot pain (Chronic) Social History Preferred Language: Romansh Communication Ability: Effective National Sales Executive Required: No Beliefs That Will Affect Care: None Current Living Situation: Spouse Other Information That Helps Us Care for You: No Feels Safe at Home: Yes Safety Concerns: Feels Safe At This Time Smoking Status: Never smoker Do You Dip or Chew Tobacco: No ; Second Hand Exposure: No ; Tobacco Cessation Education Requested by Patient: No Hx Alcohol Use: Yes Alcohol type: beer Hx Substance Use: No Results & Data ([facility]) Vital Signs (Past 12 Hours) Vital Signs Temp Pulse Pulse Resp BP BP Pulse Ox 09/03/19 08:00 60 09/03/19 07:17 36.4 C L 63 18 120/73 98 09/03/19 04:34 36.6 C 75 18 113/71 97 09/02/19 23:36 36.7 C 67 20 107/69 97 09/02/19 23:18 68 PHYSICAL EXAMINATION: HEENT: 1+ carotid upstrokes. No carotid bruits. Venous pressure appeared normal. Sclerae is anicteric. Hearing is normal. LUNGS: Normal respirations bilaterally. No rales, rhonchi or wheezing. HEART: Regular rate and rhythm no appreciable murmurs rubs or gallops the second heart sound is slightly accentuated ABDOMEN: Soft, nontender, nondistended. Positive bowel sounds. EXTREMITIES: No clubbing, cyanosis, or edema. PSYCHIATRIC: His affect appeared appropriate. NEUROLOGIC: He is awake, alert and oriented x3. Findings cath 07/2018 LM -50% eccentric distal left main stenosis just prior to bifurcation LAD -moderate caliber vessel, mild diffuse proximal disease, distal luminal irregularities as tapers to apex. Gives off 2 moderate caliber diagonals without significant disease Circumflex -small to moderate caliber vessel, 90% ostial stenosis, diffuse mild to moderate mid segment disease prior to OM 2 RCA -large caliber vessel, dominant, mid segment luminal irregularities, 50-60% distal stenosis at bifurcation of right PDA, right PLB. EKG sinus rhythm. Normal ECG MRI no evidence of stroke CT angio of his head and neck no significant vascular disease Impressions: 1. Vertiginous symptoms with weakness of his left leg 2. Coronary disease status post coronary bypass grafting x2 with a TOUSSAINT to the LAD and an SVG to the OM with mitral valve repair involving the P2 segment with annuloplasty ring, Maze procedure, ligation of the left atrial appendage July 2018 number next history of paroxysmal atrial fibrillation before his surgery maintaining sinus rhythm post surgery. 3.hyperlipidemia 4. hypertension 5. three-vessel coronary artery disease involving the left main and ostial portion of the circumflex 6. Outpatient echo October 2018 suggesting normal LV function echocardiogram here suggesting mild LV dysfunction I did review his monitor here there were no episodes of atrial fibrillation it does not sound like he had any symptomatic out patient episodes before this. I do wonder if this was a complex migraine. There is nothing on his MRI to suggest a stroke. Although he is never had a complex migraine and he normally gets an aura he did have pain that originated around his latter day which is consistent with his previous history of migraines and he also has significant muscle spasms yesterday. He does note that muscle spasms especially in his neck tend to lead to his migraines. Neurologically he is intact this morning. If neurology believes this is a complex migraine I would recommend a 4-week event recorder as an outpatient make sure he is not having any asymptomatic episodes of atrial fibrillation as his chads 2 Vascor is 2. If we think he had a stroke associated with atrial fibrillation his chads 2 Vascor would be 4. He should remain on beta-blockers as an outpatient he takes 25 mg of Toprol at night he should remain on aspirin. There is nothing in the echo report to suggest that he has a thrombus on the mitral valve repair were that there was any mobile density on the mitral valve. He denies any fevers chills or Reiger's to suggest endocarditis.
[2019-09-03 11:25] VITALS: TEMP 97.9; O2SAT 96
--- NOTE | 2019-09-03 11:52 | Neurology Consultation ---
Date of Consultation September 03, 2019 Assessment & Plan (1) TIA (transient ischemic attack): Patient's symptoms seem most consistent with a posterior circulation TIA. He is already on appropriate medical therapy including daily low-dose aspirin and a statin. He should continue with these medications. Patient should also have a 30-day cardiac event monitor to further exclude recurrence of atrial fibrillation. If this testing is positive would need to consider long-term anticoagulation. 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 See discussion below regarding basilar migraine. (2) Basilar migraine: It is notable that this patient has a history of migraine with aura and sometimes migrainous aura without associated headache. His current presentation is also potentially consistent with basilar migraine. However, he has never had a similar migrainous event previously. Basilar migraine is really a diagnosis of exclusion but nonetheless, remains a distinct possibility in this patient. Calcium channel blockers are often useful for prevention of this type of headache syndrome. Patient is already taking Norvasc. Given his overall relatively high migraine frequency, about 1 episode per week, this patient would be a good candidate for a migraine preventive medication. As he is already on a calcium channel holley, he would be an appropriate candidate for a trial of topiramate. Potential side effects of topiramate discussed directly with patient including numbness and tingling as well as a low risk of kidney stones. Would start with topiramate 25 mg twice daily. Patient agreeable to a trial. Case discussed with attending hospitalist as well. Patient may follow-up with me in the outpatient neurology clinic after October 13 in light of [facility] coronavirus guidelines. History of Present Illness Reason for Consultation: TIA Requesting Physician: Zan Valente DO Attending Physician: Cheko Khan MD History of Present Illness The patient is a 59-year-old male with a chief complaint of staggering to the left and associated dizziness and headache that began acutely yesterday morning at around 10 AM. He recalls feeling a strange or funny sensation along the back of his head and neck at the time of symptom onset that was immediately followed by an unusual sensation of movement, not truly spinning, no associated diplopia but with some difficulty focusing his vision. His left leg felt numb and somewhat weak at that time as well. He was still able to stand but recalls staggering a bit to the left at that time. His symptoms resolved within a few minutes although his headache has persisted. The patient has never had similar symptoms in the past although he does relay a history of migraine with aura, sometimes only experiencing a visual aura, other times aura and headache together. He endorses a history of episodic migrainous headache, typically occurring 1 time per week, for several years. He does not take any specific medication for this issue. Past medical history is notable for atrial fibrillation and coronary artery disease. He has a history of coronary artery bypass grafting and maze procedure. He follows with Dr. Rachel, cardiology. Patient has not had a known recurrence of his atrial fibrillation. He does not take an anticoagulant. He does take daily low-dose aspirin, atorvastatin, metoprolol, and amlodipine. A CT of the head completed yesterday was negative for hemorrhage or acute process. A CT angiogram of the head and neck revealed mild to moderate atherosclerotic plaque within the proximal bilateral internal carotid arteries and was otherwise unremarkable. An MRI of the brain was negative for acute or subacute infarct. Imaging described in further detail below. Allergies Allergy/AdvReac Type Severity Reaction Status Date / Time No Known Allergies Allergy Mild NONE Unverified 08/09/18 15:33 Home Medications Home Medications Medication Instructions Recorded Confirmed Type acetaminophen 1,000 mg PO Q8H 08/17/18 09/02/19 History aspirin [Aspirin Low Dose] 81 mg PO DAILY 08/17/18 09/02/19 History atorvastatin 20 mg PO HS 08/17/18 09/02/19 History ibuprofen 400 mg PO Q6H PRN 08/17/18 09/02/19 History metoprolol tartrate 12.5 mg PO BID 08/17/18 09/02/19 History amlodipine [Norvasc] 2.5 mg PO DAILY 09/02/19 09/02/19 History Patient History Medical History Dyslipidemia HTN (hypertension) Right foot pain (Chronic) Family History Sister , age 58 Myocardial infarction Uncle , age 60 Myocardial infarction Other Cancer Hypertension Social History Preferred Language: Swazi Communication Ability: Effective Lead Caster Required: No Beliefs That Will Affect Care: None Current Living Situation: Spouse Other Information That Helps Us Care for You: No Feels Safe at Home: Yes Safety Concerns: Feels Safe At This Time Smoking Status: Never smoker Do You Dip or Chew Tobacco: No ; Second Hand Exposure: No ; Tobacco Cessation Education Requested by Patient: No Hx Alcohol Use: Yes Alcohol type: beer Hx Substance Use: No Review of Systems Constitutional: no fever and no chills Eyes: no blind spots and no diplopia Ear, Nose, Mouth, Throat: no hearing loss Respiratory: no cough and no dyspnea Cardiovascular: no chest pain and no palpitations Gastrointestinal: no nausea and no vomiting Genitourinary: no urinary incontinence Musculoskeletal: + neck pain; no myalgia Integumentary: no rash and no lesions Neurologic: as per Subjective / HPI Psychiatric: no depression and no anxiety Hematologic / Lymphatic: no easy bleeding and no easy bruising Physical Exam Physical Exam: The patient is a well-developed, well-nourished elderly male. He is alert and fully oriented. Recent and remote memory intact. Attention and concentration normal. Patient exhibits a normal spontaneous speech pattern as well as an age-appropriate fund of knowledge. Visual moya full to confrontation. Visual acuity normal. Pupils equal round reactive to light and accommodation. Eye movements normal. Facial sensation intact. There is no facial droop or weakness. Hearing intact. Palate elevates to midline. Shoulder shrug intact. Tongue protrudes to midline. Sensation intact all modalities in all 4 limbs. Deep tendon reflexes are intact and symmetrical for the arms and legs. Plantar responses downgoing bilaterally. There is no dysdiadochokinesia or dysmetria [id number] or [id number] bilaterally. Ophthalmoscopic examination reveals normal-appearing optic disks and posterior segments. No papilledema or hemorrhages. Carotid pulses normal bilaterally, no bruits to auscultation. Gait and station normal. Patient exhibits normal muscle strength and tone for all 4 limbs. No atrophy. No abnormal movements observed. Results & Data Vital Signs (Past 12 Hours) Vital Signs Temp Pulse Pulse Resp BP BP Pulse Ox 09/03/19 11:24 36.6 C 71 18 118/76 96 09/03/19 08:00 60 09/03/19 07:17 36.4 C L 63 18 120/73 98 09/03/19 04:34 36.6 C 75 18 113/71 97 09/02/19 23:36 36.7 C 67 20 107/69 97 Laboratory Results WBC 6.13, hemoglobin 14.3, hematocrit 42.5, platelet count 235, sodium 141, potassium 3.6, BUN 14, creatinine 0.93, glucose 98, triglycerides 115, cholesterol 122, LDL 59, VLDL 23, HDL [address] of the head completed yesterday is negative for hemorrhage or acute process. I reviewed the images as well as the radiologist's interpretation of this test. A CT angiogram of the head is negative for significant stenosis, occlusion, or aneurysm. A CT angiogram of the neck is negative for stenosis or dissection within the major vessels of the neck. There is mild to moderate atherosclerotic plaque within the proximal bilateral internal carotid arteries. An MRI of the brain is negative for acute or subacute infarct. No significant abnormalities. I reviewed the images as well as the radiologist interpretation of this test. MRI of the cervical and lumbar spine were also completed. There is mild spinal stenosis at C4-5 and C6-7. There is mild to moderate spinal stenosis at L3-4. An echocardiogram completed yesterday reveals top normal left ventricular size with mildly reduced systolic function, ejection fraction 45 to 50%, mild global hypokinesia's. There is septal motion consistent with prior cardiac surgery. No left ventricular hypertrophy. No visualized ASD or PFO. An electrocardiogram reveals a normal sinus rhythm, 69 bpm. Coding Level of Care Code 68247 Inpt Consult Level 5 Diagnoses TIA (transient ischemic attack) G45.9 Basilar migraine G43.109
[2019-09-03] MEDS ORDERED: STROKE PATIENT DISCHARGE STA (13:15)
[2019-09-03 13:24] VITALS: BP 113/71; PULSE 77
--- NOTE | 2019-09-03 16:39 | Discharge Summary ---
Date of Service September 03, 2019 Admission HPI Per Admitting Provider This is a 59-year-old male with past medical history of coronary artery disease, status post CABG and paroxysmal atrial fibrillation that presents today complaining of left lower extremity weakness and vertigo. Patient is a very good historian accompanied by his . 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 He was doing well and continue on his route. He had stopped at the bank and was having conversation with an employee there. He had a sudden onset of vertigo with some pain in his posterior head radiating into his cervical area. He went to walk and noticed that his left leg was numb and somewhat weak. 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 He drove to a secluded area. He walked around today and noticed that his leg still remains significantly down. This numbness extended up into the hip region. At the other leg was not effective. Patient had no visual disturbances nor did have any speech disturbance. His upper extremity is not affected either although he does note he has some chronic tendinitis in the left shoulder currently is now back. 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 He drove his own personal vehicle to the emergency room for further evaluation. Symptoms started around 10 in the morning. He arrived emergency room approximately an hour later. After being taken, he noted that the symptoms started to resolve significantly. The pain in his neck and resolved and his leg was no longer completely numb. He does note some residual numbness in the sole of his left foot but he thinks that even that is starting to resolve. Patient denies any chest pain, numbness of breath, palpitations, or other issues. He does tell me he has a history of atrial fibrillation that occurred around the time of his CABG but he has never had any symptoms and is always been in normal sinus rhythm when checked. Monitor today also shows normal sinus rhythm. Principal Diagnosis TIA vs. complex migraine Discharge Exam Constitutional WD/WN, vitals as above Eyes EOM intact bilaterally; no conjunctival abnormality ENMT external ear and nose normal, oropharynx normal Neck trachea midline, no thyromegaly normal visual inspection Respiratory normal respiratory effort, lungs clear to auscultation no respiratory distress Cardiovascular RRR, no murmur, no edema Gastrointestinal (Abdomen) Inspection/Auscultation: abdomen normal to inspection; abdomen not distended Musculoskeletal no cyanosis or clubbing, extremities motor strength 5/5 Skin no rashes, warm and dry Neurologic moves all extremities and awake Psychiatric Orientation: alert, oriented to person and cooperative Discharge Data Allergies Allergy/AdvReac Type Severity Reaction Status Date / Time No Known Allergies Allergy Mild NONE Unverified 08/09/18 15:33 Consultations 09/02/19 12:32 ED Decision to Admit Stat 09/02/19 14:43 Consult Cardiology Routine Consult Case Management - Discharge Planning Routine Consult Neurology Routine Ordered Studies 09/02/19 11:15 CT angio head w con Stat CT angio neck with con Stat CT head/brain wo con Stat 09/02/19 14:43 MR brain wo/w con Routine MR cervical spine wo con Routine MR lumbar spine wo con Routine Hospital Course (1) TIA (transient ischemic attack): Findings were concerning for TIA. Symptoms had mostly resolved and patient was not a TPA candidate. Could also be a complex migraine, though different than his usual migraines. - MRI did not show any stroke, and he had minimal vascular disease on his head/neck CTA. Seen by neurology with recommendation to continue current medication regimen. - Started on topiramate as a migraine prophylaxis drug as he has about 1 migraine a week. - Will follow up with Dr. Prasad in the clinic in 1-2 months. (2) CAD (coronary artery disease): Patient is on low-dose aspirin as noted along with a statin, will continue both these. He is also on metoprolol which we will continue as well. (3) PAF (paroxysmal atrial fibrillation): Patient had a lone episode of atrial fibrillation and tells me he has has not had a recurrence. Patient follows with Dr. Rachel. Echo showed no PFO or atrial defect. - Plan for 30-day event monitor as outpatient. Ordered prior to discharge. Total Time Total Time Spent Total Time Spent (In Minutes): 35 Discharge Plan Discharge Items Patient Disposition: Home - Self-Care Reason For Visit: TIA Discharge Diagnosis: Possibly a TIA vs. a complex migraine Activity: Resume your previous activity Non-emergency contact: Primary Care Provider and Neurologist Call non-emergency contact if: your symptoms worsen Follow-up/Referrals: Vu Prasad MD [Physician] - (Please follow up with Dr. Prasad in 1-2 months.) Fabricio Vogt DO [Primary Care Provider] - (Please call your primary care office to see if they want you to make a follow up appointment.) Ace Rachel, DO [Physician] - (Please see Dr. Rachel in 1-2 months.) Diet: Heart Healthy Addtl Attending Provider Instructions: You were admitted for symptoms concern for a TIA or "mini-stroke." The symptoms came and went fairly quickly, and there were no residual symptoms. Fortunately, you did not have a stroke. Our MRIs did not show any sign of stroke or any blockage that needs surgery or anything like that. You are already on a good regimen to prevent any stroke, so continue with your baby aspirin (81 mg) and cholesterol medication. This could also have been a complex migraine (a migraine with other neurologic symptoms). Dr. Vu Prasad recommended a medication to help prevent migraines (called a migraine prophylaxis drug) called topiramate. We will start a low dose, and if it is effective, Dr. Prasad can work with you on adjusting the dose as needed. Please see him in 1-2 months once the coronavirus has hopefully been contained. Finally, Dr. Ace Rachel would like you to do a 30-day event monitor that will make sure you're not going into and out of atrial fibrillation. This is a risk factor for having a stroke and would alter the medications you need to be on. The device will be mailed to you, and Dr. Rachel will follow up with the results. Pending Studies at Discharge: No Stand-Alone Forms: Medications to Prevent Stroke, [facility] [employer], Work/School Release (Inpt), Smoking Cessation Medications and DC Order Prescriptions: New topiramate 25 mg tablet 25 mg PO BID Qty: 60 RF: 1 Continued atorvastatin 20 mg tablet 20 mg PO HS RF: 0 aspirin [Aspirin Low Dose] 81 mg Tablet,Delayed Release (Dr/Ec) 81 mg PO DAILY RF: 0 acetaminophen 500 mg Tablet 1,000 mg PO Q8H RF: 0 metoprolol tartrate 25 mg tablet 12.5 mg PO BID RF: 0 ibuprofen 200 mg Capsule 400 mg PO Q6H PRN (Reason: Pain) RF: 0 amlodipine [Norvasc] 2.5 mg Tablet 2.5 mg PO DAILY RF: 0 Discharge Orders: Discharge Order (Routine); Ordered 09/03/19 Ordered By: Cheko Khan Admission Data Admit Date/Time: 09/02/19 13:46 Attending Provider: Cheko Khan Admit Provider: Zan Valente Primary Care Provider: Fabricio Vogt Other Providers: Ace Rachel ; Ashley Caballero ; Cheko Khan Other Interventions: Discharge Summary Assessment (RN) Last Done: 09/03/19 13:39 DC Date/Time DO NOT enter until pt leaves facility: 09/03/19 14:21 Coding Level of Care Code 93463 OBS Care - Discharge Diagnoses TIA (transient ischemic attack) G45.9 CAD (coronary artery disease) I25.10 PAF (paroxysmal atrial fibrillation) I48.0
== END 2019-09-03 14:21 | disposition home or self-care (01) ==
LOC: 2N 10:50 → ED 10:50 → SUATTDRO 13:46 → 2N 14:20

== ENCOUNTER 2020-08-25 00:24 | Observation (INO) ==
[2020-08-25] MEDS ORDERED: NITROGLYCERIN 2% OINTMENT 30GM TUBE EXT STA (00:36)
[2020-08-25] MEDS ORDERED: SODIUM CHLORIDE 0.9% 1000ML 1,000 ML IV STA (00:36)
[2020-08-25 00:44] LABS: Basophils # (auto) 0.03 K/uL (0-0.2); Basophils % (auto) 0.3 %; Eosinophils # (auto) 0.48 K/uL (0-0.5); Eosinophils % (auto) 5.4 %; Hematocrit (blood only) 44.7 % (42-52); Hemoglobin 15.4 g/dL (14.0-18.0); Immature Granulocytes # (auto) 0.02 K/uL (0.00-0.02); Immature Granulocytes % (auto) 0.2 %; Lymphocytes # (auto) 3.64 K/uL (1.2-3.4); Lymphocytes % (auto) 40.8 %; Mean Corpuscular Hemoglobin 29.4 pg (25-34); Mean Corpuscular Hgb Conc 34.5 g/dL (32-36); Mean Corpuscular Volume 85.5 fL (80-100); Monocytes # (auto) 0.58 K/uL (0.11-0.59); Monocytes % (auto) 6.5 %; Neutrophils # (auto) 4.18 K/uL (1.4-6.5); Neutrophils % (auto) 46.8 %; Platelet Count 303 K/uL (130-400); RDW Coefficient of Variation 12.4 % (11.5-14.5); RDW Standard Deviation 38.7 fL (36.4-46.3); Red Blood Count 5.23 M/uL (4.7-6.1); White Blood Count 8.93 K/uL (4.8-10.8)
--- NOTE | 2020-08-25 01:00 | Emergency Department Note ---
Impression & Plan Left-sided chest pain ED Provider Note INFORMANT: Patient ED PROVIDER(S): Telly Darden MD CHIEF COMPLAINT: Left-sided chest pain PLAN: Disposition: Admitted Condition: Good Outpatient prescription management: none Referral: None MEDICAL DECISION MAKING: Patient presented to the emergency department complaining of left-sided chest pain. His symptoms were concerning. He had transient hypotension for EMS. There was a subtle change in V2 on his EKG but there was no reciprocal changes. When he presented to the ER he was feeling better and his ECG was normal. Chest x-ray did not reveal any acute findings. Patient was moderately hypertensive. He had Nitropaste applied. His CBC and chemistry panel was unremarkable. On reassessment the patient was feeling better. His troponin was negative. In light of his history further management in the hospital will be necessary. Consultation was made with Dr. Addy Keane of the [facility] service. Patient was evaluated in the ER for further management. Triage Nursing notes reviewed and agree them. Additional history obtained from EMS Vital Signs: reviewed and remarkable for hypertension Differential diagnosis: Cardiac ischemia, aortic dissection, pulmonary embolism, pneumothorax, pneumonia, pericarditis, myocarditis, esophageal rupture, GERD, cholecystitis, pancreatitis, musculoskeletal, as well as other pathologies. Diagnostics interpreted by me: ECG: Rate: 78 Rhythm:Normal sinus [place]:Normal QRS:Normal ST segements:No elevation or depression Other:No PACs or PVCs Cardiac Monitoring: Cardiac monitoring ordered by me: The patient was placed on continuous cardiac monitoring and observed. It revealed a normal sinus rhythm at 76 beats per minute without ectopy or evidence of dysrhythmia. Imaging studies: Chest x-ray. Findings: A chest x-ray was performed and revealed no pneumothorax, effusion, infiltrate, pulmonary edema, free air under the diaphragm, or wide mediastinum. Impression: No acute disease. [facility]PI: The patient is a 60 year old male who presents to the Emergency Room with complaints of left-sided chest pain. This started 10:00 this evening and is improved. The patient also notes the following associated symptoms, transient nausea and feeling mildly short of breath at the time of peak pain. The patient has took aspirin for relieving factors. Current pain is rated as 3/10. Patient states pain at its peak was 8/10. He was concerned as he has a cardiac history including cardiac bypass. On transport to the ER the patient had some nausea and blood his blood pressure dropped to 80 systolic. EMS noted that he had some slight elevation of V2 on his ECG totaling about 1.7 mm. This then resolved. His blood pressure improved. He did receive 250 mL of normal saline. Pt denies LOC, headache, fevers, chills, diaphoresis, visual changes, neck pain, breathing difficulties, nausea, vomiting, abdominal pain, back pain, melena, hematochezia, urinary symptoms, numbness, weakness, lymphadenopathy, rash, or other complaints. ROS: See above HPI for pertinent positives & negatives. A total of 10 systems reviewed and were otherwise negative. PAST MEDICAL HISTORY:See Below , CAD PAST SURGICAL HISTORY:See Below, CABG FAMILY HISTORY:See Below SOCIAL HISTORY:See Below, non-smoker HOME MEDICATIONS:See Below ALLERGIES:See Below VITALS:See Below PHYSICAL EXAMINATION: GENERAL: Awake, alert, well-appearing, in no distress HENT: Normocephalic, atraumatic. Oropharynx unremarkable. EYES: Normal conjunctiva. Sclera non-icteric. NECK: Inspection normal. Non-tender. Supple. No nuchal rigidity. FROM. No masses. RESPIRATORY: Clear to auscultation. No wheezes. No rales. Normal respiratory effort. CARDIAC: Normal rate. Normal rhythm. No murmurs. No rubs. Extremities warm and well perfused. Pulses equal. No JVD. GI: Soft, non-distended. No tenderness to palpation. No rebound or guarding. No masses. RECTAL: Deferred. MUSCULOSKELETAL: Atraumatic. Chest examination reveals no tenderness. The back is symmetrical on inspection without obvious abnormality. There is no CVA tenderness to palpation. No joint edema. LOWER EXTREMITIES: Calves are equal size bilaterally and non-tender. No edema. No discoloration. NEURO: Normal sensorium. No sensory or motor deficits noted. SKIN: No rash or jaundice noted. Telly Darden MD Past Med/Surg History Medical History (Updated 08/25/20 @ 00:56 by Telly Darden MD) Dyslipidemia HTN (hypertension) Right foot pain Family History Sister , age 58 Myocardial infarction Uncle , age 60 Myocardial infarction Other Cancer Hypertension Social History Smoking Status: Former smoker Second Hand Exposure: No; Hx Alcohol Use: Yes Alcohol type: beer Hx Substance Use: No Preferred Language: Czech Communication Ability: Effective [employer] Required: No Beliefs That Will Affect Care: None marital status: Current Living Situation: Spouse Feels Safe at Home: Yes Assistive Devices: None Allergies Allergies Allergy/AdvReac Type Severity Reaction Status Date / Time No Known Allergies Allergy Mild NONE Unverified 08/25/20 01:17 Home Meds Home Medications Medication Instructions Recorded Confirmed aspirin [Aspirin Low Dose] 81 mg PO DAILY 08/17/18 08/25/20 ibuprofen 400 mg PO Q6H PRN 08/17/18 08/25/20 metoprolol tartrate 37.5 mg PO BID 08/17/18 08/25/20 rosuvastatin 20 mg PO DAILY 08/25/20 08/25/20 Results & Data (ED) Vital Signs Vital Signs - 24 hr 08/25/20 00:29 08/25/20 00:52 Pulse Rate 76 Respiratory Rate 14 Respiratory Depth Normal Blood Pressure 170/87 H Blood Pressure Mean 114 Pulse Oximetry 95 96 Oxygen Delivery Method Room Air Room Air Sepsis Recent Fever Within 48 Hours No Sepsis New/Unexplained Change in Mental Status No Sepsis Action Taken by Nursing No Action Required Laboratory Data Result diagrams: 08/25/20 00:30 08/25/20 00:30 Lab Results 08/25/20 08/25/20 Range/Units 00:30 00:30 WBC 8.93 (4.8-10.8) K/uL RBC 5.23 (4.7-6.1) M/uL Hgb 15.4 (14.0-18.0) g/dL Hct 44.7 (42-52) % MCV 85.5 (80-100) fL MCH 29.4 (25-34) pg MCHC 34.5 (32-36) g/dL RDW Std Deviation 38.7 (36.4-46.3) fL RDW Coeff of Andrew 12.4 (11.5-14.5) % Plt Count 303 (130-400) K/uL MPV 10.0 (7.4-10.4) fL Immature Gran % (Auto) 0.2 % Neut % (Auto) 46.8 % Lymph % (Auto) 40.8 % [place] % (Auto) 6.5 % Eos % (Auto) 5.4 % Baso % (Auto) 0.3 % Neut # (Auto) 4.18 (1.4-6.5) K/uL Lymph # (Auto) 3.64 H (1.2-3.4) K/uL [place] # (Auto) 0.58 (0.11-0.59) K/uL Eos # (Auto) 0.48 (0-0.5) K/uL Baso # (Auto) 0.03 (0-0.2) K/uL Immature Gran # (Auto) 0.02 (0.00-0.02) K/uL Sodium 139 (136-145) mmol/L Potassium 3.4 L (3.5-5.1) mmol/L Chloride 106 (98-107) mmol/L Carbon Dioxide 25 (21-32) mmol/L Anion Gap 8.0 (3-11) BUN 21 H (7-18) mg/dl Creatinine 0.94 (0.6-1.4) mg/dl Est Cr Clr Drug Dosing 92.8 ml/min Est GFR ( Amer) 101.0 Est GFR (Non-Af Amer) 87.2 BUN/Creatinine Ratio 21.7 H (10-20) Glucose 121 H (70-99) mg/dl Calcium 9.7 (8.5-10.1) mg/dl Total Bilirubin 0.4 (0.2-1) mg/dl AST 20 (15-37) U/L ALT 28 (12-78) U/L Alkaline Phosphatase 65 (45-117) U/L Troponin I < 0.015 (0-0.045) ng/ml Total Protein 7.6 (6.4-8.2) gm/dl Albumin 3.8 (3.4-5.0) gm/dl Globulin 3.8 (2.5-4.0) gm/dl Albumin/Globulin Ratio 1.0 (0.9-2) Lipase 76 (73-393) U/L Administered Medications Sodium Chloride (Nss 1000ml) 1,000 mls @ 125 mls/hr IV .Q8H STA Stop: 08/25/20 08:35 Last Admin: 08/25/20 00:43 Dose: 125 mls/hr Documented by: [id number] Discontinued Medications Nitroglycerin (Nitroglycerin 2% Ointment 30gm Tube) 0.5 inch EXT NOW STA Stop: 08/25/20 00:37 Last Admin: 08/25/20 00:43 Dose: 0.5 inch Documented by: [id number] Discharge Plan Visit Data Chief Complaint: Chest Pain Stated Complaint: CHEST PAIN/PALPATIONS ED Provider: Telly Darden Discharge Problem: Left-sided chest pain Forms Stand Alone Forms: [facility] Prescriptions Prescriptions: No Action aspirin [Aspirin Low Dose] 81 mg Tablet,Delayed Release (Dr/Ec) 81 mg PO DAILY RF: 0 metoprolol tartrate 25 mg tablet 37.5 mg PO BID RF: 0 ibuprofen 200 mg Capsule 400 mg PO Q6H PRN (Reason: Pain) RF: 0 rosuvastatin 20 mg tablet 20 mg PO DAILY RF: 0
[2020-08-25 01:08] LABS: Alanine Aminotransferase 28 U/L (12-78); Albumin Level 3.8 gm/dl (3.4-5.0); Aspartate Aminotransferase 20 U/L (15-37); BUN Creatinine Ratio 21.7 (10-20); Blood Urea Nitrogen 21 mg/dl (7-18); Calcium 9.7 mg/dl (8.5-10.1); Carbon Dioxide 25 mmol/L (21-32); Chloride 106 mmol/L (98-107); Creatinine Clr Calc Pharmacy 92.8 ml/min; Est GFR (Non-African American) 87.2; Glucose 121 mg/dl (70-99); Lipase 76 U/L (73-393); Potassium 3.4 mmol/L (3.5-5.1); Sodium 139 mmol/L (136-145)
[2020-08-25 01:13] LABS: Alkaline Phosphatase 65 U/L (45-117); Bilirubin,Total 0.4 mg/dl (0.2-1); Globulin 3.8 gm/dl (2.5-4.0); Total Protein 7.6 gm/dl (6.4-8.2); Troponin I < 0.015 ng/ml (0-0.045)
--- NOTE | 2020-08-25 01:55 | History & Physical Report ---
Date of Service August 25, 2020 History of Present Illness Primary Care Provider: Fabricio Vogt DO Allergies Allergy/AdvReac Type Severity Reaction Status Date / Time No Known Allergies Allergy Mild NONE Unverified 08/25/20 01:17 Home Medications Medication Instructions Recorded Confirmed Type aspirin [Aspirin Low Dose] 81 mg PO DAILY 08/17/18 08/25/20 History ibuprofen 400 mg PO Q6H PRN 08/17/18 08/25/20 History metoprolol tartrate 37.5 mg PO BID 08/17/18 08/25/20 History rosuvastatin 20 mg PO DAILY 08/25/20 08/25/20 History Past Med/Surg History Medical History (Updated 08/25/20 @ 00:56 by Telly Darden MD) Dyslipidemia HTN (hypertension) Right foot pain Family History Sister , age 58 Myocardial infarction Uncle , age 60 Myocardial infarction Other Cancer Hypertension Social History Smoking Status: Former smoker Second Hand Exposure: No; Hx Alcohol Use: Yes Alcohol type: beer Hx Substance Use: No Preferred Language: Burmese Communication Ability: Effective [employer]r Required: No Beliefs That Will Affect Care: None marital status: Current Living Situation: Spouse Feels Safe at Home: Yes Assistive Devices: None Results & Data Results & Data ([facility]) Vital Signs (Past 12 Hours) Vital Signs Pulse Resp BP Pulse Ox 08/25/20 00:52 96 08/25/20 00:29 76 14 170/87 H 95
--- NOTE | 2020-08-25 02:24 | History & Physical Report ---
Date of Service August 25, 2020 Assessment & Plan (1) Left-sided chest pain: Left-sided chest pain/CAD/status post CABG/status post mitral valve repair/PAF- The patient will be admitted to telemetry for serial cardiac enzymes, serial EKG's, cardiac rhythm monitoring and a 2-D echocardiogram with Dopplers. Continue aspirin 81 mg daily, metoprolol tartrate 37.5 mg p.o. twice daily. Discontinue use of ibuprofen, as it can interfere with antiplatelet effect of aspirin. Most recent hospitalizations: 08/27/2018-08/18/2018 for chest pain 09/02/2019-09/03/2019 for TIA type symptoms 08/25/2020 today, for chest pain Due to accompanying fatigue and sensation of feeling wiped out and brain fog, will check a Lyme titer. Present on Admission?: Yes (2) PAF (paroxysmal atrial fibrillation): See above Present on Admission?: Yes (3) S/P mitral valve repair: See above Present on Admission?: Yes (4) Hx of CABG: See above Present on Admission?: Yes (5) CAD (coronary artery disease): See above Present on Admission?: Yes (6) Hypokalemia: Potassium 3.4 upon admission. Placing on NSS + KCl 20 mEq 100 mils per hour. Add magnesium level to ED labs, and replace as needed Repeat BMP in a.m. Present on Admission?: Yes (7) Dyslipidemia: Continue rosuvastatin 20 mg daily. Present on Admission?: Yes History of Present Illness Chief Complaint: The patient presents to the emergency department with the complaint of redevelopment of left chest wall pain while at rest earlier in the day today. Primary Care Provider: Fabricio Vogt DO The patient is a 60-year-old male with a past medical history including left foot plantar fasciitis, basilar migraine, strokelike symptoms, TIA, PAF, status post mitral valve repair, pleural effusion, status post CABG, LFTs and CAD. His most recent [facility] admissions: 08/17/2018-08/18/2018 for chest pain, and 09/02/2019-09/03/2023 TIA type symptoms. He presents today, 08/25/2020 with left- sided chest wall discomfort that he has had in the past, and occured when at rest. He also reports that he feels generally fatigued and wiped out. He denies any recent change in usual activities or eating patterns. He has been taking medications as directed. Allergies Allergy/AdvReac Type Severity Reaction Status Date / Time No Known Allergies Allergy Mild NONE Unverified 08/25/20 01:17 Home Medications Medication Instructions Recorded Confirmed Type aspirin [Aspirin Low Dose] 81 mg PO DAILY 08/17/18 08/25/20 History ibuprofen 400 mg PO Q6H PRN 08/17/18 08/25/20 History metoprolol tartrate 37.5 mg PO BID 08/17/18 08/25/20 History rosuvastatin 20 mg PO DAILY 08/25/20 08/25/20 History Past Med/Surg History Medical History (Updated 08/25/20 @ 04:44 by Addy Keane MD) Dyslipidemia HTN (hypertension) Right foot pain Family History Sister , age 58 Myocardial infarction Uncle , age 60 Myocardial infarction Other Cancer Hypertension Social History Smoking Status: Never smoker Second Hand Exposure: No; Do You Dip or Chew Tobacco: No; Hx Alcohol Use: Yes Alcohol type: beer Hx Substance Use: No Preferred Language: Sami Communication Ability: Effective Access Spec Required: No Beliefs That Will Affect Care: None marital status: Current Living Situation: Spouse Other Information That Helps Us Care for You: No Feels Safe at Home: Yes Safety Concerns: Feels Safe At This Time Assistive Devices: Glasses Review of Systems Review of Systems: The patient denies cough, lower extremity swelling, sore throat, fevers, chills, sweats, nausea, vomiting, diarrhea , constipation, abdominal pain, pelvic pain, blood in urine or stool, dysuria, urinary frequency or urgency, lightheadedness, dizziness, headache, memory loss, loss of consciousness, rash, abnormal bruising or bleeding, imbalance, focal weakness, numbness or tingling in arms or legs, generalized arthralgias or myalgias, back or neck pain, or night sweats. The review of systems is otherwise negative other than for that already noted above, and at least 10 systems have been reviewed. Physical Exam Physical Exam: The patient is awake, alert and oriented 3, well developed and well nourished, normocephalic and atraumatic, lying in bed and in no acute distress. HEENT--PERRL, EOMI, mucous membranes and oropharynx normal. Neck--supple. No JVD. No bruits. Thyroid normal, trachea midline, no adenopathy. Heart--normal S1 and S2. No murmurs, rubs or gallops. Lungs--clear bilaterally, no respiratory distress, no accessory muscle use. Abdomen--normal bowel sounds and soft. Nontender. Nondistended. Extremities--no cyanosis or clubbing. No edema. Dermatologic--normal skin turgor, normal color, no abnormal lymph nodes, no rash. Neurologic--cranial nerves II through XII grossly intact. Rheumatologic--normal range of motion. Psychiatric--mildly anxious Results & Data Results & Data ([facility]) Vital Signs (Past 12 Hours) Vital Signs Pulse Resp BP Pulse Ox 08/25/20 02:00 81 16 125/78 99 08/25/20 01:51 75 22 129/86 98 08/25/20 01:45 68 23 124/75 97 08/25/20 01:30 69 23 134/76 97 08/25/20 01:15 74 21 144/82 H 98 08/25/20 01:00 71 19 150/86 H 97 08/25/20 00:52 96 08/25/20 00:45 74 19 138/91 96 08/25/20 00:40 76 17 98 08/25/20 00:30 78 19 162/83 H 98 08/25/20 00:29 76 14 170/87 H 95 Laboratory Results Laboratory Results WBC 8.93 K/uL (4.8-10.8) 08/25/20 00:30 RBC 5.23 M/uL (4.7-6.1) 08/25/20 00:30 Hgb 15.4 g/dL (14.0-18.0) 08/25/20 00:30 Hct 44.7 % (42-52) 08/25/20 00:30 MCV 85.5 fL (80-100) 08/25/20 00:30 MCH 29.4 pg (25-34) 08/25/20 00:30 MCHC 34.5 g/dL (32-36) 08/25/20 00:30 RDW Std Deviation 38.7 fL (36.4-46.3) 08/25/20 00:30 RDW Coeff of Andrew 12.4 % (11.5-14.5) 08/25/20 00:30 Plt Count 303 K/uL (130-400) 08/25/20 00:30 MPV 10.0 fL (7.4-10.4) 08/25/20 00:30 Immature Gran % (Auto) 0.2 % 08/25/20 00:30 Neut % (Auto) 46.8 % 08/25/20 00:30 Lymph % (Auto) 40.8 % 08/25/20 00:30 [place] % (Auto) 6.5 % 08/25/20 00:30 Eos % (Auto) 5.4 % 08/25/20 00:30 Baso % (Auto) 0.3 % 08/25/20 00:30 Neut # (Auto) 4.18 K/uL (1.4-6.5) 08/25/20 00:30 Lymph # (Auto) 3.64 K/uL (1.2-3.4) H 08/25/20 00:30 [place] # (Auto) 0.58 K/uL (0.11-0.59) 08/25/20 00:30 Eos # (Auto) 0.48 K/uL (0-0.5) 08/25/20 00:30 Baso # (Auto) 0.03 K/uL (0-0.2) 08/25/20 00:30 Immature Gran # (Auto) 0.02 K/uL (0.00-0.02) 08/25/20 00:30 Sodium 139 mmol/L (136-145) 08/25/20 00:30 Potassium 3.4 mmol/L (3.5-5.1) L 08/25/20 00:30 Chloride 106 mmol/L (98-107) 08/25/20 00:30 Carbon Dioxide 25 mmol/L (21-32) 08/25/20 00:30 Anion Gap 8.0 (3-11) 08/25/20 00:30 BUN 21 mg/dl (7-18) H 08/25/20 00:30 Creatinine 0.94 mg/dl (0.6-1.4) 08/25/20 00:30 Est Cr Clr Drug Dosing 92.8 ml/min 08/25/20 00:30 Est GFR ( Amer) 101.0 08/25/20 00:30 Est GFR (Non-Af Amer) 87.2 08/25/20 00:30 BUN/Creatinine Ratio 21.7 (10-20) H 08/25/20 00:30 Glucose 121 mg/dl (70-99) H 08/25/20 00:30 Calcium 9.7 mg/dl (8.5-10.1) 08/25/20 00:30 Magnesium 2.1 mg/dl (1.8-2.4) 08/25/20 00:30 Total Bilirubin 0.4 mg/dl (0.2-1) 08/25/20 00:30 AST 20 U/L (15-37) 08/25/20 00:30 ALT 28 U/L (12-78) 08/25/20 00:30 Alkaline Phosphatase 65 U/L (45-117) 08/25/20 00:30 Troponin I < 0.015 ng/ml (0-0.045) 08/25/20 00:30 Total Protein 7.6 gm/dl (6.4-8.2) 08/25/20 00:30 Albumin 3.8 gm/dl (3.4-5.0) 08/25/20 00:30 Globulin 3.8 gm/dl (2.5-4.0) 08/25/20 00:30 Albumin/Globulin Ratio 1.0 (0.9-2) 08/25/20 00:30 Lipase 76 U/L (73-393) 08/25/20 00:30 Lyme Disease IgG Ab Negative (Negative) 08/25/20 00:30 Lyme Disease IgM Ab Negative (Negative) 08/25/20 00:30 COVID-19 Eval Order Covid19 IDNow [facility] 08/25/20 01:50 SARS-CoV-2, RNA, NAAT NEGATIVE (NEGATIVE) 08/25/20 01:50 Code Status & VTE Plan Code Status Full code VTE Prophylaxis Plan VTE Prophylaxis will be ordered: Yes PG Care Time/CCT Total # of Minutes Spent Total Time Spent with Patient: Total time spent is greater than 50% in coordination of care (as documented) at patient's floor/unit and/or counseling patient: Coding Level of Care Code 40771 OBS Care - Level 3 Diagnoses Left-sided chest pain R07.9 PAF (paroxysmal atrial fibrillation) I48.0 S/P mitral valve repair Z98.890 Hx of CABG Z95.1 CAD (coronary artery disease) I25.10 Hypokalemia E87.6 Dyslipidemia E78.5
[2020-08-25 02:49] LABS: Magnesium 2.1 mg/dl (1.8-2.4)
[2020-08-25 03:05] LABS: Lyme Ab IgG w/WB Rflx Negative (Negative); Lyme Ab IgM w/WB Rflx Negative (Negative)
[2020-08-25] MEDS ORDERED: ACETAMINOPHEN 325 MG TAB PO PRN (04:44)
[2020-08-25] MEDS ORDERED: ONDANSETRON INJ 2 MG/ML 2 ML VIAL IV PRN (04:44)
[2020-08-25] MEDS ORDERED: NSS + 20MEQ KCL 20 MEQ/1,000 ML BAG IV SCH (05:00)
--- NOTE | 2020-08-25 07:27 | XRay Report ---
XR chest 1V portable CLINICAL HISTORY: Atypical chest pain COMPARISON STUDY: 02/02/2020 FINDINGS: There are postsurgical changes of midline sternotomy and valvular replacement. There is no focal pulmonary consolidation. There are no pleural effusions. There is no failure.[ IMPRESSION: No active disease in the chest. ACT 112: Negative or not required by law. Electronically signed by: Alli Weldon M.D. 08/25/2020 7:25 AM
[2020-08-25] MEDS ORDERED: ROSUVASTATIN CALCIUM 20 MG TAB PO SCH (09:00)
[2020-08-25] MEDS: ASPIRIN 81 MG ECTAB PO SCH (09:01)
--- NOTE | 2020-08-25 09:26 | XCELERA ---
[id number]
[2020-08-25] MEDS: METOPROLOL TARTRATE 25 MG TAB PO SCH ×2 (10:17→20:43)
[2020-08-25 12:03] LABS: Basophils # (auto) 0.01 K/uL (0-0.2); Basophils % (auto) 0.1 %; Eosinophils # (auto) 0.17 K/uL (0-0.5); Hemoglobin 14.5 g/dL (14.0-18.0); Immature Granulocytes # (auto) 0.01 K/uL (0.00-0.02); Immature Granulocytes % (auto) 0.1 %; Lymphocytes # (auto) 1.86 K/uL (1.2-3.4); Lymphocytes % (auto) 22.2 %; Mean Corpuscular Hemoglobin 29.5 pg (25-34); Mean Corpuscular Hgb Conc 34.5 g/dL (32-36); Mean Corpuscular Volume 85.4 fL (80-100); Mean Platelet Volume 9.6 fL (7.4-10.4); Monocytes # (auto) 0.48 K/uL (0.11-0.59); Monocytes % (auto) 5.7 %; Neutrophils # (auto) 5.86 K/uL (1.4-6.5); Neutrophils % (auto) 69.9 %; Platelet Count 295 K/uL (130-400); RDW Coefficient of Variation 12.6 % (11.5-14.5); RDW Standard Deviation 39.6 fL (36.4-46.3); Red Blood Count 4.92 M/uL (4.7-6.1); White Blood Count 8.39 K/uL (4.8-10.8)
[2020-08-25 12:28] LABS: C Reactive Protein < 0.29 mg/dl (0-0.29); Troponin I < 0.015 ng/ml (0-0.045)
--- NOTE | 2020-08-25 14:12 | Electrocardiogram Report ---
Test Reason : Blood Pressure : / mmHG Vent. Rate : 078 BPM Atrial Rate : 078 BPM P-R Int : 186 ms QRS Dur : 100 ms QT Int : 394 ms P-R-T Axes : 049 048 044 degrees QTc Int : 449 ms Normal sinus rhythm Normal ECG When compared with ECG of 02-SEP-2019 11:11, No significant change was found Confirmed by Geoff Harp ([id number]) on 08/25/2020 2:11:51 PM Referred By: REFERRED SELF Confirmed By:Geoff Harp
[2020-08-25 14:56] LABS: Influenza A virus by PCR Negative (Neg); Influenza B virus by PCR Negative (Neg); RSV by PCR Negative (Neg); SARS CoV2 RNA(COVID-19) InHosp NEGATIVE (Negative)
[2020-08-25] MEDS: ROSUVASTATIN CALCIUM 20 MG TAB PO SCH (19:44)
--- NOTE | 2020-08-25 20:00 | Hospitalist Progress Note ---
Date of Service August 25, 2020 Assessment & Plan (1) Viral syndrome: Lymphocytosis on admission CBC w/ diff, chills, nausea, aches, fatigue - all suggestive of viral process. Tick-borne disease also possible but less likely. Initial COVID neg. Repeated COVID w/ flu and RSV - again negative. Lyme screen neg. u/a not done - will obtain, although no UTI symptoms. Checked sed rate, crp, procal - all negative, c/w viral process. Obtain blood cx's to be complete. Repeat cxr in am. Repeat EKG in am. Supportive care. (2) Left-sided chest pain: Trops neg x 3. Echo with normal LV wall motion. Pain is fairly continuous and most c/w his chronic musculoskeletal chest pain - likely scar tissue from prior CABG. 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 EKG w/o ischemic changes. Tele wnl. Likely NOT ischemic. No plans for stress test at this time. Dr Rachel aware. (3) PAF (paroxysmal atrial fibrillation): NSR since admission. Continue metoprolol. (4) S/P mitral valve repair: noted only mild MR on echo today (5) Hx of CABG: noted [place] [facility] [place]essel (6) CAD (coronary artery disease): see above in "chest pain" cont asa, BB, statin (7) Hypokalemia: replaced and resolved (8) Dyslipidemia: Continue rosuvastatin 20 mg daily extensively updated at bedside anticipate d/c home in am - will observe for any worsening infectious symptoms Admission and Anticipated Discharge Date Admission Date: August 25, 2020 Subjective patient with acute onset chills, headache, muscle aches, fatigue, and simply feeling poorly yesterday many of these symptoms are better today but still very tired, achy eyes irritated no mouth sores, sore throat, ear pain, cough minimal left-sided chest discomfort - similar to his chronic pain he has over the left chest since CABG 2 years ago no pleurisy not worsened by laying flat good appetite no tick bites 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, walking 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 each day w/o cp or dyspnea no travels no sick contacts COVID vaccine x 2 doses Review of Systems Constitutional: + fatigue and + weakness; no sweats and no anorexia Eyes: no discharge Ear, Nose, Mouth, Throat: no nasal congestion, no sore throat and no dysphagia Respiratory: no cough, no dyspnea on exertion and no wheezing Cardiovascular: as per Subjective / HPI; no orthopnea and no edema Gastrointestinal: + nausea; no vomiting and no diarrhea/loose stools Genitourinary: no dysuria Integumentary: no rash Physical Exam Constitutional: well developed, well nourished and + ill appearing (mild); no acute distress and no altered mental status Eyes: + conjunctival abnormality (injected, but no discharge b/l ) ENMT: external ear and nose normal, oropharynx normal Respiratory: normal respiratory effort, lungs clear to auscultation Cardiovascular: Rate/Rhythm: regular rate and regular rhythm Heart Sounds: normal S1 and normal S2; no murmur Vessels: posterior tibial pulses present, dorsalis pedis pulses present and radial pulses present; no JVD Extremities: no edema Chest (Breasts): Additional Comments: no tenderness to palpation Gastrointestinal (Abdomen): normal bowel sounds, soft, nontender, no hepatosplenomegaly Skin: no rashes, warm and dry Psychiatric: A+Ox3, euthymic affect Lymphatic: no cervical lymphadenopathy Results & Data Results & Data ([facility]) Vital Signs (Past 12 Hours) Vital Signs Temp Pulse Pulse Resp BP Pulse Ox 08/25/20 16:00 58 L 08/25/20 15:37 36.4 C L 60 18 127/77 96 08/25/20 11:31 36.4 C L 55 L 19 133/75 96 Laboratory Results Laboratory Results - last 24 hr 08/25/20 08/25/20 08/25/20 00:30 00:30 00:30 WBC 8.93 RBC 5.23 Hgb 15.4 Hct 44.7 MCV 85.5 MCH 29.4 MCHC 34.5 RDW Std Deviation 38.7 RDW Coeff of Andrew 12.4 Plt Count 303 MPV 10.0 Immature Gran % (Auto) 0.2 Neut % (Auto) 46.8 Lymph % (Auto) 40.8 [place] % (Auto) 6.5 Eos % (Auto) 5.4 Baso % (Auto) 0.3 Neut # (Auto) 4.18 Lymph # (Auto) 3.64 H [place] # (Auto) 0.58 Eos # (Auto) 0.48 Baso # (Auto) 0.03 Immature Gran # (Auto) 0.02 ESR Sodium 139 Potassium 3.4 L Chloride 106 Carbon Dioxide 25 Anion Gap 8.0 BUN 21 H Creatinine 0.94 Est Cr Clr Drug Dosing 92.8 Est GFR ( Amer) 101.0 Est GFR (Non-Af Amer) 87.2 BUN/Creatinine Ratio 21.7 H Glucose 121 H Calcium 9.7 Magnesium 2.1 Total Bilirubin 0.4 AST 20 ALT 28 Alkaline Phosphatase 65 Troponin I < 0.015 C-Reactive Protein Total Protein 7.6 Albumin 3.8 Globulin 3.8 Albumin/Globulin Ratio 1.0 Lipase 76 Procalcitonin Lyme Disease IgG Ab Negative Lyme Disease IgM Ab Negative COVID-19 Eval Order SARS-CoV-2 (PCR) Hepatitis C Ab Screen Influenza Type A (PCR) Influenza Type B (PCR) RSV (RT-PCR) SARS-CoV-2, RNA, NAAT 08/25/20 08/25/20 08/25/20 00:30 01:50 01:50 WBC RBC Hgb Hct MCV MCH MCHC RDW Std Deviation RDW Coeff of Andrew Plt Count MPV Immature Gran % (Auto) Neut % (Auto) Lymph % (Auto) [place] % (Auto) Eos % (Auto) Baso % (Auto) Neut # (Auto) Lymph # (Auto) [place] # (Auto) Eos # (Auto) Baso # (Auto) Immature Gran # (Auto) ESR Sodium Potassium Chloride Carbon Dioxide Anion Gap BUN Creatinine Est Cr Clr Drug Dosing Est GFR ( Amer) Est GFR (Non-Af Amer) BUN/Creatinine Ratio Glucose Calcium Magnesium Total Bilirubin AST ALT Alkaline Phosphatase Troponin I C-Reactive Protein Total Protein Albumin Globulin Albumin/Globulin Ratio Lipase Procalcitonin Lyme Disease IgG Ab Lyme Disease IgM Ab COVID-19 Eval [facility] [place] SARS-CoV-2 (PCR) Hepatitis C Ab Screen Neg Influenza Type A (PCR) Influenza Type B (PCR) RSV (RT-PCR) SARS-CoV-2, RNA, NAAT NEGATIVE 08/25/20 08/25/20 08/25/20 06:34 11:53 11:53 WBC 8.39 RBC 4.92 Hgb 14.5 Hct 42.0 MCV 85.4 MCH 29.5 MCHC 34.5 RDW Std Deviation 39.6 RDW Coeff of Andrew 12.6 Plt Count 295 MPV 9.6 Immature Gran % (Auto) 0.1 Neut % (Auto) 69.9 Lymph % (Auto) 22.2 [place] % (Auto) 5.7 Eos % (Auto) 2.0 Baso % (Auto) 0.1 Neut # (Auto) 5.86 Lymph # (Auto) 1.86 [place] # (Auto) 0.48 Eos # (Auto) 0.17 Baso # (Auto) 0.01 Immature Gran # (Auto) 0.01 ESR Sodium Potassium 4.0 D Chloride Carbon Dioxide Anion Gap BUN Creatinine Est Cr Clr Drug Dosing Est GFR ( Amer) Est GFR (Non-Af Amer) BUN/Creatinine Ratio Glucose Calcium Magnesium Total Bilirubin AST ALT Alkaline Phosphatase Troponin I < 0.015 < 0.015 C-Reactive Protein < 0.29 Total Protein Albumin Globulin Albumin/Globulin Ratio Lipase Procalcitonin Lyme Disease IgG Ab Lyme Disease IgM Ab COVID-19 Eval Order SARS-CoV-2 (PCR) Hepatitis C Ab Screen Influenza Type A (PCR) Influenza Type B (PCR) RSV (RT-PCR) SARS-CoV-2, RNA, NAAT 08/25/20 08/25/20 08/25/20 11:53 11:53 Unknown WBC RBC Hgb Hct MCV MCH MCHC RDW Std Deviation RDW Coeff of Andrew Plt Count MPV Immature Gran % (Auto) Neut % (Auto) Lymph % (Auto) [place] % (Auto) Eos % (Auto) Baso % (Auto) Neut # (Auto) Lymph # (Auto) [place] # (Auto) Eos # (Auto) Baso # (Auto) Immature Gran # (Auto) ESR 15 H Sodium Potassium Chloride Carbon Dioxide Anion Gap BUN Creatinine Est Cr Clr Drug Dosing Est GFR ( Amer) Est GFR (Non-Af Amer) BUN/Creatinine Ratio Glucose Calcium Magnesium Total Bilirubin AST ALT Alkaline Phosphatase Troponin I C-Reactive Protein Total Protein Albumin Globulin Albumin/Globulin Ratio Lipase Procalcitonin < 0.05 Lyme Disease IgG Ab Lyme Disease IgM Ab COVID-19 Eval Order CovFluRsv at [facility] SARS-CoV-2 (PCR) Hepatitis C Ab Screen Influenza Type A (PCR) Influenza Type B (PCR) RSV (RT-PCR) SARS-CoV-2, RNA, NAAT 08/25/20 Unknown WBC RBC Hgb Hct MCV MCH MCHC RDW Std Deviation RDW Coeff of Andrew Plt Count MPV Immature Gran % (Auto) Neut % (Auto) Lymph % (Auto) [place] % (Auto) Eos % (Auto) Baso % (Auto) Neut # (Auto) Lymph # (Auto) [place] # (Auto) Eos # (Auto) Baso # (Auto) Immature Gran # (Auto) ESR Sodium Potassium Chloride Carbon Dioxide Anion Gap BUN Creatinine Est Cr Clr Drug Dosing Est GFR ( Amer) Est GFR (Non-Af Amer) BUN/Creatinine Ratio Glucose Calcium Magnesium Total Bilirubin AST ALT Alkaline Phosphatase Troponin I C-Reactive Protein Total Protein Albumin Globulin Albumin/Globulin Ratio Lipase Procalcitonin Lyme Disease IgG Ab Lyme Disease IgM Ab COVID-19 Eval Order SARS-CoV-2 (PCR) NEGATIVE Hepatitis C Ab Screen Influenza Type A (PCR) Negative Influenza Type B (PCR) Negative RSV (RT-PCR) Negative SARS-CoV-2, RNA, NAAT PG Care Time/CCT Total # of Minutes Spent Total Time Spent with Patient: Total time spent is greater than 50% in coordination of care (as documented) at patient's floor/unit and/or counseling patient: Coding Level of Care Code 45670 Subseq Obs Care Lvl 3 Diagnoses Viral syndrome B34.9 Left-sided chest pain R07.9 PAF (paroxysmal atrial fibrillation) I48.0 S/P mitral valve repair Z98.890 Hx of CABG Z95.1 CAD (coronary artery disease) I25.10 Hypokalemia E87.6 Dyslipidemia E78.5
[2020-08-26 07:20] LABS: Basophils # (auto) 0.03 K/uL (0-0.2); Basophils % (auto) 0.5 %; Eosinophils # (auto) 0.35 K/uL (0-0.5); Eosinophils % (auto) 5.3 %; Hemoglobin 14.8 g/dL (14.0-18.0); Immature Granulocytes # (auto) 0.01 K/uL (0.00-0.02); Immature Granulocytes % (auto) 0.2 %; Lymphocytes # (auto) 2.34 K/uL (1.2-3.4); Lymphocytes % (auto) 35.3 %; Mean Corpuscular Hemoglobin 29.5 pg (25-34); Mean Corpuscular Hgb Conc 34.4 g/dL (32-36); Mean Corpuscular Volume 85.8 fL (80-100); Mean Platelet Volume 9.7 fL (7.4-10.4); Monocytes # (auto) 0.29 K/uL (0.11-0.59); Monocytes % (auto) 4.4 %; Neutrophils # (auto) 3.61 K/uL (1.4-6.5); Neutrophils % (auto) 54.3 %; Platelet Count 282 K/uL (130-400); RDW Coefficient of Variation 12.8 % (11.5-14.5); RDW Standard Deviation 40.5 fL (36.4-46.3); Red Blood Count 5.01 M/uL (4.7-6.1); White Blood Count 6.63 K/uL (4.8-10.8)
[2020-08-26 07:50] LABS: Albumin Level 3.3 gm/dl (3.4-5.0); BUN Creatinine Ratio 16.2 (10-20); Calcium 8.3 mg/dl (8.5-10.1); Creatinine Clr Calc Pharmacy 98.3 ml/min; Est GFR (Non-African American) 93.2; Potassium 4.1 mmol/L (3.5-5.1)
[2020-08-26 07:53] LABS: Albumin Globulin Ratio 0.8 (0.9-2); Bilirubin,Total 0.5 mg/dl (0.2-1); Globulin 3.9 gm/dl (2.5-4.0); Total Protein 7.2 gm/dl (6.4-8.2)
[2020-08-26] MEDS: ASPIRIN 81 MG ECTAB PO SCH (08:01)
[2020-08-26] MEDS: ROSUVASTATIN CALCIUM 20 MG TAB PO SCH ×2 (08:01→08:03)
[2020-08-26] MEDS ORDERED: Nursing to Pharmacy Communication SCH (08:15)
[2020-08-26] MEDS: METOPROLOL TARTRATE 25 MG TAB PO SCH (09:00)
--- NOTE | 2020-08-26 09:04 | XRay Report ---
XR chest 2V PA/lateral HISTORY: 60 years-old Male Chills, chest discomfort; r/o pneumonia acute atypical chest pain COMPARISON: Chest radiograph 08/25/2020 TECHNIQUE: PA and lateral views of the chest FINDINGS: Cardiomediastinal and hilar silhouettes are unchanged. Cardiac valvular prosthesis with prior median sternotomy. No pneumothorax, pleural effusion, airspace consolidation or overt pulmonary edema. The b ones of the chest appear grossly intact. IMPRESSION: No acute process. ACT 112: Negative or not required by law. The above report was generated using voice recognition software. It may contain grammatical, syntax o r spelling errors. Electronically signed by: Christian Garcia M.D. 08/26/2020 9:03 AM
[2020-08-26 10:55] LABS: Appearance Urine Clear (Clear); Bilirubin Urine Negative (Negative); Blood Urine Negative (Negative); Color Urine Yellow; Glucose Urine UA Negative (Negative); Ketones Urine Negative (Negative); Leukocyte Esterase Urine Negative (Negative); Nitrite Urine Negative (Negative); Protein Urine Negative (Negative); Specific Gravity Urine 1.018 (1.000-1.030); Urobilinogen Urine Negative (Negative)
--- NOTE | 2020-08-26 11:34 | Discharge Summary ---
Date of Service date of admission - August 25, 2020 date of discharge - August 26, 2020 Admission HPI Per Admitting Provider The patient is a 60-year-old male with a past medical history including left foot plantar fasciitis, basilar migraine, strokelike symptoms, TIA, PAF, status post mitral valve repair, pleural effusion, status post CABG, LFTs and CAD. His most recent [facility] admissions: 08/17/2018-08/18/2018 for chest pain, and 09/02/2019-09/03/2019 for TIA type symptoms. He presents today with left-sided chest wall discomfort that he has had in the past, and occurred when at rest. He also reports that he feels generally fatigued and wiped out. He denies any recent change in usual activities or eating patterns. He has been taking medications as directed. Principal Diagnosis 1. chest pain - ACS ruled out 2. suspected viral syndrome - COVID x 2 negative Discharge Exam Constitutional well developed, well nourished and + ill appearing (mild but improved from prior exam); no acute distress and no altered mental status Eyes + conjunctival abnormality (injected, but no discharge b/l ) ENMT external ear and nose normal, oropharynx normal Respiratory normal respiratory effort, lungs clear to auscultation Cardiovascular Rate/Rhythm: regular rate and regular rhythm Heart Sounds: normal S1 and normal S2; no murmur Vessels: posterior tibial pulses present, dorsalis pedis pulses present and radial pulses present; no JVD Extremities: no edema Gastrointestinal (Abdomen) normal bowel sounds, soft, nontender, no hepatosplenomegaly Skin no rashes, warm and dry Psychiatric A+Ox3, euthymic affect Lymphatic no cervical lymphadenopathy Discharge Data Allergies Allergy/AdvReac Type Severity Reaction Status Date / Time No Known Allergies Allergy Mild NONE Unverified 08/25/20 01:17 Consultations echocardiogram: * EF 55-60% * no regional wall motion abnormalities * mild mitral regurgitation * mild tricuspid regurgitation * in comparison to 08/2019 echo -- EF has improved Hospital Course (1) Viral syndrome: Lymphocytosis on admission CBC w/ diff, chills, nausea, aches, fatigue - all suggestive of viral process. Tick-borne disease also possible but less likely. Initial COVID neg. Repeated COVID w/ flu and RSV - again negative. Lyme screen neg. u/a normal. sed rate, crp, procal - all negative, c/w viral process rather than bacterial process. blood cultures negative. chest x-ray x 2 negative for infiltrates. Patient's symptoms did improve prior to discharge. He was counseled on reasons to seek out medical attention again post-discharge. (2) Left-sided chest pain: Trops neg x 3. Echo with normal LV wall motion. Pain is fairly continuous and most c/w his chronic musculoskeletal chest pain - likely scar tissue from prior CABG. He has seen and spoken with Dr Rachel, his primary industrial waste inspector, about this. EKG w/o ischemic changes. Tele wnl. Likely NOT ischemic. Stress test not pursued during the admission. No features to suggest pericarditis even though he seemed to have a viral syndrome. I asked him to f/u with his primary industrial waste inspector, Dr Rachel, post-discharge. (3) PAF (paroxysmal atrial fibrillation): NSR during the admission. Continue metoprolol. (4) S/P mitral valve repair: noted only mild MR on echo this admission (5) Hx of CAB - [facility] 2-vessel (6) CAD (coronary artery disease): see above in "chest pain" cont asa, BB, statin (7) Hypokalemia: replaced and resolved (8) Dyslipidemia: Continue rosuvastatin 20 mg daily Total Time Total Time Spent Total Time Spent (In Minutes): 40 Total Time Includes: Examination of the Patient, Discharge Planning, Medication Reconciliation and Communication With Other Providers Discharge Plan Discharge Items Patient Disposition: Home - Self-Care Reason For Visit: Chest Pain, Chills, Fatigue Discharge Diagnosis: 1. Chest pain - no evidence of heart attack. Troponins (blood work for the heart), EKGs, heart monitoring, chest x-rays, and echocardiogram all normal. Likely due to your chronic chest wall discomfort/scar tissue from your open heart surgery. 2. Chills, fatigue, headache, muscle aches, etc - likely brief viral infection/viral syndrome. COVID test x 2 negative. Flu and RSV testing negative. Lyme testing negative. Chest x-rays without pneumonia. Urinalysis with no indication of urinary tract infection. Blood cultures are pending to rule out bacterial infection but highly unlikely. Activity: Resume your previous activity Non-emergency contact: Primary Care Provider and [employer] Call non-emergency contact if: you have any medication questions, your symptoms worsen, your pain is not controlled and you have a fever Follow-up/Referrals: Fabricio Vogt DO [Primary Care Provider] - 08/30/20 10:30 am (see Dr Vogt within 1 week ) Ace Rachel DO [Physician] - (call Dr Rachel's office the next 1-2 weeks if any concerns ) Diet: Heart Healthy Addtl Attending Provider Instructions: Mr Sears, You were admitted to the hospital for the problems listed above in "discharge diagnoses." All of your heart testing was normal thus there was no evidence of heart attack. Your viral symptoms (fatigue, chills, muscle aches, etc) all improved/resolved while here. We did not find evidence of any bacterial infection or lyme disease. We have made no changes in your usual medications. Please do the following - 1. gradually increase your activities this weekend as tolerated. 2. ok to return to work on Friday. 3. please monitor for any worsening chest pain or worsening shortness of breath. If this occurs please seek medical attention in the ER at [facility] or call Dr Rachel's cardiology office le[place]. 4. if you develop recurrent fevers, chills, cough, etc please also seek medical attention. Follow-up - see separate section I enjoyed caring for you and stay well! -Dr Gage Pending Studies at Discharge: Yes Studies:: blood cultures Stand-Alone Forms: My [facility], Smoking Cessation Medications and DC Order Prescriptions: Continued aspirin [Aspirin Low Dose] 81 mg Tablet,Delayed Release (Dr/Ec) 81 mg PO DAILY RF: 0 metoprolol tartrate 25 mg tablet 37.5 mg PO HS RF: 0 ibuprofen 200 mg Capsule 400 mg PO Q6H PRN (Reason: Pain) RF: 0 rosuvastatin 20 mg tablet 20 mg PO DAILY RF: 0 Discharge Orders: Discharge Order (Routine); Ordered 08/26/20 Ordered By: Julio Gage Admission Data Admit Date/Time: 08/25/20 02:22 Attending Provider: Julio Gage Admit Provider: Addy Keane Primary Care Provider: Fabricio Vogt Other Providers: Addy Keane Other Interventions: Discharge Summary Assessment (RN) Last Done: 08/26/20 11:43 Coding Level of Care Code 39256 OBS Care - Discharge Diagnoses Viral syndrome B34.9 Left-sided chest pain R07.9 PAF (paroxysmal atrial fibrillation) I48.0 S/P mitral valve repair Z98.890 Hx of CABG Z95.1 CAD (coronary artery disease) I25.10 Hypokalemia E87.6 Dyslipidemia E78.5
--- NOTE | 2020-08-26 12:14 | Electrocardiogram Report ---
Test Reason : Blood Pressure : / mmHG Vent. Rate : 068 BPM Atrial Rate : 068 BPM P-R Int : 190 ms QRS Dur : 096 ms QT Int : 418 ms P-R-T Axes : 061 052 059 degrees QTc Int : 444 ms Normal sinus rhythm Normal ECG When compared with ECG of 25-AUG-2020 00:25, No significant change was found Confirmed by Yosvany López ([id number]) on 08/26/2020 12:14:19 PM Referred By: REFERRED SELF Confirmed By:Yosvany López
[2020-08-26] MEDS ORDERED: ROSUVASTATIN CALCIUM 20 MG TAB PO SCH (22:00)
== END 2020-08-26 12:00 | disposition home or self-care (01) ==
LOC: ED 00:24 → 2S 00:24 → SUATTDRO 02:22 → 2S 04:10

== ENCOUNTER 2021-01-06 07:44 | Inpatient (IN) ==
[2021-01-06] MEDS ORDERED: SODIUM CHLORIDE 0.9% 500 ML IV SCH (08:00)
[2021-01-06] MEDS ORDERED: dilTIAZem HCl 5 MG/ML 5 ML VIAL IV STA ×2 (08:00→10:29)
[2021-01-06 08:12] LABS: Hematocrit (blood only) 49.3 % (42-52); Hemoglobin 17.1 g/dL (14.0-18.0); Immature Granulocytes # (auto) 0.05 K/uL (0.00-0.02); Immature Granulocytes % (auto) 0.3 %; Lymphocytes # (auto) 1.94 K/uL (1.2-3.4); Lymphocytes % (auto) 10.3 %; Mean Corpuscular Hemoglobin 29.2 pg (25-34); Mean Corpuscular Hgb Conc 34.7 g/dL (32-36); Mean Corpuscular Volume 84.3 fL (80-100); Mean Platelet Volume 10.4 fL (7.4-10.4); Monocytes # (auto) 0.67 K/uL (0.11-0.59); Monocytes % (auto) 3.6 %; Neutrophils # (auto) 16.15 K/uL (1.4-6.5); Neutrophils % (auto) 85.8 %; Platelet Count 334 K/uL (130-400); RDW Coefficient of Variation 13.3 % (11.5-14.5); RDW Standard Deviation 40.8 fL (36.4-46.3); Red Blood Count 5.85 M/uL (4.7-6.1); White Blood Count 18.81 K/uL (4.8-10.8)
--- NOTE | 2021-01-06 08:14 | Emergency Department Note ---
Impression & Plan Atrial fibrillation with rapid ventricular response, Chest pain ED Provider Note NAME: RYAN CORRALES AGE: 60 SEX: M : 1960 ARRIVES VIA: Walk-In INFORMANT: Patient, ED PROVIDER(S): Yosvany Wilson DO CHIEF COMPLAINT: Palpitations HPI: The patient is a 60-year-old male who presented to the emergency department for an evaluation of palpitations. The patient has a history of valve replacement surgery with coronary artery bypass grafting in 2019. He did have one episode of atrial fibrillation prior to the procedure however since that time he had no episodes of atrial fibrillation and does not take anticoagulation. He is on metoprolol and he did take his medications this morning. He denies having any lower extremity swelling or pain. He does complain of some chest pain as well as dyspnea on exertion. He denies having any fever or coughing. He states the symptoms began last evening while he was watching TV. He has not seen his primary care physician for the symptoms. He states his symptoms are worsened with ambulation and relieved somewhat with rest. The patient states his symptoms are moderate at this time. ROS: See above HPI for pertinent positives & negatives. A total of 10 systems reviewed and were otherwise negative. PAST MEDICAL HISTORY: See Below PAST SURGICAL HISTORY: See Below FAMILY HISTORY: See Below SOCIAL HISTORY: See Below HOME MEDICATIONS: See Below ALLERGIES: See Below VITALS: See Below PHYSICAL EXAMINATION: GENERAL: Patient is awake alert in no acute distress patient is resting comfortably and showing no signs of anxiety EYES: The conjunctivae are clear. The pupils are round and reactive. EARS, NOSE, MOUTH AND THROAT: The nose is without any evidence of any deformity. NECK: The neck is nontender and supple. RESPIRATORY: Normal respiratory effort is noted there is no evidence of wheezing rhonchi or rales CARDIOVASCULAR: Tachycardic and irregular heart sounds were noted to auscultation. There is no definite murmur. GASTROINTESTINAL: The abdomen is soft. Abdomen is nontender. MUSCULOSKELETAL/EXTREMITIES: There is no evidence of gross deformity full range of motion is noted in the hips and shoulders. SKIN: There is no obvious evidence of any rash. There are no petechiae, pallor or cyanosis noted. NEUROLOGIC: Patient is awake alert and oriented x3. MEDICAL DECISION MAKING: The patient is a 60-year-old male who presented to the emergency department for an evaluation of chest pain and palpitations. The patient was found to be in atrial fibrillation with RVR. The patient does take beta-blockers. I discussed patient's laboratory and radiographic studies with him. He was treated with IV rate control medications in the emergency department. On subsequent reevaluation he was feeling much better. I discussed the patient's case with the on-call Doctors' Hospitalist. They have agreed to evaluate the patient in the emergency department for further management and disposition. Triage Nursing notes reviewed. Prior medical records reviewed Vital Signs: reviewed and remarkable for tachycardia Differential diagnosis: Cardiac ischemia, aortic dissection, pulmonary embolism, pneumothorax, pneum onia, pericarditis, myocarditis, esophageal rupture, GERD, cholecystitis, pancreatitis, musculoskeletal, as well as other pathologies. ER treatment provided: See below Diagnostics interpreted by me: ECG: EKG was obtained in the emergency department. My interpretation atrial fibrillation with rapid ventricular response at 126 bpm. There was no PVCs. There is no acute ST segment abnormalities noted. This was compared to a tracing from August 262020. Atrial fibrillation has replaced normal sinus rhythm. Cardiac Monitoring: An order was placed for continuous cardiac monitoring. The monitor shows a rate of 85 bpm with atrial fibrillation rhythm. Laboratory studies: As stated above and show below. Imaging studies: See below Consultation(s): 5316: I discussed this case with Dr. Virgen who is on-call for the [facility] hospitalist group. He will evaluate the patient in the emergency department for further management and disposition. Past Med/Surg History Medical History Dyslipidemia HTN (hypertension) Right foot pain Surgical History H/O heart bypass surgery 2018 H/O inguinal hernia repair Repair of left indirect inguinal hernia with mesh 11-01-08 Dr. Carney Family History Sister , age 58 Myocardial infarction Uncle , age 60 Myocardial infarction Mother Cancer Grandmother Hypertension Grandfather Cancer Stroke Social History Smoking Status: Never smoker Second Hand Exposure: No; Hx Alcohol Use: Yes Alcohol type: beer Hx Substance Use: No Preferred Language: Armenian Communication Ability: Effective Panel Beater Required: No Beliefs That Will Affect Care: None marital status: Current Living Situation: Spouse Feels Safe at Home: Yes Assistive Devices: Glasses Allergies Allergies Allergy/AdvReac Type Severity Reaction Status Date / Time omeprazole Allergy Rash Unverified 01/01/21 11:18 Home Meds Home Medications Medication Instructions Recorded Confirmed aspirin 81 mg tablet,delayed 81 mg PO QAM 08/17/18 01/06/21 release (Aspirin Low Dose) ibuprofen 200 mg capsule 400 mg PO Q6H PRN 08/17/18 01/06/21 metoprolol tartrate 25 mg tablet 37.5 mg PO HS 08/17/18 01/06/21 rosuvastatin 20 mg tablet 20 mg PO HS 08/25/20 01/06/21 Results & Data (ED) Vital Signs Vital Signs - 24 hr 01/06/21 07:49 01/06/21 08:00 01/06/21 08:15 Temperature 36.5 C Temperature Source Temporal Artery Scan Pulse Rate 109 H Pulse Rate [Right Finger] Pulse Rhythm Irregular Pulse Rhythm [Right Finger] Irregular Pulse Strength Normal Respiratory Rate 18 17 Respiratory Effort / Characteristics Non-Labored Respiratory Depth Normal Respiratory Pattern Regular Blood Pressure 139/93 Blood Pressure [Left Arm] 146/95 H Blood Pressure Mean 108 Blood Pressure Mean [Left Arm] 112 Blood Pressure Position Sitting Pulse Oximetry 97 97 98 Oxygen Delivery Method Room Air Room Air Sepsis Recent Fever Within 48 Hours Yes Sepsis New/Unexplained Change in Mental Status No Sepsis Action Taken by Nursing No Action Required 01/06/21 08:43 01/06/21 09:06 01/06/21 10:05 Temperature Temperature Source Pulse Rate Pulse Rate [Right Finger] 84 90 88 Pulse Rhythm Pulse Rhythm [Right Finger] Pulse Strength Respiratory Rate 18 18 18 Respiratory Effort / Characteristics Non-Labored Spontaneous Non-Labored Non-Labored Respiratory Depth Normal Normal Normal Respiratory Pattern Blood Pressure Blood Pressure [Left Arm] 146/95 H 135/100 148/91 H Blood Pressure Mean Blood Pressure Mean [Left Arm] 112 111 110 Blood Pressure Position Pulse Oximetry 98 97 97 Oxygen Delivery Method Room Air Room Air Room Air Sepsis Recent Fever Within 48 Hours Sepsis New/Unexplained Change in Mental Status Sepsis Action Taken by [facility]pc Medications Current Medication List: was personally reviewed by me Laboratory Data Attestation: I reviewed the patient's lab results. Result diagrams: 01/06/21 08:00 01/06/21 08:00 Lab Results 01/06/21 01/06/21 01/06/21 Range/Units 08:00 08:00 08:00 WBC 18.81 H (4.8-10.8) K/uL RBC 5.85 (4.7-6.1) M/uL Hgb 17.1 (14.0-18.0) g/dL Hct 49.3 (42-52) % MCV 84.3 (80-100) fL MCH 29.2 (25-34) pg MCHC 34.7 (32-36) g/dL RDW Std Deviation 40.8 (36.4-46.3) fL RDW Coeff of Andrew 13.3 (11.5-14.5) % Plt Count 334 (130-400) K/uL MPV 10.4 (7.4-10.4) fL Immature Gran % (Auto) 0.3 % Neut % (Auto) 85.8 % Lymph % (Auto) 10.3 % Wharton % (Auto) 3.6 % Eos % (Auto) 0.0 % Baso % (Auto) 0.0 % Neut # (Auto) 16.15 H (1.4-6.5) K/uL Lymph # (Auto) 1.94 (1.2-3.4) K/uL Wharton # (Auto) 0.67 H (0.11-0.59) K/uL Eos # (Auto) 0.00 (0-0.5) K/uL Baso # (Auto) 0.00 (0-0.2) K/uL Immature Gran # (Auto) 0.05 H (0.00-0.02) K/uL PT 10.3 (9.0-12.0) Seconds INR 1.0 (0.9-1.1) APTT 25.1 (21.0-31.0) Seconds PTT Ratio 1.0 Sodium 139 (136-145) mmol/L Potassium 3.7 (3.5-5.1) mmol/L Chloride 110 H (98-107) mmol/L Carbon Dioxide 21 (21-32) mmol/L Anion Gap 9.0 (3-11) BUN 21 H (7-18) mg/dl Creatinine 1.01 (0.6-1.4) mg/dl Est Cr Clr Drug Dosing 83.9 ml/min Est GFR ( Amer) 92.6 ml/min Est GFR (Non-Af Amer) 79.9 ml/min BUN/Creatinine Ratio 20.6 H (10-20) Glucose 151 H (70-99) mg/dl Calcium 9.6 (8.5-10.1) mg/dl Magnesium 2.4 (1.8-2.4) mg/dl Total Bilirubin 0.5 (0.2-1) mg/dl AST 26 (15-37) U/L ALT 40 (12-78) U/L Alkaline Phosphatase 69 (45-117) U/L Troponin I < 0.015 (0-0.045) ng/ml Total Protein 8.5 H (6.4-8.2) gm/dl Albumin 3.9 (3.4-5.0) gm/dl Globulin 4.6 H (2.5-4.0) gm/dl Albumin/Globulin Ratio 0.8 L (0.9-2) TSH 0.715 (0.300-4.500) uIu/ml COVID-19 Eval Order SARS-CoV-2 (PCR) (Negative) 01/06/21 01/06/21 Range/Units 08:10 08:10 WBC (4.8-10.8) K/uL RBC (4.7-6.1) M/uL Hgb (14.0-18.0) g/dL Hct (42-52) % MCV (80-100) fL MCH (25-34) pg MCHC (32-36) g/dL RDW Std Deviation (36.4-46.3) fL RDW Coeff of Andrew (11.5-14.5) % Plt Count (130-400) K/uL MPV (7.4-10.4) fL Immature Gran % (Auto) % Neut % (Auto) % Lymph % (Auto) % Wharton % (Auto) % Eos % (Auto) % Baso % (Auto) % Neut # (Auto) (1.4-6.5) K/uL Lymph # (Auto) (1.2-3.4) K/uL Wharton # (Auto) (0.11-0.59) K/uL Eos # (Auto) (0-0.5) K/uL Baso # (Auto) (0-0.2) K/uL Immature Gran # (Auto) (0.00-0.02) K/uL PT (9.0-12.0) Seconds INR (0.9-1.1) APTT (21.0-31.0) Seconds PTT Ratio Sodium (136-145) mmol/L Potassium (3.5-5.1) mmol/L Chloride (98-107) mmol/L Carbon Dioxide (21-32) mmol/L Anion Gap (3-11) BUN (7-18) mg/dl Creatinine (0.6-1.4) mg/dl Est Cr Clr Drug Dosing ml/min Est GFR ( Amer) ml/min Est GFR (Non-Af Amer) ml/min BUN/Creatinine Ratio (10-20) Glucose (70-99) mg/dl Calcium (8.5-10.1) mg/dl Magnesium (1.8-2.4) mg/dl Total Bilirubin (0.2-1) mg/dl AST (15-37) U/L ALT (12-78) U/L Alkaline Phosphatase (45-117) U/L Troponin I (0-0.045) ng/ml Total Protein (6.4-8.2) gm/dl Albumin (3.4-5.0) gm/dl Globulin (2.5-4.0) gm/dl Albumin/Globulin Ratio (0.9-2) TSH (0.300-4.500) uIu/ml COVID-19 Eval Order Covid19 at [facility] SARS-CoV-2 (PCR) NEGATIVE (Negative) Administered Medications Apixaban (Apixaban 5 Mg Tablet) 5 mg PO BID PASCALE Stop: 02/05/21 12:44 Last Admin: 01/06/21 14:15 Dose: 5 mg Documented by: [id number] Diltiazem HCl 125 mg/ Dextrose 125 mls @ 5 mls/hr IV .Q24H PASCALE; Protocol Stop: 02/05/21 10:59 Last Admin: 01/06/21 11:10 Dose: 5 mg/hr, 5 mls/hr Documented by: [id number] Cosigned by: [id number] Discontinued Medications Diltiazem HCl (Diltiazem Hcl 5 Mg/Ml 5 Ml Vial) 10 mg IV NOW STA Stop: 01/06/21 08:01 Last Admin: 01/06/21 08:10 Dose: 10 mg Documented by: [id number] Cosigned by: [id number] Diltiazem HCl (Diltiazem Hcl 5 Mg/Ml 5 Ml Vial) 5 mg IV NOW STA Stop: 01/06/21 10:30 Last Admin: 01/06/21 11:11 Dose: 5 mg Documented by: [id number] Cosigned by: [id number] Sodium Chloride (Nss) 500 mls @ 999 mls/hr IV .Q31M PASCALE Stop: 01/06/21 08:30 Last Infusion: 01/06/21 08:44 Dose: 0 mls/hr Documented by: [id number] Admin: 01/06/21 08:11 Dose: 999 mls/hr Documented by: [id number] Imaging Data Radiologist's Impression: Chest X-Ray 01/06/21 08:00 XR chest 1V portable CLINICAL HISTORY: weakness COMPARISON STUDY: Chest radiograph August 26, 2020. FINDINGS: Lung volumes are normal. Lungs are clear. There is no pneumothorax or pleural effusion. Cardiac size is stable. Mediastinal contours are normal. There is no evidence for pulmonary edema. Note is made of median sternotomy wires, mediastinal surgical clips and a prosthetic mitral valve. IMPRESSION: No acute cardiopulmonary findings. ACT 112: Negative or not required by law. Electronically signed by: Jason Hamlin M.D. 01/06/2021 8:22 AM Discharge Plan Visit Data Chief Complaint: Arrhythmia/Palpitations Stated Complaint: AFIB, SOB ED Provider: Yosvany Wilson Discharge Problem: Atrial fibrillation with rapid ventricular response, Chest pain Patient Disposition: Admitted As Inpatient Condition: Good Discharge Instructions Interventions: ED Discharge Assessment Last Done: 01/06/21 12:06 Discharge Problem: Chest pain Qualifiers: Chest pain type: unspecified Qualified Code(s): R07.9 - Chest pain, unspecified
[2021-01-06 08:22] LABS: Partial Thromboplastin Time 25.1 Seconds (21.0-31.0); Prothrombin Time 10.3 Seconds (9.0-12.0)
--- NOTE | 2021-01-06 08:24 | XRay Report ---
XR chest 1V portable CLINICAL HISTORY: weakness COMPARISON STUDY: Chest radiograph August 26, 2020. FINDINGS: Lung volumes are normal. Lungs are clear. There is no pneumothorax or pleural effusion. Car diac size is stable. Mediastinal contours are normal. There is no evidence for pulmonary edema. Note is made of median sternotomy wires, mediastinal surgical clips and a prosthetic mitral valve. IMPRESSION: No acute cardiopulmonary findings. ACT 112: Negative or not required by law. Electronically signed by: Jason Hamlin M.D. 01/06/2021 8:22 AM
[2021-01-06 08:28] LABS: Alanine Aminotransferase 40 U/L (12-78); Albumin Level 3.9 gm/dl (3.4-5.0); Aspartate Aminotransferase 26 U/L (15-37); BUN Creatinine Ratio 20.6 (10-20); Blood Urea Nitrogen 21 mg/dl (7-18); Calcium 9.6 mg/dl (8.5-10.1); Carbon Dioxide 21 mmol/L (21-32); Chloride 110 mmol/L (98-107); Creatinine Clr Calc Pharmacy 83.9 ml/min; Est GFR (African American) 92.6 ml/min; Est GFR (Non-African American) 79.9 ml/min; Glucose 151 mg/dl (70-99); Magnesium 2.4 mg/dl (1.8-2.4); Potassium 3.7 mmol/L (3.5-5.1); Sodium 139 mmol/L (136-145)
[2021-01-06 08:39] LABS: Albumin Globulin Ratio 0.8 (0.9-2); Alkaline Phosphatase 69 U/L (45-117); Bilirubin,Total 0.5 mg/dl (0.2-1); Globulin 4.6 gm/dl (2.5-4.0); Thyroid Stimulating Hormone 0.715 uIu/ml (0.300-4.500); Total Protein 8.5 gm/dl (6.4-8.2); Troponin I < 0.015 ng/ml (0-0.045)
[2021-01-06] MEDS ORDERED: STAT IV Infusion **Titration per Protocol STA (10:29)
[2021-01-06] MEDS: dilTIAZem HCL 125 MG in DEXTROSE 5% 100 ML IV SCH (11:10)
--- NOTE | 2021-01-06 11:24 | Cardiology Consultation ---
Date of Consultation January 06, 2021 History of Present Illness Reason for Consultation: Atrial fibrillation Requesting Physician: Dr. Virgen History of Present Illness Justin was watching TV last night at around 10:00 and he started noticing some jitteriness and notes not feeling himself. He checked his blood pressure and noted that his blood pressure was high and his heart rate was much faster than usual. He then noticed some fluttering and some shortness of breath if he tried to exert himself. He went to bed woke up went back to bed and he woke up at 5 AM in order to work today and just did not feel well with continued fluttering and sense of agitation. He has not slept well the last 2 nights but outside of that there have been any significant changes he denies any increased alcohol consumption. He has 80 lightheadedness or dizziness presyncope syncope the only time he noted shortness of breath is if he went to exert himself. He has some very vague left-sided chest discomfort and some very vague right-sided chest discomfort which is rather pinpoint. He has no lower extremity edema denies any presyncope syncope denies any bleeding bruising dark stools black stools fevers chills sweats cough productive sputum. 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 The rest of a complete her systems otherwise negative Allergies Allergy/AdvReac Type Severity Reaction Status Date / Time omeprazole Allergy Rash Unverified 01/01/21 11:18 Home Medications Medication Instructions Recorded Confirmed Type aspirin 81 mg tablet,delayed 81 mg PO QAM 08/17/18 01/06/21 History release (Aspirin Low Dose) ibuprofen 200 mg capsule 400 mg PO Q6H PRN 08/17/18 01/06/21 History metoprolol tartrate 25 mg tablet 37.5 mg PO HS 08/17/18 01/06/21 History rosuvastatin 20 mg tablet 20 mg PO HS 08/25/20 01/06/21 History Patient History Medical History Dyslipidemia HTN (hypertension) Right foot pain Surgical History H/O heart bypass surgery 2019 H/O inguinal hernia repair Repair of left indirect inguinal hernia with mesh 11-01-08 Dr. Carney Family History Sister , age 58 Myocardial infarction Uncle , age 60 Myocardial infarction Mother Cancer Grandmother Hypertension Grandfather Cancer Stroke Social History Smoking Status: Never smoker Second Hand Exposure: No; Hx Alcohol Use: Yes Alcohol type: beer Hx Substance Use: No Preferred Language: Mongolian Communication Ability: Effective Data Librarian Required: No Beliefs That Will Affect Care: None marital status: Current Living Situation: Spouse Feels Safe at Home: Yes Assistive Devices: None Results & Data ([facility]) Vital Signs (Past 12 Hours) Vital Signs Temp Pulse Pulse Resp BP BP Pulse Ox 01/06/21 11:03 36.7 C 105 H 18 154/126 H 99 01/06/21 10:05 88 18 148/91 H 97 01/06/21 09:06 90 18 135/100 97 01/06/21 08:43 84 18 146/95 H 98 01/06/21 08:15 98 01/06/21 08:00 17 146/95 H 97 01/06/21 07:49 36.5 C 109 H 18 139/93 97 he is awake alert and oriented x3 he is in no acute distress. HEENT: Mildly reduced carotid upstrokes with tachycardia no evidence of carotid bruits Lungs: Clear to auscultation bilaterally no rales rhonchi wheezing Heart irregular rate and rhythm (tachycardic) no appreciable murmurs rubs or gallops abdomen: Soft nontender distended positive bowel sounds extremities no clubbing cyanosis or edema psychiatric he appears slightly anxious. His laboratory studies were reviewed as well as his EKG and telemetry strips IMPRESSION: 1. Symptomatic paroxysmal atrial fibrillation with a chads 2 vascular score of 2 2. Coronary disease status post coronary bypass grafting x2 with a TOUSSAINT to the LAD and an SVG to the OM 3. Status post mitral valve repair involving the P2 segment with annuloplasty ring Maze procedure and ligation of left atrial appendage July 2017 4. Echocardiogram [facility] 2019 EF 45 to 50% with mild global hypokinesis; previous echocardiogram in the [facility] suggesting an EF in the range of 55% 5. Preoperative paroxysmal atrial fibrillation 6. Hyperlipidemia 7. Hypertension 8. Three-vessel coronary artery disease with severe left main disease into the ostial portion of the circumflex with a 50% mid RCA lesion He will be started on a diltiazem drip in the emergency room. He was started 5 mg with a bolus and then the drip will be started. My hope is he converts on his own. He will need to be started on apixaban 5 mg twice daily. This is due to his elevated chads vascular 2 score as well as the fact that he may need cardioversion. This is the first episode of A. fib he has had since his surgery in 2018 at this point I would not recommend long-term antiarrhythmic therapy unless he starts having recurrent atrial fibrillation. We will plan to increase his outpatient beta-blockers as long as he has blood pressure and heart rate room. He has been in A. fib at this point approximately 13 hours. If he does not convert on his own over the weekend then cardioversion can be planned next week I tried to reassure him that this is just a little speed bump along the way. This will hopefully help some of his underlying anxiety. He did have a recent steroid injection and has been using Motrin on a rather regular basis due to musculoskeletal discomfort. Whether this is a trigger or not is unclear. We will continue to follow him with you all his questions were answered in detail
--- NOTE | 2021-01-06 12:25 | History & Physical Report ---
Date of Service January 06, 2021 Assessment & Plan (1) HTN (hypertension): Plan: 60 y/o M Hx HTN, HLD, CAD, PAF. The pt had onset of palpitations and chest tightness the prior evening. He denies SOB, N/V or diaphoreses. He had had an episode of AF a few years ago and not since, however, he suspected that this had now recurred. AF with RVR was confirmed on arrival to the ER. Labs were notable for leukocytosis. 1) AF/RVR - placed on a Cardizem drip. Evaluated by his audit lead. Received full dose Lovenox. He may remain on a beta holley or transition to cardizem at the discretion of his audit lead. An echo is pending. 2) CP with history of CAD - likely rate related. Trend trops, cont ASA, statin, beta holley. May need stress. 3) HTN, HLD - cont metoprolol, Crestor Full code - full dose Lovenox Total time for this admit including review of labs, meds, imaging, records - discussion with pt and ER attending - 45 min (2) HLD (hyperlipidemia): (3) PAF (paroxysmal atrial fibrillation): (4) CAD (coronary artery disease): (5) Chest pain: History of Present Illness Chief Complaint: CP, palpitations Primary Care Provider: Fabricio Vogt, 60 y/o M Hx HTN, HLD, CAD, PAF. The pt had onset of palpitations and chest tightness the prior evening. He denies SOB, N/V or diaphoreses. He had had an episode of AF a few years ago and not since, however, he suspected that this had now recurred. AF with RVR was confirmed on arrival to the ER. Labs were notable for leukocytosis. PMH: 1) CAD 2) PAF - last AF episode occurred prior to CABG and mitral valve repair in 2018. 3) HTN 4) HLD Surgical: 2 vessel CABG and mitral valve repair 2018 Social: Does not smoke. Rare ETOH. Family: + CAD - sister [place] age 58 Allergies Allergy/AdvReac Type Severity Reaction Status Date / Time omeprazole Allergy Rash Unverified 01/01/21 11:18 Home Medications Medication Instructions Recorded Confirmed Type aspirin 81 mg tablet,delayed 81 mg PO QAM 08/17/18 01/06/21 History release (Aspirin Low Dose) ibuprofen 200 mg capsule 400 mg PO Q6H PRN 08/17/18 01/06/21 History metoprolol tartrate 25 mg tablet 37.5 mg PO HS 08/17/18 01/06/21 History rosuvastatin 20 mg tablet 20 mg PO HS 08/25/20 01/06/21 History Past Med/Surg History Medical History Dyslipidemia HTN (hypertension) Right foot pain Surgical History H/O heart bypass surgery 2018 H/O inguinal hernia repair Repair of left indirect inguinal hernia with mesh 11-01-08 Dr. Carney Family History Sister , age 58 Myocardial infarction Uncle , age 60 Myocardial infarction Mother Cancer Grandmother Hypertension Grandfather Cancer Stroke Social History Smoking Status: Never smoker Second Hand Exposure: No; Hx Alcohol Use: Yes Alcohol type: beer Hx Substance Use: No Preferred Language: Cuban Communication Ability: Effective Twister Doffer Required: No Beliefs That Will Affect Care: None marital status: Current Living Situation: Spouse Feels Safe at Home: Yes Assistive Devices: None Review of Systems Review of Systems: Gen: Denies fevers, night sweats, rigors, fatigue, malaise, weight loss/gain ENT: Denies congestion, throat pain, hearing loss Eyes: Denies acute visual changes CV: + palpitations and CP as above Pulmonary: Denies SOB, cough, wheezing GI: Denies N/V, diarrhea, constipation Neuro: Denies acute or unilateral weakness, acute gait impairment, headache or acute visual changes Musculoskeletal: Denies joint pain, inflammation Endocrine: Denies polydipsia, polyuria Skin: Denies acute rashes or ulcers Physical Exam Physical Exam: General: AAO x 3, no distress ENT: No erythema or exudates, no thrush Eyes: TONYA, EOMI Head and neck: Normocephalic, atraumatic, No JVD, neck is supple. Chest/heart: S1,2 irregular, tachy Lungs: CTAB, no wheezing or crackles Abdomen: Nontender, nondistended, BS+ Neuro: AAO x 3, speech is clear, no unilateral weakness or loss of sensation, coordination intact Musculoskeletal: No joint inflammation, muscle tenderness, FROM Skin: No acute rashes or ulcers Extremities: No clubbing, cyanosis, edema Results & Data Results & Data ([facility]) Vital Signs (Past 12 Hours) Vital Signs Temp Pulse Pulse Resp BP BP Pulse Ox 01/06/21 11:46 83 18 137/94 97 01/06/21 11:30 91 H 17 129/89 96 01/06/21 11:03 98.1 F 105 H 18 154/126 H 99 01/06/21 10:05 88 18 148/91 H 97 01/06/21 09:06 90 18 135/100 97 01/06/21 08:43 84 18 146/95 H 98 01/06/21 08:15 98 01/06/21 08:00 17 146/95 H 97 01/06/21 07:49 97.7 F 109 H 18 139/93 97 Code Status & VTE Plan VTE Prophylaxis Plan VTE Prophylaxis will be ordered: Yes PG Care Time/CCT Total # of Minutes Spent Total Time Spent with Patient: Total time spent is greater than 50% in coordination of care (as documented) at patient's floor/unit and/or counseling patient: Coding Level of Care Code 90594 Initial Inpt Care Lvl 3 Diagnoses HTN (hypertension) I10 HLD (hyperlipidemia) E78.5 PAF (paroxysmal atrial fibrillation) I48.0 CAD (coronary artery disease) I25.10 Chest pain R07.9
[2021-01-06] MEDS ORDERED: NITROGLYCERIN SL 0.4 MG/TAB TAB SL PRN (12:30)
[2021-01-06] MEDS ORDERED: ACETAMINOPHEN 325 MG TAB PO PRN (12:30)
[2021-01-06] MEDS ORDERED: ENOXAPARIN 1 MG/KG SQ SCH (12:30)
[2021-01-06] MEDS ORDERED: ZOLPIDEM TARTRATE 5 MG TAB PO PRN (12:30)
[2021-01-06] MEDS: APIXABAN 5 MG TABLET PO SCH ×2 (14:15→20:49)
[2021-01-06] MEDS: ROSUVASTATIN CALCIUM 20 MG TAB PO SCH (20:49)
[2021-01-06] MEDS ORDERED: METOPROLOL TARTRATE 25 MG TAB PO SCH (21:00)
[2021-01-07] MEDS: APIXABAN 5 MG TABLET PO SCH ×2 (09:04→20:47)
[2021-01-07] MEDS: ASPIRIN 81 MG ECTAB PO SCH (09:05)
--- NOTE | 2021-01-07 11:15 | Electrocardiogram Report ---
Test Reason : Blood Pressure : / mmHG Vent. Rate : 126 BPM Atrial Rate : 138 BPM P-R Int : 000 ms QRS Dur : 096 ms QT Int : 308 ms P-R-T Axes : 000 060 -30 degrees QTc Int : 446 ms Atrial fibrillation with rapid ventricular response Nonspecific ST and T wave abnormality Abnormal ECG When compared with ECG of 26-AUG-2020 06:50, Atrial fibrillation has replaced Sinus rhythm Vent. rate has increased BY 58 BPM Non-specific change in ST segment in Inferior leads T wave inversion now evident in Inferior leads Confirmed by Ace Rachel ([id number] on 01/07/2021 11:14:58 AM Referred By: REFERRED SELF Confirmed By:Ace Rachel
--- NOTE | 2021-01-07 12:53 | Cardiology Progress Note ---
Date of Service January 07, 2021 Assessment & Plan Admission and Anticipated Discharge Date Admission Date: January 06, 2021 Results & Data ([facility]) Vital Signs (Past 12 Hours) Vital Signs Temp Pulse Pulse Resp BP Pulse Ox 01/07/21 11:22 36.7 C 73 18 117/87 95 01/07/21 08:00 78 01/07/21 07:45 36.7 C 73 18 115/86 96 01/07/21 04:29 36.5 C 57 L 18 124/79 96 01/07/21 03:35 69 he is awake alert and oriented x3 he is in no acute distress. HEENT: Mildly reduced carotid upstrokes with tachycardia no evidence of carotid bruits Lungs: Clear to auscultation bilaterally no rales rhonchi wheezing Heart irregular rate and rhythm (tachycardic) no appreciable murmurs rubs or gallops abdomen: Soft nontender distended positive bowel sounds extremities no clubbing cyanosis or edema psychiatric he appears slightly anxious. His laboratory studies were reviewed as well as his EKG and telemetry strips IMPRESSION: 1. Symptomatic paroxysmal atrial fibrillation with a chads 2 vascular score of 2 2. Coronary disease status post coronary bypass grafting x2 with a TOUSSAINT to the LAD and an SVG to the OM 3. Status post mitral valve repair involving the P2 segment with annuloplasty ring Maze procedure and ligation of left atrial appendage July 2017 4. Echocardiogram [facility] 2020 EF 45 to 50% with mild global hypokinesis; previous echocardiogram in the [facility] system suggesting an EF in the range of 55% 5. Preoperative paroxysmal atrial fibrillation 6. Hyperlipidemia 7. Hypertension 8. Three-vessel coronary artery disease with severe left main disease into the ostial portion of the circumflex with a 50% mid RCA lesion He is on apixaban 5 mg twice daily and was placed on apixaban within 24 hours of his A. fib. Unfortunately he has not converted with a diltiazem drip. His rates are fast with minimal amounts of activity. I would increase his diltiazem to 5 mg/h. We will make him n.p.o. after midnight with the exception of his medications. His diltiazem drip should be held an hour before his planned cardioversion tomorrow. we will notify anesthesia as well as the [facility] for planned cardioversion tomorrow. If he cannot to be done in the morning then the [facility] any physician group would need to cardiovert him in the afternoon. This was discussed with the hospitalist service as well. I did discuss with Justin that he would need to be on anticoagulation for at least 3 months more likely 6 months. He has been symptomatic with his A. fib to this point. The risks and benefits of cardioversion were discussed in detail. Risks including but not limited to stroke, heart attack, , hypotension or hypertension, low heart rate or fast heart rate were discussed. He understands the risk and wishes to proceed.
[2021-01-07] MEDS ORDERED: Nursing to Pharmacy Communication SCH (15:45)
[2021-01-07] MEDS ORDERED: METOPROLOL SUCC 25MG EXT REL TAB PO ONE (16:00)
[2021-01-07] MEDS: dilTIAZem HCL 125 MG in DEXTROSE 5% 100 ML IV SCH (17:51)
[2021-01-07] MEDS: ROSUVASTATIN CALCIUM 20 MG TAB PO SCH (20:47)
[2021-01-07] MEDS ORDERED: METOPROLOL SUCC 50MG EXT REL TAB PO SCH (21:00)
--- NOTE | 2021-01-07 22:37 | Hospitalist Progress Note ---
Date of Service January 07, 2021 Assessment & Plan (1) Atrial fibrillation with rapid ventricular response: Plan: h/o PAF in the past. now with recurrent a.fib with RVR. remains on metoprolol and cardizem infusion for rate control. metoprolol increased to 50mg/day by Dr Rachel today. plan - if he doesn't spontaneously convert by tomorrow am then cardioversion planned by Dr Rachel. NPO after MN for such. eliquis 5mg BID for anticoagulation. (2) Chest pain: Plan: 2nd to #1. no evidence of ACS. (3) CAD (coronary artery disease): Plan: s/p CABG in the past. remains on asa, statin, BB. (4) HTN (hypertension): Plan: controlled (5) HLD (hyperlipidemia): Plan: statin (6) Hx of CABG: (7) S/P mitral valve repair: (8) H/O maze procedure: (9) Leukocytosis: Plan: suspect 2nd to steroid injection in left shoulder this past week. no infectious symptoms at this time. repeat cbc am. Admission and Anticipated Discharge Date Admission Date: January 06, 2021 Subjective patient continues in a.fib on tele, rates upper 90s and low 100s during the visit he was resting comfortably he is stressed out and anxious about the a.fib "Coming back" he hadn't had any a.fib in 2-3 years denies chest pain at this time had steroid injection in left shoulder on (3 days ago) Review of Systems Constitutional: no fever and no chills Respiratory: no cough and no dyspnea Cardiovascular: as per Subjective / HPI, + chest pain and + palpitations; no orthopnea Gastrointestinal: no abdominal pain, no nausea and no vomiting Physical Exam Physical Exam: gen - a/o x 3, pleasant, NAD neck - no JVD heart - tachy, irregular, s1, s2, no murmur lungs - CTA b/l abd - soft, NT, ND, BS+, no HSM ext - no edema Results & Data Results & Data ([facility]) Vital Signs (Past 12 Hours) Vital Signs Temp Pulse Pulse Pulse Resp BP Pulse Ox 01/07/21 20:05 36.6 C 105 H 20 125/89 96 01/07/21 17:40 97 H 01/07/21 16:34 81 146/94 H 01/07/21 15:14 134 H 157/101 H 96 01/07/21 14:48 71 136/101 H 01/07/21 11:22 36.7 C 73 18 117/87 95 Laboratory Results Labs 01/06/21 01/06/21 01/06/21 08:00 08:00 08:00 WBC 18.81 H RBC 5.85 Hgb 17.1 Hct 49.3 MCV 84.3 MCH 29.2 MCHC 34.7 RDW Std Deviation 40.8 RDW Coeff of Andrew 13.3 Plt Count 334 MPV 10.4 Immature Gran % (Auto) 0.3 Neut % (Auto) 85.8 Lymph % (Auto) 10.3 Callaway % (Auto) 3.6 Eos % (Auto) 0.0 Baso % (Auto) 0.0 Neut # (Auto) 16.15 H Lymph # (Auto) 1.94 Callaway # (Auto) 0.67 H Eos # (Auto) 0.00 Baso # (Auto) 0.00 Immature Gran # (Auto) 0.05 H PT 10.3 INR 1.0 APTT 25.1 PTT Ratio 1.0 Sodium 139 Potassium 3.7 Chloride 110 H Carbon Dioxide 21 Anion Gap 9.0 BUN 21 H Creatinine 1.01 Est Cr Clr Drug Dosing 83.9 Est GFR ( Amer) 92.6 Est GFR (Non-Af Amer) 79.9 BUN/Creatinine Ratio 20.6 H Glucose 151 H Calcium 9.6 Magnesium 2.4 Total Bilirubin 0.5 AST 26 ALT 40 Alkaline Phosphatase 69 Troponin I < 0.015 Total Protein 8.5 H Albumin 3.9 Globulin 4.6 H Albumin/Globulin Ratio 0.8 L TSH 0.715 COVID-19 Eval Order SARS-CoV-2 (PCR) 01/06/21 01/06/21 08:10 08:10 WBC RBC Hgb Hct MCV MCH MCHC RDW Std Deviation RDW Coeff of Andrew Plt Count MPV Immature Gran % (Auto) Neut % (Auto) Lymph % (Auto) Callaway % (Auto) Eos % (Auto) Baso % (Auto) Neut # (Auto) Lymph # (Auto) Callaway # (Auto) Eos # (Auto) Baso # (Auto) Immature Gran # (Auto) PT INR APTT PTT Ratio Sodium Potassium Chloride Carbon Dioxide Anion Gap BUN Creatinine Est Cr Clr Drug Dosing Est GFR ( Amer) Est GFR (Non-Af Amer) BUN/Creatinine Ratio Glucose Calcium Magnesium Total Bilirubin AST ALT Alkaline Phosphatase Troponin I Total Protein Albumin Globulin Albumin/Globulin Ratio TSH COVID-19 Eval Order Covid[address] [facility] SARS-CoV-2 (PCR) NEGATIVE PG Care Time/CCT Total # of Minutes Spent Total Time Spent with Patient: Total time spent is greater than 50% in coordination of care (as documented) at patient's floor/unit and/or counseling patient: Coding Level of Care Code 46933 Subseq Hosp Care Lvl 2 Diagnoses Atrial fibrillation with rapid ventricular response I48.91 Chest pain R07.9 Chest pain type: unspecified CAD (coronary artery disease) I25.10 HTN (hypertension) I10 HLD (hyperlipidemia) E78.5 Hx of CABG Z95.1 S/P mitral valve repair Z98.890 H/O maze procedure Z98.890 Leukocytosis D72.829 (1) Chest pain Chest pain type: unspecified Qualified Code(s): R07.9 - Chest pain, unspecified
[2021-01-08] MEDS: dilTIAZem HCL 125 MG in DEXTROSE 5% 100 ML IV SCH (01:55)
[2021-01-08 07:25] LABS: Eosinophils # (auto) 0.03 K/uL (0-0.5); Eosinophils % (auto) 0.2 %; Hematocrit (blood only) 50.9 % (42-52); Hemoglobin 17.9 g/dL (14.0-18.0); Immature Granulocytes # (auto) 0.04 K/uL (0.00-0.02); Immature Granulocytes % (auto) 0.3 %; Lymphocytes # (auto) 2.71 K/uL (1.2-3.4); Lymphocytes % (auto) 18.4 %; Mean Corpuscular Hemoglobin 29.8 pg (25-34); Mean Corpuscular Hgb Conc 35.2 g/dL (32-36); Mean Corpuscular Volume 84.8 fL (80-100); Mean Platelet Volume 10.4 fL (7.4-10.4); Monocytes % (auto) 6.8 %; Neutrophils # (auto) 10.95 K/uL (1.4-6.5); Neutrophils % (auto) 74.3 %; Platelet Count 350 K/uL (130-400); RDW Coefficient of Variation 13.5 % (11.5-14.5); RDW Standard Deviation 41.8 fL (36.4-46.3); White Blood Count 14.73 K/uL (4.8-10.8)
[2021-01-08] MEDS: APIXABAN 5 MG TABLET PO SCH (07:42)
[2021-01-08] MEDS: ASPIRIN 81 MG ECTAB PO SCH (07:42)
[2021-01-08 07:58] LABS: BUN Creatinine Ratio 25.4 (10-20); Calcium 8.9 mg/dl (8.5-10.1); Creatinine Clr Calc Pharmacy 94.9 ml/min; Est GFR (Non-African American) 92.3 ml/min; Potassium 4.1 mmol/L (3.5-5.1)
--- NOTE | 2021-01-08 09:15 | Cardiology Progress Note ---
Date of Service January 08, 2021 Assessment & Plan (1) Atrial fibrillation with rapid ventricular response: Plan: IMPRESSION: 1. Symptomatic paroxysmal atrial fibrillation with a chads 2 vascular score of 2 2. Coronary disease status post coronary bypass grafting x2 with a TOUSSAINT to the LAD and an SVG to the OM 3. Status post mitral valve repair involving the P2 segment with annuloplasty ring Maze procedure and ligation of left atrial appendage July 2017 4. Echocardiogram [facility] 2019 EF 45 to 50% with mild global hypokinesis; previous echocardiogram in the [facility] suggesting an EF in the range of 55% 5. Preoperative paroxysmal atrial fibrillation 6. Hyperlipidemia 7. Hypertension 8. Three-vessel coronary artery disease with severe left main disease into the ostial portion of the circumflex with a 50% mid RCA lesion Continue anticoagulation with apixaban- placed on apixaban within 24 hours of his A. fib. Dilt drip resumed this morning for heart rates ranging 1teens to 140s. He is npo for cardioversion this afternoon which will be performed by [facility] cardiology He will need to be on anticoagulation for at least 3 months more likely 6 months. He has been symptomatic with his A. fib to this point. Admission and Anticipated Discharge Date Admission Date: January 06, 2021 Subjective Mr. Sears is having short intervals of chest discomfort, this morning in his uppe right chest. No sob. At times he feels flushed which he has associated with his faster heart rates. He is in an A flutter on the monitor this morning. Review of Systems Review of Systems: All systems reviewed & are unremarkable except as noted in HPI & below Physical Exam Constitutional: WD/WN, vitals as above Respiratory: normal respiratory effort, lungs clear to auscultation Cardiovascular: Rate/Rhythm: + abnormal rhythm Heart Sounds: normal S1 and normal S2; no murmur Skin: no rashes, warm and dry Neurologic: moves all extremities and awake Psychiatric: A+Ox3, euthymic affect Results & Data ([facility]) Vital Signs (Past 12 Hours) Vital Signs Temp Pulse Pulse Resp BP Pulse Ox 01/08/21 08:14 36.6 C 78 20 131/96 94 01/08/21 03:45 36.6 C 69 18 118/87 96 01/07/21 23:30 36.7 C 83 20 113/83 96
--- NOTE | 2021-01-08 09:37 | Electrocardiogram Report ---
Test Reason : Blood Pressure : / mmHG Vent. Rate : 086 BPM Atrial Rate : 076 BPM P-R Int : 000 ms QRS Dur : 086 ms QT Int : 370 ms P-R-T Axes : 000 043 006 degrees QTc Int : 442 ms Atrial fibrillation Abnormal ECG When compared with ECG of 06-JAN-2021 07:52, HR has decreased by 40 bpm Otherwise no significant change Confirmed by Srinivasa Gan ([id number]) on 01/08/2021 9:36:48 AM Referred By: REFERRED SELF Confirmed By:Srinivasa Gan
--- NOTE | 2021-01-08 11:33 | Anesthesiology Consultation ---
Date of Service January 08, 2021 Assessment & Plan ASA ASA3 Proposed Anesthesia Anesthesia Type: MAC Risk / Benefits Reviewed With: PT / POA / Parent / Guardian, Accepts Plan and Informed Consent Obtained History Surgery Operation Date: 01/08/21 11:30 Proposed Procedures p Cardioversion w/Anesthesia Sedation - Srinivasa Gan MD Height/Weight Height: 5 ft 9 in Weight: 86.3 kg Allergies Allergy/AdvReac Type Severity Reaction Status Date / Time omeprazole Allergy Rash Unverified 01/01/21 11:18 Medications Home Medications Medication Instructions Recorded Confirmed Last Taken aspirin 81 mg tablet,delayed 81 mg PO QAM 08/17/18 01/06/21 01/06/21 release (Aspirin Low Dose) ibuprofen 200 mg capsule 400 mg PO Q6H PRN 08/17/18 01/06/21 12/20/20 600 mg metoprolol tartrate 25 mg tablet 37.5 mg PO HS 08/17/18 01/06/21 01/05/21 rosuvastatin 20 mg tablet 20 mg PO HS 08/25/20 01/06/21 01/05/21 Active Medications Generic Name Dose Route Start Last Admin Trade Name Freq PRN Reason Stop Dose Admin Apixaban 5 mg 01/06/21 12:45 01/08/21 07:42 Apixaban 5 Mg Tablet PO 02/05/21 12:44 5 mg BID PASCAEL Administration Aspirin 81 mg 01/07/21 09:00 01/08/21 07:42 Aspirin 81 Mg Ectab PO 02/06/21 08:59 81 mg QAM PASCALE Administration Diltiazem HCl 125 mg/ Dextrose 125 mls @ 5 mls/hr 01/06/21 11:00 01/08/21 09:10 IV 02/05/21 10:59 5 mg/hr .Q24H PASCALE 5 mls/hr Titration Protocol 5 MG/HR Metoprolol Succinate 50 mg 01/07/21 21:00 01/07/21 20:47 Metoprolol Succ 50mg Ext Rel Tab PO 02/06/21 20:59 50 mg HS PASCALE Administration Rosuvastatin Calcium 20 mg 01/06/21 21:00 01/07/21 20:47 Rosuvastatin Calcium 20 Mg Tab PO 02/05/21 20:59 20 mg HS PASCALE Administration Past Medical History Medical History (Updated 01/07/21 @ 22:35 by Julio Gage) Dyslipidemia HTN (hypertension) Right foot pain Exercise / Class Metabolic Activity II 4-5 Yardwork/Stairs/Walk up hill Past Family History Family History Sister , age 58 Myocardial infarction Uncle , age 60 Myocardial infarction Mother Cancer Grandmother Hypertension Grandfather Cancer Stroke Past Surgical History Surgical History (Updated 01/07/21 @ 22:35 by Julio Gage) H/O heart bypass surgery 2018 H/O inguinal hernia repair Repair of left indirect inguinal hernia with mesh 11-01-08 Dr. Carney H/O maze procedure S/P mitral valve repair Past Anesthesia History No Hx of Anesthesia Complications and No Family Hx of Anesthesia Complications History of PONV No Hx of PONV and No Hx of Motion Sickness Social History Smoking Status: Never smoker Do You Dip or Chew Tobacco: No Hx Alcohol Use: Yes Alcohol type: beer alcohol intake frequency: a few times a month Hx Substance Use: No substance use type: does not use Review of Systems denies fever/cough/ colds/ chest pain/ SOB/ BOUBACAR denies BOUBACAR Physical Exam Vital Signs Last Vital Signs Temp 36.6 C 01/08/21 08:14 Pulse 90 01/08/21 11:23 Resp 18 01/08/21 11:23 BP 168/105 H 01/08/21 11:23 Pulse Ox 95 01/08/21 11:23 ENMT Mouth: no TMJ abnormality and no dentition abnormality Thyromental Distance: > or= 3.5 Finger Breadths Mallampati Class: II Neck neck extension not limited Respiratory normal respiratory effort; no respiratory distress Auscultation: lungs clear to auscultation bilaterally Cardiovascular Rate/Rhythm: regular rate and regular rhythm Neurologic moves all extremities Psychiatric Orientation: alert and oriented x 3 Testing Laboratory Results 01/08/21 06:57 01/08/21 06:57 PT 10.3 Seconds (9.0-12.0) 01/06/21 08:00 INR 1.0 (0.9-1.1) 01/06/21 08:00 APTT 25.1 Seconds (21.0-31.0) 01/06/21 08:00
[2021-01-08] MEDS ORDERED: LIDOCAINE 2% 2 ML VIAL/AMP(20MG/ML) INFIL ONE (11:57)
[2021-01-08] MEDS ORDERED: PROPOFOL IV EMULSION 10 MG/ML 20 ML VIAL IV ONE (11:57)
--- NOTE | 2021-01-08 12:15 | Cardioversion ---
Date of Service January 08, 2021 PG Electrical Cardioversion Rp Electrical Cardioversion Report Indication: Atrial flutter with rapid ventricular response Written consent was obtained after the risks and benefits were explained, including but not limited to pain, thermal burn, allergic reaction, aspiration, airway obstruction, laryngospasm, infection, hypotension, and cardiorespiratory arrest. A time out was taken and the correct patient and procedure identified. Sedation was achieved by anesthesiology (see separate note). The biphasic defibrillator was set to 50 joules of energy and synchronized. After confirmation of sedation and "all clear" safety check the synchronized shock was delivered. This resulted in successful conversion of the dysrhythmia back into sinus rhythm at 70 bpm. See nursing notes for details of procedure. There were no complications and the patient recovered uneventfully from the procedure. Coding Level of Care Code Cardioversion, elective Additional Codes Electrical Cardioversion Report ([id number])
--- NOTE | 2021-01-08 12:17 | Anesthesiology Progress Note ---
Date of Service January 08, 2021 Anesthesia Post Procedure Vital Signs Vital Signs: Temp Pulse Pulse Pulse Resp BP Pulse Ox 01/08/21 11:55 77 18 117/92 98 01/08/21 11:48 70 18 107/76 96 01/08/21 11:23 90 18 168/105 H 95 01/08/21 09:45 87 01/08/21 08:14 36.6 C 78 20 131/96 94 01/08/21 03:45 36.6 C 69 18 118/87 96 01/07/21 23:30 36.7 C 83 20 113/83 96 01/07/21 20:05 36.6 C 105 H 20 125/89 96 01/07/21 17:40 97 H 01/07/21 16:34 81 146/94 H 01/07/21 15:14 134 H 157/101 H 96 01/07/21 14:48 71 136/101 H Pain Intensity Left Chest: Pain Intensity: 3 Transfer of Care Handoff Completed per policy Notes Mental Status: alert / awake / arousable and participated in evaluation Patient Amnestic to Procedure: Yes Nausea / Vomiting: adequately controlled Pain: adequately controlled Airway Patency, RR, SpO2: stable & adequate BP & HR: stable & adequate Hydration State: stable & adequate Anesthetic Complications: no major complications apparent and Pt Satisfied with anesthetic care
--- NOTE | 2021-01-08 15:42 | Discharge Summary ---
Date of Service date of admission - January 06, 2021 date of discharge - January 08, 2021 Admission HPI Per Admitting Provider 60 y/o M Hx HTN, HLD, CAD, PAF. The pt had onset of palpitations and chest tightness the prior evening. He denies SOB, N/V or diaphoreses. He had had an episode of AF a few years ago and not since, however, he suspected that this had now recurred. AF with RVR was confirmed on arrival to the ER. Labs were notable for leukocytosis. PMH: 1) CAD 2) PAF - last AF episode occurred prior to CABG and mitral valve repair in 2018. 3) HTN 4) HLD Surgical: 2 vessel CABG and mitral valve repair 2017 Social: Does not smoke. Rare ETOH. Family: + CAD - sister [place] age 58 Principal Diagnosis Paroxysmal Atrial Fibrillation s/p cardioversion Discharge Exam Gen: NAD Neck: no JVD Heart: RRR, s1 s2, no murmur Lungs: CTA b/l Abd: soft, NT, ND, BS+, no HSM Ext: no edema, pulses 2+ b/l Discharge Data Allergies Allergy/AdvReac Type Severity Reaction Status Date / Time omeprazole Allergy Rash Verified 01/16/21 10:51 Consultations [facility] Procedures Performed Operation Date: 01/08/21 11:30 Actual Procedures p Cardioversion - Srinivasa Gan MD Hospital Course (1) Atrial fibrillation with rapid ventricular response: h/o PAF in the past. Presented this admission with recurrent a.fib with RVR. Placed on cardizem infusion for rate control in addition to his usual metoprolol succinate. Metoprolol increased to 50mg/day while here. Also initiated on systemic anticoagulation. Despite a rate control strategy his rates were not optimally controlled on the above. Furthermore he did not spontaneously convert to NSR during his stay. Thus, on 01/08/21, he was electively cardioverted by Dr Srinivasa Gan with successful denominational of NSR. In the immediate hours following his cardioversion he remained in NSR. At discharge he will take - Eliquis 5mg BID for anticoagulation. Metoprolol succinate 50mg once daily. (2) Chest pain: 2nd to #1 above. no evidence of ACS while here. (3) CAD (coronary artery disease): s/p CABG in the past. remains on asa, statin, BB. (4) HTN (hypertension): controlled during this short hospital stay. (5) HLD (hyperlipidemia): continue statin agent. (6) Hx of CABG: (7) S/P mitral valve repair: (8) H/O maze procedure: (9) Leukocytosis: suspect 2nd to steroid injection in left shoulder this past week. no infectious symptoms during the stay. COVID-19 testing negative. Peak WBC count was 18, improving to 14 on day of discharge. Previous WBC counts on old CBCs have been normal with normal differentials. Would simply recommend another CBC at time of hospital follow-up to ensure normalization. Total Time Total Time Spent Total Time Spent (In Minutes): 35 Discharge Plan Discharge Items Patient Disposition: Home - Self-Care Reason For Visit: Atrial Fibrillation Discharge Diagnosis: Rapid atrial fibrillation - resolved following electrical cardioversion. Condition on Discharge: Good Activity: Resume your previous activity Non-emergency contact: Primary Care Provider and Clinic Scheduler Call non-emergency contact if: you have any medication questions and your symptoms worsen Follow-up/Referrals: Fabricio Vogt DO [Primary Care Provider] - (within 1 week ) Ace Rachel DO [Physician] - (1-2 weeks ) Diet: Heart Healthy Addtl Attending Provider Instructions: Mr Sears, You were admitted to the hospital due to rapid atrial fibrillation. Initially your a.fib was controlled with IV and oral heart medications. On 01/08/21 Dr Srinivasa Gan with [facility] performed electrical cardioversion ("shocked the heart"). This was successful in restoring a normal heart rhythm. In the hours following your procedures you remained in normal sinus rhythm. Dr Rachel recommends the following - * INCREASE your metoprolol succinate to 50mg at bedtime; prescription sent to your pharmacy. * START eliquis 5mg twice daily; first dose tonight. This is your blood thinner. Prescription sent to your pharmacy. * Please - no anti-inflammatory pills such as naprosyn, alleve, motrin, ibuprofen, etc. It is OK to take tylenol. Motrin interacts with Eliquis. * CONTINUE your aspirin 81mg daily. If possible check your pulse via your blood pressure machine on a day-to-day basis. If your pulse is rapid (>100) and remains fast for a prolonged period of time please call Dr Rachel or Dr Vogt's office as soon as possible. Follow-up - see separate section Return to [facility] if - * you have any concerns about bleeding from your eliquis medication * your pulse is fast and you are feeling poorly * you have recurrent chest pains * you are short of breath * any other concerns Best wishes for continued good health, Dr Gage Addtl Apartment Community Manager Provider Instructions: Medication Instructions: Your atrial fibrillation condition is typically treated with an anticoagulant. Anticoagulants will thin your blood to prevent small blood clots in your heart. Your blood thinner is "ELIQUIS." * You should take her medication exactly as directed. * Never skip a dose. * Never take a double dose. If you miss a dose, take it as soon as you remember. Call your Primary Care doctor or manager parking if you experience any of the following: * Chest Pain * Sudden Shortness of Breath * Rapid or pounding heart beat * Fainting * Dizziness * Cough with blood or bloody sputum * Sweating more than normal * Bruises * Heavy or uncontrolled bleeding * Blood in your urine, stool or vomit * Black or tarry stools * Heavy nose bleeding Caring for Your Self at Home: * Please do not use a traditional straight razor to shave; use an electric shaver. This decreases the chances of bleeding while shaving. Pending Studies at Discharge: No Stand-Alone Forms: [facility], Smoking Cessation Medications and DC Order Prescriptions: New Eliquis 5 mg Tablet 5 mg PO BID Qty: 60 RF: 5 Continued aspirin [Aspirin Low Dose] 81 mg Tablet,Delayed Release (Dr/Ec) 81 mg PO QAM RF: 0 rosuvastatin 20 mg tablet 20 mg PO HS RF: 0 Changed metoprolol succinate 50 mg tablet extended release 24 hr 50 mg PO HS Qty: 30 RF: 5 Discontinued ibuprofen 200 mg Capsule 400 mg PO Q6H PRN (Reason: Pain) RF: 0 Discharge Orders: Discharge Order (Routine); Ordered 01/08/21 Ordered By: Julio Gage Admission Data Admit Date/Time: 01/06/21 10:41 Attending Provider: Julio Gage Admit Provider: Weston Virgen Primary Care Provider: Fabricio Vogt Other Providers: Weston Virgen ; Ace Rachel Other Interventions: Discharge Summary Assessment (RN) Last Done: 01/08/21 15:35 Coding Level of Care Code D/C DAY MANAGEMENT >30 MINS Diagnoses Atrial fibrillation with rapid ventricular response I48.91 Chest pain R07.9 Chest pain type: unspecified CAD (coronary artery disease) I25.10 HTN (hypertension) I10 HLD (hyperlipidemia) E78.5 Hx of CABG Z95.1 S/P mitral valve repair Z98.890 H/O maze procedure Z98.890 Leukocytosis D72.829
--- NOTE | 2021-01-09 08:56 | Electrocardiogram Report ---
Test Reason : Blood Pressure : / mmHG Vent. Rate : 076 BPM Atrial Rate : 076 BPM P-R Int : 178 ms QRS Dur : 094 ms QT Int : 384 ms P-R-T Axes : 025 028 019 degrees QTc Int : 432 ms Sinus rhythm with occasional Premature ventricular complexes Right atrial enlargement Borderline ECG When compared with ECG of 08-JAN-2021 07:36, Sinus rhythm has replaced Atrial fibrillation Confirmed by Srinivasa Gan ([id number]) on 01/09/2021 8:55:42 AM Referred By: REFERRED SELF Confirmed By:Srinivasa Gan
== END 2021-01-08 16:36 | disposition home or self-care (01) | DRG 310 ==
LOC: ED 07:44 → SUATTDRO 10:41 → 2E 10:41

== ENCOUNTER 2021-03-22 16:39 | Observation (INO) ==
[2021-03-22] MEDS ORDERED: dilTIAZem HCl 5 MG/ML 5 ML VIAL IV STA (17:09)
[2021-03-22] MEDS ORDERED: STAT IV Infusion **Titration per Protocol STA (17:09)
[2021-03-22] MEDS ORDERED: dilTIAZem HCL 125 MG in DEXTROSE 5% 100 ML IV SCH (17:15)
--- NOTE | 2021-03-22 17:16 | Emergency Department Note ---
Impression & Plan Atrial fibrillation with rapid ventricular response, Chest pain ED Provider Note NAME: RYAN CORRALES AGE: 61 SEX: M : 1960 ARRIVES VIA: Walk-In INFORMANT: Patient ED PROVIDER(S): Cam Obando DO CHIEF COMPLAINT: Chest pain HPI: Patient is a 61-year-old male who presents ER for midsternal chest pressure. This started about 1 to 2 hours prior to arrival. He was working and walking. 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 He admits to a history of TIA, paroxysmal A. fib with previous ablation, CABG x2 as well as a valve replacement. He notes that he feels slightly short of breath. Denies any belly pain, nausea, vomiting, or diarrhea. He carries a pulse oximeter with him and he checked his heart rate and it was in the 140s. He came back in as he was here 2 months ago for A. fib. He has not missed any doses of any of his medications. This feels like his previous bouts of A. fib. He normally does not feel his heart racing but has the chest pressure. No previous MIs per patient. ROS: See above HPI for pertinent positives & negatives. A total of 10 systems reviewed and were otherwise negative. PAST MEDICAL HISTORY:See Below PAST SURGICAL HISTORY:See Below FAMILY HISTORY:See Below SOCIAL HISTORY:See Below HOME MEDICATIONS:See Below ALLERGIES:See Below VITALS:See Below PHYSICAL EXAMINATION: GENERAL: Sitting up in bed, alert, well appearing, well nourished, no distress, non-toxic EYE EXAM: normal conjunctiva. PERRL and EOM's grossly intact. OROPHARYNX: no exudate, no erythema, lips, buccal mucosa, and tongue normal and mucous membranes are moist NECK: supple, no nuchal rigidity, no adenopathy, non-tender LUNGS: Clear to auscultation. Normal chest wall mechanics HEART: Tachycardic and irregular regular, S1 normal and S2 normal ABDOMEN: abdomen soft, non-tender, normo-active bowel sounds, no masses, no rebound or guarding. UPPER EXTREMITIES: upper extremities are grossly normal. LOWER EXTREMITIES: No pitting edema. NEURO EXAM: Normal sensorium, cranial nerves II-XII grossly intact, normal speech, no gross weakness of arms, no gross weakness of legs. MEDICAL DECISION MAKING: Patient is a 59-year-old male with paroxysmal A. fib that presents the ER for shortness of breath and mild chest pressure and uses pulse ox at home and showed a heart rate of 140. Feels consistent with previous bouts of A. fib. IV was established blood work was obtained. Labs show no significant leukocytosis or anemia. BMP with LFTs bilirubin lipase and troponin was unremarkable. Covid was negative. Patient was given a Cardizem bolus and placed on Cardizem drip. Heart rate did trend down. EKG shows A. fib with RVR. Discussed with hospitalist admitted for further work-up. Patient was also given IV fluids. Triage Nursing notes reviewed. Limited review of prior medical records performed Vital Signs: reviewed and remarkable for tachy Differential diagnosis: Differential diagnoses includes but is not limited to acute coronary syndrome, myocardial infarction, pericarditis, pulmonary embolus, aortic dissection, pneumonia, pneumothorax, musculoskeletal, shingles, esophageal. ER treatment provided: See below Diagnostics interpreted by me: ECG: Atrial flutter rate of 139 Normal axis No PVCs QTC 468 Cardiac Monitoring: An order was placed for continuous cardiac monitoring. The monitor shows a rate of 140 with sinus rhythm. Laboratory studies: As stated above and show below. Imaging studies: Chest x-ray shows no focal infiltrate Consultation(s): Discussed with Addy Keane for further evaluation Procedures: none Critical Care: I have personally spent 32 minutes of critical care time in the direct management of this patient. This includes bedside care, interpretation of diagnostic studies, and testing, discussion with consultants, patient, and family members, and other required patient management activities. This 32 minutes is in excess of all separately billable procedures. Past Med/Surg History Medical History Basilar migraine CAD (coronary artery disease) Genitofemoral neuralgia of left side HLD (hyperlipidemia) HTN (hypertension) Osteoarthritis of left shoulder PAF (paroxysmal atrial fibrillation) Right foot pain TIA (transient ischemic attack) Surgical History H/O heart bypass surgery 2018 H/O inguinal hernia repair Repair of left indirect inguinal hernia with mesh 11-01-08 Dr. 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 Beliefs That Will Affect Care: None marital status: Current Living Situation: Spouse Other Information That Helps Us Care for You: No Feels Safe at Home: Yes Safety Concerns: Feels Safe At This Time Assistive Devices: Glasses Allergies Allergies Allergy/AdvReac Type Severity Reaction Status Date / Time omeprazole Allergy Rash Verified 03/22/21 17:15 Home Meds Home Medications Medication Instructions Recorded Confirmed aspirin 81 mg tablet,delayed 81 mg PO QAM 08/17/18 03/22/21 release (Aspirin Low Dose) rosuvastatin 20 mg tablet 20 mg PO HS 08/25/20 03/22/21 metoprolol tartrate 37.5 mg tablet 37.5 mg PO DAILY 02/08/21 03/22/21 Previous Rx's Medication Instructions Recorded apixaban 5 mg tablet (Eliquis) 5 mg PO BID #60 tab 01/08/21 Results & Data (ED) Vital Signs Vital Signs - 24 hr 03/22/21 16:46 03/22/21 17:21 03/22/21 17:22 Temperature 37 C Temperature Source Oral Pulse Rate 144 H Pulse Rate [Apical] 128 H Pulse Rate from SpO2 Sensor Respiratory Rate 22 20 Respiratory Effort / Characteristics Non-Labored Spontaneous Respiratory Depth Normal Blood Pressure 160/98 H Blood Pressure [Right Arm] 162/112 H Blood Pressure Mean 118 Blood Pressure Mean [Right Arm] 128 Blood Pressure Position Sitting Pulse Oximetry 99 99 Oxygen Delivery Method Room Air Room Air Sepsis Recent Fever Within 48 Hours No Sepsis New/Unexplained Change in Mental Status N/A Sepsis Action Taken by Nursing No Action Required 03/22/21 18:00 03/22/21 18:37 03/22/21 19:00 Temperature Temperature Source Pulse Rate 137 H 116 H Pulse Rate [Apical] 136 H Pulse Rate from SpO2 Sensor 111 H Respiratory Rate 18 16 16 Respiratory Effort / Characteristics Respiratory Depth Blood Pressure 140/102 H Blood Pressure [Right Arm] 129/97 Blood Pressure Mean 114 Blood Pressure Mean [Right Arm] 107 Blood Pressure Position Pulse Oximetry 98 97 96 Oxygen Delivery Method Room Air Sepsis Recent Fever Within 48 Hours Sepsis New/Unexplained Change in Mental Status Sepsis Action Taken by Nursing Laboratory Data Result diagrams: 03/22/21 17:09 03/22/21 17:09 Lab Results 03/22/21 03/22/21 03/22/21 Range/Units 17:09 17:09 17:09 WBC 9.47 (4.8-10.8) K/uL RBC 5.37 (4.7-6.1) M/uL Hgb 15.9 (14.0-18.0) g/dL Hct 45.9 (42-52) % MCV 85.5 (80-100) fL MCH 29.6 (25-34) pg MCHC 34.6 (32-36) g/dL RDW Std Deviation 41.7 (36.4-46.3) fL RDW Coeff of Andrew 13.4 (11.5-14.5) % Plt Count 274 (130-400) K/uL MPV 10.1 (7.4-10.4) fL Immature Gran % (Auto) 0.3 % Neut % (Auto) 58.3 % Lymph % (Auto) 33.1 % [place] % (Auto) 5.7 % Eos % (Auto) 2.2 % Baso % (Auto) 0.4 % Neut # (Auto) 5.52 (1.4-6.5) K/uL Lymph # (Auto) 3.13 (1.2-3.4) K/uL [place] # (Auto) 0.54 (0.11-0.59) K/uL Eos # (Auto) 0.21 (0-0.5) K/uL Baso # (Auto) 0.04 (0-0.2) K/uL Immature Gran # (Auto) 0.03 H (0.00-0.02) K/uL APTT 28.8 (21.0-31.0) Seconds PTT Ratio 1.1 Sodium 136 (136-145) mmol/L Potassium 3.6 (3.5-5.1) mmol/L Chloride 104 (98-107) mmol/L Carbon Dioxide 26 (21-32) mmol/L Anion Gap 6.0 (3-11) BUN 12 (7-18) mg/dl Creatinine 0.96 (0.6-1.4) mg/dl Est Cr Clr Drug Dosing 86.3 ml/min Est GFR ( Amer) 97.8 ml/min Est GFR (Non-Af Amer) 84.4 ml/min BUN/Creatinine Ratio 13.0 (10-20) Glucose 106 H (70-99) mg/dl Calcium 9.2 (8.5-10.1) mg/dl Magnesium (1.8-2.4) mg/dl Total Bilirubin 0.4 (0.2-1) mg/dl AST 16 (15-37) U/L ALT 25 (12-78) U/L Alkaline Phosphatase 65 (45-117) U/L Troponin I < 0.015 (0-0.045) ng/ml Total Protein 8.0 (6.4-8.2) gm/dl Albumin 3.9 (3.4-5.0) gm/dl Globulin 4.1 H (2.5-4.0) gm/dl Albumin/Globulin Ratio 0.9 (0.9-2) Lipase 81 (73-393) U/L COVID-19 Eval Order SARS-CoV-2 (PCR) (Negative) 03/22/21 03/22/21 03/22/21 Range/Units 17:09 17:19 17:19 WBC (4.8-10.8) K/uL RBC (4.7-6.1) M/uL Hgb (14.0-18.0) g/dL Hct (42-52) % MCV (80-100) fL MCH (25-34) pg MCHC (32-36) g/dL RDW Std Deviation (36.4-46.3) fL RDW Coeff of Andrew (11.5-14.5) % Plt Count (130-400) K/uL MPV (7.4-10.4) fL Immature Gran % (Auto) % Neut % (Auto) % Lymph % (Auto) % [place] % (Auto) % Eos % (Auto) % Baso % (Auto) % Neut # (Auto) (1.4-6.5) K/uL Lymph # (Auto) (1.2-3.4) K/uL [place] # (Auto) (0.11-0.59) K/uL Eos # (Auto) (0-0.5) K/uL Baso # (Auto) (0-0.2) K/uL Immature Gran # (Auto) (0.00-0.02) K/uL APTT (21.0-31.0) Seconds PTT Ratio Sodium (136-145) mmol/L Potassium (3.5-5.1) mmol/L Chloride (98-107) mmol/L Carbon Dioxide (21-32) mmol/L Anion Gap (3-11) BUN (7-18) mg/dl Creatinine (0.6-1.4) mg/dl Est Cr Clr Drug Dosing ml/min Est GFR ( Amer) ml/min Est GFR (Non-Af Amer) ml/min BUN/Creatinine Ratio (10-20) Glucose (70-99) mg/dl Calcium (8.5-10.1) mg/dl Magnesium 2.4 (1.8-2.4) mg/dl Total Bilirubin (0.2-1) mg/dl AST (15-37) U/L ALT (12-78) U/L Alkaline Phosphatase (45-117) U/L Troponin I (0-0.045) ng/ml Total Protein (6.4-8.2) gm/dl Albumin (3.4-5.0) gm/dl Globulin (2.5-4.0) gm/dl Albumin/Globulin Ratio (0.9-2) Lipase (73-393) U/L COVID-19 Eval Order Covid19 at [facility] SARS-CoV-2 (PCR) NEGATIVE (Negative) Administered Medications Potassium Chloride/Sodium Chloride (Normal Saline W/20 Meq Kcl) 20 meq in 1,000 mls @ 150 mls/hr IV .Q6H40M PASCALE Stop: 04/21/21 19:14 Last Admin: 03/22/21 20:13 Dose: Not Given Documented by: [id number] Discontinued Medications Diltiazem HCl (Diltiazem Hcl 5 Mg/Ml 5 Ml Vial) 15 mg IV NOW STA Stop: 03/22/21 17:10 Last Admin: 03/22/21 17:16 Dose: 15 mg Documented by: [id number] Cosigned by: [id number] Diltiazem HCl 125 mg/ Dextrose 125 mls @ 5 mls/hr IV .Q24H PASCALE; Protocol Stop: 04/21/21 17:14 Last Titration: 03/22/21 21:59 Dose: 0 mg/hr, 0 mls/hr Documented by: [id number] Cosigned by: [id number] Titration: 03/22/21 18:36 Dose: 10 mg/hr, 10 mls/hr Documented by: [id number] Cosigned by: [id number] Admin: 03/22/21 17:44 Dose: 5 mg/hr, 5 mls/hr Documented by: [id number] Cosigned by: [id number] Metoprolol Tartrate (Metoprolol Tartrate 50 Mg Tab) 50 mg PO NOW STA Stop: 03/22/21 19:16 Last Admin: 03/22/21 20:11 Dose: Not Given Documented by: [id number] Metoprolol Tartrate (Metoprolol Tartrate 50 Mg Tab) Confirm Administered Dose 50 mg .ROUTE .STK-MED ONE Stop: 03/22/21 19:28 Last Admin: 03/22/21 19:35 Dose: 50 mg Documented by: [id number] Metoprolol Tartrate (Metoprolol Tartrate 1 Mg/Ml Vial) 5 mg IV NOW ONE Stop: 03/22/21 19:40 Last Admin: 03/22/21 19:47 Dose: 5 mg Documented by: [id number] Metoprolol Tartrate (Metoprolol Tartrate 1 Mg/Ml Vial) Confirm Administered Dose 5 mg IV .STK-MED ONE Stop: 03/22/21 19:44 Last Admin: 03/22/21 20:12 Dose: Not Given Documented by: [id number] Miscellaneous (Stat Iv Infusion Titration Per Protocol) 1 ea N/A NOW STA Stop: 03/22/21 17:10 Last Admin: 03/22/21 17:44 Dose: Not Given Documented by: [id number] Potassium Chloride (Potassium Chloride Crtab 20 Meq Tabcr) 40 meq PO NOW STA Stop: 03/22/21 19:06 Last Admin: 03/22/21 19:34 Dose: 40 meq Documented by: [id number] Potassium Chloride/Sodium Chloride (Nss+Kcl 20 Meq 1000ml) Confirm Administered Dose 20 meq IV .STK-MED ONE Stop: 03/22/21 19:29 Last Admin: 03/22/21 19:35 Dose: 20 meq Documented by: [id number] Imaging Data Radiologist's Impression: Chest X-Ray 03/22/21 17:09 XR chest 1V portable HISTORY: 61 years-old Male Chest Pain acute atypical chest pain COMPARISON: Chest radiograph 01/06/2021 TECHNIQUE: Portable AP view of the chest FINDINGS: Cardiac silhouette is mildly enlarged. Prior median sternotomy with cardiac valvular prosthesis. No pneumothorax, pleural effusion, airspace patient or overt pulmonary edema. Degenerative changes of the shoulders and spine. IMPRESSION: No acute process. ACT 112: Negative or not required by law. The above report was generated using voice recognition software. It may contain grammatical, syntax or spelling errors. Electronically signed by: Mo Garcia M.D. 03/22/2021 5:30 PM Discharge Plan Visit Data Chief Complaint: Arrhythmia/Palpitations Stated Complaint: RAPID HEART BEAT ED Provider: Cam Obando Discharge Problem: Atrial fibrillation with rapid ventricular response, Chest pain Discharge Problem: Chest pain Qualifiers: Chest pain type: unspecified Qualified Code(s): R07.9 - Chest pain, unspecified
[2021-03-22 17:24] LABS: Basophils # (auto) 0.04 K/uL (0-0.2); Basophils % (auto) 0.4 %; Eosinophils # (auto) 0.21 K/uL (0-0.5); Eosinophils % (auto) 2.2 %; Hematocrit (blood only) 45.9 % (42-52); Hemoglobin 15.9 g/dL (14.0-18.0); Immature Granulocytes # (auto) 0.03 K/uL (0.00-0.02); Immature Granulocytes % (auto) 0.3 %; Lymphocytes # (auto) 3.13 K/uL (1.2-3.4); Lymphocytes % (auto) 33.1 %; Mean Corpuscular Hemoglobin 29.6 pg (25-34); Mean Corpuscular Hgb Conc 34.6 g/dL (32-36); Mean Corpuscular Volume 85.5 fL (80-100); Mean Platelet Volume 10.1 fL (7.4-10.4); Monocytes # (auto) 0.54 K/uL (0.11-0.59); Monocytes % (auto) 5.7 %; Neutrophils # (auto) 5.52 K/uL (1.4-6.5); Neutrophils % (auto) 58.3 %; Platelet Count 274 K/uL (130-400); RDW Coefficient of Variation 13.4 % (11.5-14.5); RDW Standard Deviation 41.7 fL (36.4-46.3); Red Blood Count 5.37 M/uL (4.7-6.1); White Blood Count 9.47 K/uL (4.8-10.8)
--- NOTE | 2021-03-22 17:31 | XRay Report ---
XR chest 1V portable HISTORY: 61 years-old Male Chest Pain acute atypical chest pain COMPARISON: Chest radiograph 01/06/2021 TECHNIQUE: Portable AP view of the chest FINDINGS: Cardiac silhouette is mildly enlarged. Prior median sternotomy with cardiac valvular prosthesis. No p neumothorax, pleural effusion, airspace patient or overt pulmonary edema. Degenerative changes of the shoulders and spine. IMPRESSION: No acute process. ACT 112: Negative or not required by law. The above report was generated using voice recognition software. It may contain grammatical, syntax o r spelling errors. Electronically signed by: Mo Garcia M.D. 03/22/2021 5:30 PM
[2021-03-22 17:34] LABS: Partial Thromboplastin Ratio 1.1; Partial Thromboplastin Time 28.8 Seconds (21.0-31.0)
[2021-03-22 17:42] LABS: Alanine Aminotransferase 25 U/L (12-78); Albumin Level 3.9 gm/dl (3.4-5.0); Aspartate Aminotransferase 16 U/L (15-37); Blood Urea Nitrogen 12 mg/dl (7-18); Calcium 9.2 mg/dl (8.5-10.1); Carbon Dioxide 26 mmol/L (21-32); Chloride 104 mmol/L (98-107); Creatinine Clr Calc Pharmacy 86.3 ml/min; Est GFR (African American) 97.8 ml/min; Est GFR (Non-African American) 84.4 ml/min; Glucose 106 mg/dl (70-99); Lipase 81 U/L (73-393); Potassium 3.6 mmol/L (3.5-5.1); Sodium 136 mmol/L (136-145)
[2021-03-22 17:46] LABS: Albumin Globulin Ratio 0.9 (0.9-2); Alkaline Phosphatase 65 U/L (45-117); Bilirubin,Total 0.4 mg/dl (0.2-1); Globulin 4.1 gm/dl (2.5-4.0); Troponin I < 0.015 ng/ml (0-0.045)
[2021-03-22] MEDS ORDERED: POTASSIUM CHLORIDE CRTAB 20 MEQ TABCR PO STA (19:05)
[2021-03-22] MEDS ORDERED: METOPROLOL TARTRATE 50 MG TAB PO STA (19:15)
[2021-03-22] MEDS ORDERED: METOPROLOL TARTRATE 1 MG/ML VIAL IV PRN (19:24)
[2021-03-22] MEDS ORDERED: METOPROLOL TARTRATE 50 MG TAB ONE (19:27)
[2021-03-22] MEDS ORDERED: NSS+KCL 20 MEQ 1000ML IV ONE (19:28)
[2021-03-22] MEDS ORDERED: METOPROLOL TARTRATE 1 MG/ML VIAL IV ONE ×2 (19:39→19:43)
[2021-03-22] MEDS: NSS + 20MEQ KCL 20 MEQ/1,000 ML BAG IV SCH ×2 (20:12→20:13)
--- NOTE | 2021-03-22 21:19 | History & Physical Report ---
Date of Service March 22, 2021 Assessment & Plan (1) PAF (paroxysmal atrial fibrillation): Plan: Paroxysmal atrial fibrillation/CAD/hypertension- The patient will be admitted to telemetry for serial cardiac enzymes, serial EKG's, cardiac rhythm monitoring and a 2-D echocardiogram with Dopplers. Increase metoprolol tartrate from 37.5 mg every morning to 50 mg p.o. twice daily with first dose now. Patient is status post Cardizem 15 mg IV push by the ED. Discontinue Cardizem drip Increase metoprolol tartrate as noted Give Klor-Con 40 mEq p.o. 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 Patient presents with symptoms as noted above. Upon arrival in the emergency department, patient was in atrial fibrillation with heart rate in the 140s Allergies Allergy/AdvReac Type Severity Reaction Status Date / Time omeprazole Allergy Rash Verified 03/22/21 17:15 Home Medications Medication Instructions Recorded Confirmed Type aspirin 81 mg tablet,delayed 81 mg PO QAM 08/17/18 03/22/21 History release (Aspirin Low Dose) rosuvastatin 20 mg tablet 20 mg PO HS 08/25/20 03/22/21 History apixaban 5 mg tablet (Eliquis) 5 mg PO BID #60 tab 01/08/21 03/22/21 Rx metoprolol tartrate 37.5 mg tablet 37.5 mg PO DAILY 02/08/21 03/22/21 History Past Med/Surg History Medical History Basilar migraine CAD (coronary artery disease) Genitofemoral neuralgia of left side HLD (hyperlipidemia) HTN (hypertension) Osteoarthritis of left shoulder PAF (paroxysmal atrial fibrillation) Right foot pain TIA (transient ischemic attack) Surgical History H/O heart bypass surgery 2018 H/O inguinal hernia repair Repair of left indirect inguinal hernia with mesh 11-01-08 Dr. Carney H/O maze procedure S/P mitral valve repair Family History Sister , age 58 Myocardial infarction Uncle , age 60 Myocardial infarction Mother Cancer Grandmother Hypertension Grandfather Cancer Stroke Social History Smoking Status: Never smoker Second Hand Exposure: No; Hx Alcohol Use: Yes Alcohol type: beer Hx Substance Use: No Preferred Language: Indonesian Communication Ability: Effective Doctor Of Radiology Required: No Beliefs That Will Affect Care: None marital status: Current Living Situation: Spouse Feels Safe at Home: Yes Assistive Devices: None Review of Systems Review of Systems: The patient denies cough, lower extremity swelling, sore throat, fevers, chills, sweats, weight change, fatigue, nausea, vomiting, diarrhea , constipation, abdominal pain, pelvic pain, blood in urine or stool, dysuria, urinary frequency or urgency, lightheadedness, dizziness, headache, memory loss, loss of consciousness, rash, abnormal bruising or bleeding, imbalance, focal or generalized weakness, numbness or tingling in arms or legs, generalized arthralgias or myalgias, back or neck pain, or night sweats. The review of systems is otherwise negative other than for that already noted above, and at least 10 systems have been reviewed. Physical Exam Physical Exam: The patient is awake, alert and oriented 3, well developed and well nourished, normocephalic and atraumatic, lying in bed and in no acute distress. HEENT--PERRL, EOMI, mucous membranes and oropharynx dry. Neck--supple. No JVD. No bruits. Thyroid normal, trachea midline, no adenopathy. Heart--irregularly irregular. No murmurs, rubs or gallops. Lungs--clear bilaterally, no respiratory distress, no accessory muscle use. Abdomen--normal bowel sounds and soft. Nontender. Nondistended, no hernias or masses, no organomegaly. Extremities--no cyanosis or clubbing. No edema. Dermatologic--normal skin turgor, normal color, no abnormal lymph nodes, no rash. Neurologic--cranial nerves II through XII grossly intact. Rheumatologic--normal range of motion. Psychiatric--normal affect. Results & Data Results & Data ([facility]) Vital Signs (Past 12 Hours) Vital Signs Temp Pulse Pulse Resp BP BP Pulse Ox 03/22/21 20:00 90 15 96 03/22/21 19:47 132 H 03/22/21 19:00 116 H 16 96 03/22/21 18:37 136 H 16 129/97 97 03/22/21 18:00 137 H 18 140/102 H 98 03/22/21 17:22 128 H 20 162/112 H 99 03/22/21 16:46 98.6 F 144 H 22 160/98 H 99 Laboratory Results Laboratory Results WBC 9.47 K/uL (4.8-10.8) 03/22/21 17:09 RBC 5.37 M/uL (4.7-6.1) 03/22/21 17:09 Hgb 15.9 g/dL (14.0-18.0) 03/22/21 17:09 Hct 45.9 % (42-52) 03/22/21 17:09 MCV 85.5 fL (80-100) 03/22/21 17:09 MCH 29.6 pg (25-34) 03/22/21 17:09 MCHC 34.6 g/dL (32-36) 03/22/21 17:09 RDW Std Deviation 41.7 fL (36.4-46.3) 03/22/21 17:09 RDW Coeff of Andrew 13.4 % (11.5-14.5) 03/22/21 17: Plt Count 274 K/uL (130-400) 03/22/21 17:09 MPV 10.1 fL (7.4-10.4) 03/22/21 17:09 Immature Gran % (Auto) 0.3 % 03/22/21 17: Neut % (Auto) 58.3 % 03/22/21 17:09 Lymph % (Auto) 33.1 % 03/22/21 17:09 [place] % (Auto) 5.7 % 03/22/21 17:09 Eos % (Auto) 2.2 % 03/22/21 17:09 Baso % (Auto) 0.4 % 03/22/21 17:09 Neut # (Auto) 5.52 K/uL (1.4-6.5) 03/22/21 17:09 Lymph # (Auto) 3.13 K/uL (1.2-3.4) 03/22/21 17:09 [place] # (Auto) 0.54 K/uL (0.11-0.59) 03/22/21 17:09 Eos # (Auto) 0.21 K/uL (0-0.5) 03/22/21 17:09 Baso # (Auto) 0.04 K/uL (0-0.2) 03/22/21 17:09 Immature Gran # (Auto) 0.03 K/uL (0.00-0.02) H 03/22/21 17:09 APTT 28.8 Seconds (21.0-31.0) 03/22/21 17:09 PTT Ratio 1.1 03/22/21 17:09 Sodium 136 mmol/L (136-145) 03/22/21 17:09 Potassium 3.6 mmol/L (3.5-5.1) 03/22/21 17:09 Chloride 104 mmol/L (98-107) 03/22/21 17:09 Carbon Dioxide 26 mmol/L (21-32) 03/22/21 17:09 Anion Gap 6.0 (3-11) 03/22/21 17:09 BUN 12 mg/dl (7-18) 03/22/21 17:09 Creatinine 0.96 mg/dl (0.6-1.4) 03/22/21 17:09 Est Cr Clr Drug Dosing 86.3 ml/min 03/22/21 17:09 Est GFR ( Amer) 97.8 ml/min 03/22/21 17:09 Est GFR (Non-Af Amer) 84.4 ml/min 03/22/21 17:09 BUN/Creatinine Ratio 13.0 (10-20) 03/22/21 17:09 Glucose 106 mg/dl (70-99) H 03/22/21 17:09 Calcium 9.2 mg/dl (8.5-10.1) 03/22/21 17:09 Magnesium 2.4 mg/dl (1.8-2.4) 03/22/21 17:09 Total Bilirubin 0.4 mg/dl (0.2-1) 03/22/21 17:09 AST 16 U/L (15-37) 03/22/21 17:09 ALT 25 U/L (12-78) 03/22/21 17:09 Alkaline Phosphatase 65 U/L (45-117) 03/22/21 17:09 Troponin I < 0.015 ng/ml (0-0.045) 03/22/21 17:09 Total Protein 8.0 gm/dl (6.4-8.2) 03/22/21 17:09 Albumin 3.9 gm/dl (3.4-5.0) 03/22/21 17:09 Globulin 4.1 gm/dl (2.5-4.0) H 03/22/21 17:09 Albumin/Globulin Ratio 0.9 (0.9-2) 03/22/21 17:09 Lipase 81 U/L (73-393) 03/22/21 17:09 COVID-19 Eval Order Covid19 at [facility] 03/22/21 17:19 SARS-CoV-2 (PCR) NEGATIVE (Negative) 03/22/21 17:19 Impressions Chest X-Ray 03/22/21 17:09 XR chest 1V portable HISTORY: 61 years-old Male Chest Pain acute atypical chest pain COMPARISON: Chest radiograph 01/06/2021 TECHNIQUE: Portable AP view of the chest FINDINGS: Cardiac silhouette is mildly enlarged. Prior median sternotomy with cardiac valvular prosthesis. No pneumothorax, pleural effusion, airspace patient or overt pulmonary edema. Degenerative changes of the shoulders and spine. IMPRESSION: No acute process. ACT 112: Negative or not required by law. The above report was generated using voice recognition software. It may contain grammatical, syntax or spelling errors. Electronically signed by: Mo Garcia M.D. 03/22/2021 5:30 PM Code Status & VTE Plan Code Status Full code VTE Prophylaxis Plan VTE Prophylaxis will be ordered: Yes PG Care Time/CCT Total # of Minutes Spent Total Time Spent with Patient: Total time spent is greater than 50% in coordination of care (as documented) at patient's floor/unit and/or counseling patient: Coding Level of Care Code INT OBSERVATION CARE 70M LVL 3 Diagnoses PAF (paroxysmal atrial fibrillation) I48.0 HLD (hyperlipidemia) E78.5 CAD (coronary artery disease) I25.10 HTN (hypertension) I10
[2021-03-22] MEDS ORDERED: ROSUVASTATIN CALCIUM 20 MG TAB PO SCH (22:58)
[2021-03-22] MEDS ORDERED: ACETAMINOPHEN 325 MG TAB PO PRN (22:58)
[2021-03-22] MEDS ORDERED: ONDANSETRON INJ 2 MG/ML 2 ML VIAL IV PRN (22:58)
[2021-03-22] MEDS: APIXABAN 5 MG TABLET PO SCH (23:32)
[2021-03-22] MEDS: METOPROLOL TARTRATE 50 MG TAB PO SCH (23:32)
[2021-03-23] MEDS: NSS + 20MEQ KCL 20 MEQ/1,000 ML BAG IV SCH ×2 (03:27→10:28)
[2021-03-23 05:35] LABS: Basophils # (auto) 0.02 K/uL (0-0.2); Basophils % (auto) 0.2 %; Eosinophils # (auto) 0.17 K/uL (0-0.5); Eosinophils % (auto) 1.9 %; Hematocrit (blood only) 45.9 % (42-52); Hemoglobin 15.4 g/dL (14.0-18.0); Immature Granulocytes # (auto) 0.02 K/uL (0.00-0.02); Immature Granulocytes % (auto) 0.2 %; Lymphocytes # (auto) 2.76 K/uL (1.2-3.4); Lymphocytes % (auto) 30.8 %; Mean Corpuscular Hemoglobin 28.8 pg (25-34); Mean Corpuscular Hgb Conc 33.6 g/dL (32-36); Monocytes % (auto) 7.8 %; Neutrophils # (auto) 5.29 K/uL (1.4-6.5); Neutrophils % (auto) 59.1 %; Platelet Count 277 K/uL (130-400); RDW Coefficient of Variation 13.8 % (11.5-14.5); RDW Standard Deviation 43.1 fL (36.4-46.3); Red Blood Count 5.34 M/uL (4.7-6.1); White Blood Count 8.96 K/uL (4.8-10.8)
[2021-03-23 05:45] LABS: Partial Thromboplastin Ratio 1.1; Partial Thromboplastin Time 29.9 Seconds (21.0-31.0); Prothrombin Time 10.5 Seconds (9.0-12.0)
[2021-03-23 06:18] LABS: Alanine Aminotransferase 22 U/L (12-78); Albumin Globulin Ratio 0.9 (0.9-2); Albumin Level 3.3 gm/dl (3.4-5.0); Alkaline Phosphatase 57 U/L (45-117); Aspartate Aminotransferase 16 U/L (15-37); BUN Creatinine Ratio 12.5 (10-20); Bilirubin,Total 0.6 mg/dl (0.2-1); Blood Urea Nitrogen 11 mg/dl (7-18); Calcium 8.5 mg/dl (8.5-10.1); Carbon Dioxide 26 mmol/L (21-32); Chloride 113 mmol/L (98-107); Creatinine Clr Calc Pharmacy 83.3 ml/min; Est GFR (African American) 102.9 ml/min; Est GFR (Non-African American) 88.8 ml/min; Globulin 3.6 gm/dl (2.5-4.0); Glucose 101 mg/dl (70-99); Magnesium 2.2 mg/dl (1.8-2.4); Potassium 4.4 mmol/L (3.5-5.1); Sodium 142 mmol/L (136-145); Total Protein 6.9 gm/dl (6.4-8.2); Troponin I < 0.015 ng/ml (0-0.045)
[2021-03-23] MEDS: APIXABAN 5 MG TABLET PO SCH (08:01)
[2021-03-23] MEDS ORDERED: ASPIRIN 81 MG ECTAB PO SCH (09:00)
--- NOTE | 2021-03-23 09:32 | Cardiology Consultation ---
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 He actually felt quite well and notes he is felt well over the last week. All of a sudden he had a sensation of mild discomfort on the left side of his chest and just felt like his breathing was slightly off. 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 He was hoping it would go away. 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 He was given IV diltiazem and converted back to sinus rhythm. He is currently in the emergency room. He is in sinus rhythm. He feels well. He denies any further chest pain or chest pressure. [place] any shortness of breath. Denies any lightest dizziness presuming syncope. Has a lower extremity edema. The rest of a complete her systems otherwise negative Allergies Allergy/AdvReac Type Severity Reaction Status Date / Time omeprazole Allergy Rash Verified 03/22/21 17:15 Home Medications Medication Instructions Recorded Confirmed Type aspirin 81 mg tablet,delayed 81 mg PO QAM 08/17/18 03/22/21 History release (Aspirin Low Dose) rosuvastatin 20 mg tablet 20 mg PO HS 08/25/20 03/22/21 History apixaban 5 mg tablet (Eliquis) 5 mg PO BID #60 tab 01/08/21 03/22/21 Rx metoprolol tartrate 37.5 mg tablet 37.5 mg PO DAILY 02/08/21 03/22/21 History Patient History Medical History Basilar migraine CAD (coronary artery disease) Genitofemoral neuralgia of left side HLD (hyperlipidemia) HTN (hypertension) Osteoarthritis of left shoulder PAF (paroxysmal atrial fibrillation) Right foot pain TIA (transient ischemic attack) Surgical History H/O heart bypass surgery 2018 H/O inguinal hernia repair Repair of left indirect inguinal hernia with mesh 11-01-08 Dr. Carney H/O maze procedure S/P mitral valve repair Family History Sister , age 58 Myocardial infarction Uncle , age 60 Myocardial infarction Mother Cancer Grandmother Hypertension Grandfather Cancer Stroke Social History Smoking Status: Never smoker Second Hand Exposure: No; Hx Alcohol Use: No Hx Substance Use: No Preferred Language: Lebanese Communication Ability: Effective Tile Picker Required: No Beliefs That Will Affect Care: None marital status: Current Living Situation: Spouse Other Information That Helps Us Care for You: No Feels Safe at Home: Yes Safety Concerns: Feels Safe At This Time Assistive Devices: Glasses Results & Data ([facility]) Vital Signs (Past 12 Hours) Vital Signs Temp Pulse Pulse Pulse Resp BP BP 03/23/21 08:00 36.6 C 63 14 118/77 03/23/21 04:57 36.9 C 79 19 118/81 03/23/21 00:22 84 19 03/23/21 00:00 96 H 19 124/95 03/22/21 22:00 36.7 C 77 63 20 123/95 Pulse Ox 03/23/21 08:00 97 03/23/21 04:57 98 03/23/21 00:22 03/23/21 00:00 97 03/22/21 22:00 96 he is awake alert and oriented x3 he is in no acute distress. HEENT: Mildly reduced carotid upstrokes with tachycardia no evidence of carotid bruits Lungs: Clear to auscultation bilaterally no rales rhonchi wheezing Heart regular rate and rhythm no appreciable murmurs rubs or gallops abdomen: Soft nontender distended positive bowel sounds extremities no clubbing cyanosis or edema psychiatric affect appears normal His laboratory studies were reviewed as well as his EKG and telemetry strips IMPRESSION: 1. Symptomatic paroxysmal atrial fibrillation vs left sided Atrial Flutter with a chads 2 vascular score of 2 2. Coronary disease status post coronary bypass grafting x2 with a TOUSSAINT to the LAD and an SVG to the OM 3. Status post mitral valve repair involving the P2 segment with annuloplasty ring Maze procedure and ligation of left atrial appendage July [address] [facility] 2019 EF 45 to 50% with mild global hypokinesis; previous echocardiogram in the [facility] system suggesting an EF in the range of 55% 5. Preoperative paroxysmal atrial fibrillation 6. Hyperlipidemia 7. Hypertension 8. Three-vessel coronary artery disease with severe left main disease into the ostial portion of the circumflex with a 50% mid RCA lesion As I discussed with Justin long-term I think he has 2 options 1 is to consider antiarrhythmic therapy the other is to consider ablative therapy. As I discussed him given his coronary disease he cannot receive flecainide. He is too young to receive amiodarone given the potential long-term side effects. From an antiarrhythmic standpoint I would only leave his Tikosyn and sotalol which would require 3-day hospitalization which she is not interested in. In reviewing his EKGs especially the one during this admission in retrospect looking back at the previous admission in December it looks like an organized rhythm. My hope would be that this might be an atypical left-sided atrial flutter around his mitral valve ring or an atrial tachycardia. He is interested in considering ablative therapy. I did discuss with him although it does not look like typical right-sided flutter that is always a possibility. Depending on the EP study ultimately he may end up with left-sided atrial flutter ablation and an A. fib ablation at the same time. We will arrange for him to see the EP service at [facility]. In the interim his Toprol has been increased to 37-1/2 mg twice daily from 37- 1/2 mg once a day we will have to watch for excessive bradycardia. I discussed him as long as his heart rate is above 50 and he feels like he can get his heart rate up with activity and he can stay on his current dose. If he starts having symptoms of chronotropic incompetence we would have to reduce the dose. In addition I have given 25 mg of short acting metoprolol tartrate as a pill in a pocket. If he has an episode that last more than 15 minutes he can take 25 mg of tartrate. I discussed and will take at least 1/2-hour to an hour before the work and hopefully allow him to convert without having to come to the emergency room. He is already on anticoagulation and tolerating it. From my standpoint he can be discharged home this was discussed with the primary service. We will arrange for his outpatient follow-up
[2021-03-23] MEDS: METOPROLOL TARTRATE 50 MG TAB PO SCH (09:51)
--- NOTE | 2021-03-23 11:30 | Discharge Summary ---
Date of Service March 23, 2021 Admission HPI Per Admitting Provider The patient is a 61-year-old male with a past medical history including PAF, TIA, basilar migraine, left shoulder osteoarthritis, hyperlipidemia, CAD, CABG x2, hypertension and LFTs. Patient presents with symptoms as noted above. Upon arrival in the emergency department, patient was in atrial fibrillation with heart rate in the 140s Principal Diagnosis Paroxysmal Atrial fibrillation Discharge Exam The patient is awake, alert and oriented 3, well developed and well nourished, normocephalic and atraumatic, lying in bed and in no acute distress. HEENT--PERRL, EOMI, mucous membranes and oropharynx dry. Neck--supple. No JVD. No bruits. Thyroid normal, trachea midline, no adenopathy. Heart--RRR. No murmurs, rubs or gallops. Lungs--clear bilaterally, no respiratory distress, no accessory muscle use. Abdomen--normal bowel sounds and soft. Nontender. Nondistended, no hernias or masses, no organomegaly. Extremities--no cyanosis or clubbing. No edema. Dermatologic--normal skin turgor, normal color, no abnormal lymph nodes, no rash. Neurologic--cranial nerves II through XII grossly intact. Rheumatologic--normal range of motion. Psychiatric--normal affect. Discharge Data Allergies Allergy/AdvReac Type Severity Reaction Status Date / Time omeprazole Allergy Rash Verified 03/22/21 17:15 Consultations 03/22/21 18:16 ED Decision to Admit Stat 03/22/21 22:58 Consult Cardiology Routine Hospital Course (1) PAF (paroxysmal atrial fibrillation): Paroxysmal atrial fibrillation/CAD/hypertension- The patient will be admitted to telemetry for serial cardiac enzymes, serial EKG's, cardiac rhythm monitoring and a 2-D echocardiogram with Dopplers. Increase metoprolol tartrate from 37.5 mg every morning to 50 mg p.o. twice daily with first dose now. Patient is status post Cardizem 15 mg IV push by the ED. Discontinue Cardizem drip Increase metoprolol tartrate as noted Give Klor-Con 40 mEq p.o. times 1L for potassium 3.6 Check a magnesium level NSS + KCl 20 mEq at high 50 mils per hour Give Lopressor 5 mg IV x1 now Continue aspirin and apixaban On day of discharge: Appreciate input from Dr. Rachel (bold) IMPRESSION: 1. Symptomatic paroxysmal atrial fibrillation vs left sided Atrial Flutter with a chads 2 vascular score of 2 2. Coronary disease status post coronary bypass grafting x2 with a TOUSSAINT to the LAD and an SVG to the OM 3. Status post mitral valve repair involving the P2 segment with annuloplasty ring Maze procedure and ligation of left atrial appendage July 2017 4. Echocardiogram [facility] 2019 EF 45 to 50% with mild global hypokinesis; previous echocardiogram in the [facility] suggesting an EF in the range of 55% 5. Preoperative paroxysmal atrial fibrillation 6. Hyperlipidemia 7. Hypertension 8. Three-vessel coronary artery disease with severe left main disease into the ostial portion of the circumflex with a 50% mid RCA lesion As I discussed with Justin long-term I think he has 2 options 1 is to consider antiarrhythmic therapy the other is to consider ablative therapy. As I discussed him given his coronary disease he cannot receive flecainide. He is too young to receive amiodarone given the potential long-term side effects. From an antiarrhythmic standpoint I would only leave his Tikosyn and sotalol which would require 3-day hospitalization which she is not interested in. In reviewing his EKGs especially the one during this admission in retrospect looking back at the previous admission in December it looks like an organized rhythm. My hope would be that this might be an atypical left-sided atrial flutter around his mitral valve ring or an atrial tachycardia. He is interested in considering ablative therapy. I did discuss with him although it does not look like typical right-sided flutter that is always a possibility. Depending on the EP study ultimately he may end up with left-sided atrial flutter ablation and an A. fib ablation at the same time. We will arrange for him to see the EP service at [facility]. In the interim his Toprol has been increased to 37-1/2 mg twice daily from 37- 1/2 mg once a day we will have to watch for excessive bradycardia. I discussed him as long as his heart rate is above 50 and he feels like he can get his heart rate up with activity and he can stay on his current dose. If he starts having symptoms of chronotropic incompetence we would have to reduce the dose. In addition I have given 25 mg of short acting metoprolol tartrate as a pill in a pocket. If he has an episode that last more than 15 minutes he can take 25 mg of tartrate. I discussed and will take at least 1/2-hour to an hour before the work and hopefully allow him to convert without having to come to the emergency room. He is already on anticoagulation and tolerating it. From my standpoint he can be discharged home this was discussed with the primary service. We will arrange for his outpatient follow-up Review discharge planning with patient. Patient agrees with above plan. (2) HLD (hyperlipidemia): Continue rosuvastatin (3) CAD (coronary artery disease): See above (4) HTN (hypertension): See above Total Time Total Time Spent Total Time Spent (In Minutes): 32 Discharge Plan Discharge Items Patient Disposition: Home - Self-Care Reason For Visit: ATRIAL FIB WITH RVR Discharge Diagnosis: Atrial Fib with RVR Activity: Resume your previous activity Non-emergency contact: Primary Care Provider Call non-emergency contact if: you have any medication questions Follow-up/Referrals: Fabricio Vogt, [Primary Care Provider] - Diet: Regular Addtl Attending Provider Instructions: You have been hospitalized for an acute medical problem. During your stay at [facility], we have made an effort to correct the problem that brought you to the hospital while keeping you as comfortable as possible. Medications were used to bring your condition under control and your discharge instructions will include directions for any medications you should take after leaving the hospital. Please make sure you see your Primary Care Provider as part of your follow up plan. Pending Studies at Discharge: No Stand-Alone Forms: [facility], Smoking Cessation Medications and DC Order Prescriptions: New metoprolol tartrate 25 mg tablet 25 mg PO DAILY PRN (Reason: palpitations) Qty: 20 RF: 0 metoprolol succinate 25 mg tablet extended release 24 hr 37.5 mg PO BID Qty: 45 RF: 0 Continued aspirin [Aspirin Low Dose] 81 mg Tablet,Delayed Release (Dr/Ec) 81 mg PO QAM RF: 0 rosuvastatin 20 mg tablet 20 mg PO HS RF: 0 Eliquis 5 mg Tablet 5 mg PO BID Qty: 60 RF: 5 Discontinued metoprolol tartrate 37.5 mg tablet 37.5 mg PO DAILY RF: 0 Discharge Orders: Discharge Order (Routine); Ordered 03/23/21 Ordered By: Tobin Balbuena Admission Data Admit Date/Time: 03/22/21 19:32 Attending Provider: Tobin Balbuena Admit Provider: Addy Keane Primary Care Provider: Fabricio Vogt Other Providers: Addy Keane ; Ace Rachel Other Interventions: Discharge Summary Assessment (RN) Last Done: 03/23/21 10:20 Coding Level of Care Code 03736 OBS Care - Discharge Diagnoses PAF (paroxysmal atrial fibrillation) I48.0 HLD (hyperlipidemia) E78.5 CAD (coronary artery disease) I25.10 HTN (hypertension) I10
--- NOTE | 2021-03-23 17:48 | Electrocardiogram Report ---
Test Reason : Blood Pressure : / mmHG Vent. Rate : 135 BPM Atrial Rate : 136 BPM P-R Int : 000 ms QRS Dur : 088 ms QT Int : 334 ms P-R-T Axes : 000 052 033 degrees QTc Int : 501 ms Supraventricular tachycardia Nonspecific ST and T wave abnormality Abnormal ECG When compared with ECG of 22-MAR-2021 16:57, (unconfirmed) ST no longer depressed in Inferior leads Nonspecific T wave abnormality no longer evident in Inferior leads Confirmed by Scotty Suarez ([id number]) on 03/23/2021 5:47:47 PM Referred By: REFERRED SELF Confirmed By:Bryce Suarez
--- NOTE | 2021-03-24 06:57 | Electrocardiogram Report ---
Test Reason : Blood Pressure : / mmHG Vent. Rate : 060 BPM Atrial Rate : 060 BPM P-R Int : 212 ms QRS Dur : 090 ms QT Int : 438 ms P-R-T Axes : 047 037 046 degrees QTc Int : 438 ms Sinus rhythm with 1st degree A-V block Otherwise normal ECG When compared with ECG of 22-MAR-2021 18:12, (unconfirmed) GA interval has increased Vent. rate has decreased BY [address] no longer depressed in Lateral leads Nonspecific T wave abnormality no longer evident in Lateral leads Confirmed by Scotty Suarez ([id number]) on 03/24/2021 6:57:04 AM Referred By: REFERRED SELF Confirmed By:Bryce Suarez
--- NOTE | 2021-03-24 07:01 | Electrocardiogram Report ---
Test Reason : Blood Pressure : / mmHG Vent. Rate : 139 BPM Atrial Rate : 278 BPM P-R Int : 000 ms QRS Dur : 086 ms QT Int : 308 ms P-R-T Axes : 091 053 -18 degrees QTc Int : 468 ms Atrial flutter with 2:1 A-V conduction Nonspecific ST and T wave abnormality Abnormal ECG When compared with ECG of 08-JAN-2021 11:51, Atrial flutter has replaced Sinus rhythm Vent. rate has increased BY [address] now depressed in Inferior leads ST now depressed in Anterolateral leads Nonspecific T wave abnormality now evident in Lateral leads Confirmed by Scotty Suarez ([id number]) on 03/24/2021 7:01:14 AM Referred By: REFERRED SELF Confirmed By:Bryce Suarez
== END 2021-03-23 11:43 | disposition home or self-care (01) ==
LOC: ED 16:39 → EDINP 16:39 → SUATTDRO 19:32 → EDINP 22:54
DX: Z79.899 Other long term (current) drug therapy; Z79.01 Long term (current) use of anticoagulants; Z95.1 Presence of aortocoronary bypass graft; I10 Essential (primary) hypertension; I25.10 Atherosclerotic heart disease of native coronary artery without angina pectoris; E78.5 Hyperlipidemia, unspecified; Z79.82 Long term (current) use of aspirin; Z86.73 Personal history of transient ischemic attack (TIA), and cerebral infarction without residual deficits; Z88.8 Allergy status to other drugs, medicaments and biological substances; Z20.822 Contact with and (suspected) exposure to COVID-19; I48.0 Paroxysmal atrial fibrillation